=== PATIENT | female | born 1950 | race Caucasian/White ===

== ENCOUNTER 2016-12-22 14:21 | Observation (INO) | payer MEDICARE, BC ==
--- NOTE | 2016-12-22 15:01 | ED ---
General Adult HPI - General Chief complaint: Chest Pain Stated complaint: Chest Pain Time Seen by Provider: 12/22/16 14:36 Source: patient, RN notes reviewed, old records reviewed Mode of arrival: wheelchair Limitations: no limitations - History of Present Illness Initial comments: This is a 66-year-old female ER for evaluation. Patient left-sided her palpitations pressure and shortness of breath. Patient symptoms for 3 days on and off. Not consistent. No fevers, congestion, multiple surgeries and history of CVA. Patient comes in today with continued palpitations and pain. Does admit to increased anxiety. Patient states she also had a near syncopal event earlier today. - Related Data Home Medications Medication Instructions Recorded Confirmed ALPRAZolam [Xanax] 1 mg PO TID PRN 12/20/15 12/22/16 Cholecalciferol [Vitamin D3] 1,000 unit PO DAILY 12/20/15 12/22/16 Cyanocobalamin (Vitamin B-12) 2,500 mcg SUBLINGUAL DAILY 12/20/15 12/22/16 [Vitamin B12] Levothyroxine Sodium [Synthroid] 75 mcg PO DAILY 12/20/15 12/22/16 Loratadine [Claritin] 10 mg PO DAILY 12/20/15 12/22/16 Multivitamins, Thera [Multivitamin] 1 tab PO DAILY 12/20/15 12/22/16 traMADol HCl [Ultram] 50 mg PO TID PRN 12/20/15 12/22/16 Citalopram Hydrobromide [CeleXA] 20 mg PO HS 12/22/16 12/22/16 Etodolac [Lodine XR] 600 mg PO BID 12/22/16 12/22/16 Melatonin 2.5mg 2.5 mg PO HS PRN 12/22/16 12/22/16 Pregabalin [Lyrica] 75 mg PO HS 12/22/16 12/22/16 Allergies Allergy/AdvReac Type Severity Reaction Status Date / Time fluticasone propionate Allergy Rapid Verified 12/22/16 15:11 [From Advair Diskus] Heart Rate prednisone Allergy Rapid Verified 12/22/16 15:11 Heart Rate salmeterol xinafoate Allergy Rapid Verified 12/22/16 15:11 [From Advair Diskus] Heart Rate Sulfa (Sulfonamide Allergy Nausea & Verified 12/22/16 15:11 Antibiotics) Vomiting Review of Systems ROS Statement: Those systems with pertinent positive or pertinent negative responses have been documented in the HPI. ROS Other: All systems not noted in ROS Statement are negative. Past Medical History Past Medical History: Asthma, GERD/Reflux, Osteoarthritis (OA), Thyroid Disorder Additional Past Medical History / Comment(s): migraines, sarcoidosis, hearburn, blood in stool, hx diverticulosis, essential tremors-slight tremor left hand, parkinsons History of Any Multi-Drug Resistant Organisms: None Reported Past Surgical History: Appendectomy, Bariatric Surgery, Bowel Resection, Cholecystectomy, Joint Replacement, Orthopedic Surgery Additional Past Surgical History / Comment(s): kenyatta knee replacement, left shoulder rotator cuff, lap band, gastric sleeve Past Anesthesia/Blood Transfusion Reactions: No Reported Reaction Past Psychological History: Anxiety Smoking Status: Never smoker Past Alcohol Use History: Rare Past Drug Use History: None Reported - Past Family History Mother Family Medical History: Cancer Father Family Medical History: Cancer Sister(s) Family Medical History: Cancer General Exam Limitations: no limitations Course Vital Signs 12/22/16 14:30 Temperature 98.5 F Pulse Rate 71 Respiratory 18 Rate Blood Pressure 173/77 O2 Sat by Pulse 97 Oximetry - Reevaluation(s) Reevaluation #1: 12/22/16 16:11 Patient still does have symptoms of palpitations and pain. Very anxious EKG Findings - EKG Comments: EKG Findings:: EKG shows normal sinus rhythm rate of 62, CT 178, QRS 78, QTC 401 Medical Decision Making - Medical Decision Making 66 female the ER for evaluation of chest pain. Fluttering in his chest and palpitations. Left-sided. Mild shortness of breath and anxiety. Patient does have history of CVA of stress test greater than 50 seniors ago. Patient be admitted for cardiac observation initial EKG and troponin are negative - Lab Data Result diagrams: 12/22/16 14:45 12/22/16 14:45 Lab Results 12/22/16 12/22/16 12/22/16 Range/Units 14:45 14:45 14:45 WBC 10.1 (3.8-10.6) k/uL RBC 5.13 (3.80-5.40) m/uL Hgb 14.6 (11.4-16.0) gm/dL Hct 45.8 (34.0-46.0) % MCV 89.4 (80.0-100.0) fL MCH 28.5 (25.0-35.0) pg MCHC 31.9 (31.0-37.0) g/dL RDW 13.3 (11.5-15.5) % Plt Count 312 (150-450) k/uL Neutrophils % 78 % Lymphocytes % 15 % Monocytes % 4 % Eosinophils % 1 % Basophils % 0 % Neutrophils # 7.9 H (1.3-7.7) k/uL Lymphocytes # 1.5 (1.0-4.8) k/uL Monocytes # 0.4 (0-1.0) k/uL Eosinophils # 0.1 (0-0.7) k/uL Basophils # 0.0 (0-0.2) k/uL PT (9.0-12.0) sec INR (<1.1) APTT (22.0-30.0) sec Sodium 143 (137-145) mmol/L Potassium 4.0 (3.5-5.1) mmol/L Chloride 104 (98-107) mmol/L Carbon Dioxide 28 (22-30) mmol/L Anion Gap 11 mmol/L BUN 17 (7-17) mg/dL Creatinine 0.69 (0.52-1.04) mg/dL Est GFR (MDRD) Af Amer >60 (>60 ml/min/1.73 sqM) Est GFR (MDRD) Non-Af >60 (>60 ml/min/1.73 sqM) Glucose 102 H (74-99) mg/dL Calcium 9.5 (8.4-10.2) mg/dL Magnesium 1.8 (1.6-2.3) mg/dL Total Bilirubin 0.6 (0.2-1.3) mg/dL AST 18 (14-36) U/L ALT 26 (9-52) U/L Alkaline Phosphatase 124 (38-126) U/L Total Creatine Kinase 53 (30-135) U/L CK-MB (CK-2) 0.6 (0.0-2.4) ng/mL CK-MB (CK-2) Rel Index 1.1 Troponin I <0.012 (0.000-0.034) ng/mL Total Protein 8.0 (6.3-8.2) g/dL Albumin 4.1 (3.5-5.0) g/dL 12/22/16 Range/Units 14:45 WBC (3.8-10.6) k/uL RBC (3.80-5.40) m/uL Hgb (11.4-16.0) gm/dL Hct (34.0-46.0) % MCV (80.0-100.0) fL MCH (25.0-35.0) pg MCHC (31.0-37.0) g/dL RDW (11.5-15.5) % Plt Count (150-450) k/uL Neutrophils % % Lymphocytes % % Monocytes % % Eosinophils % % Basophils % % Neutrophils # (1.3-7.7) k/uL Lymphocytes # (1.0-4.8) k/uL Monocytes # (0-1.0) k/uL Eosinophils # (0-0.7) k/uL Basophils # (0-0.2) k/uL PT 11.3 (9.0-12.0) sec INR 1.1 (<1.1) APTT 23.8 (22.0-30.0) sec Sodium (137-145) mmol/L Potassium (3.5-5.1) mmol/L Chloride (98-107) mmol/L Carbon Dioxide (22-30) mmol/L Anion Gap mmol/L BUN (7-17) mg/dL Creatinine (0.52-1.04) mg/dL Est GFR (MDRD) Af Amer (>60 ml/min/1.73 sqM) Est GFR (MDRD) Non-Af (>60 ml/min/1.73 sqM) Glucose (74-99) mg/dL Calcium (8.4-10.2) mg/dL Magnesium (1.6-2.3) mg/dL Total Bilirubin (0.2-1.3) mg/dL AST (14-36) U/L ALT (9-52) U/L Alkaline Phosphatase (38-126) U/L Total Creatine Kinase (30-135) U/L CK-MB (CK-2) (0.0-2.4) ng/mL CK-MB (CK-2) Rel Index Troponin I (0.000-0.034) ng/mL Total Protein (6.3-8.2) g/dL Albumin (3.5-5.0) g/dL - Radiology Data Radiology results: report reviewed (Chest x-ray negative for acute disease), image reviewed Critical Care Time Critical Care Time: Yes Total Critical Care Time: 31 Disposition Clinical Impression: Chest pain Disposition: HOME SELF-CARE Condition: Good Instructions: Chest Pain (ED) Referrals: Rajan Henao DO [Primary Care Provider] - 1-2 days
[2016-12-22 15:04] LABS: Basophils % (A) 0 %; CH 29.4; Eosinophils # (A) 0.1 k/uL (0-0.7); Eosinophils % (A) 1 %; HCT 45.8 % (34.0-46.0); HDW 2.28; HGB 14.6 gm/dL (11.4-16.0); Luc # (Auto) 0.18; Luc % (Auto) 2; Lymphocytes # (A) 1.5 k/uL (1.0-4.8); Lymphocytes % (A) 15 %; MCH 28.5 pg (25.0-35.0); MCHC 31.9 g/dL (31.0-37.0); MCV 89.4 fL (80.0-100.0); Mean Platelet Volume 6.5; Monocytes # (A) 0.4 k/uL (0-1.0); Monocytes % (A) 4 %; Neutrophils # (A) 7.9 k/uL (1.3-7.7); Neutrophils % (A) 78 %; RBC 5.13 m/uL (3.80-5.40); RDW 13.3 % (11.5-15.5); WBC 10.1 k/uL (3.8-10.6); WBC (Perox) 10.32
[2016-12-22 15:12] LABS: ALT 26 U/L (9-52); AST 18 U/L (14-36); Alkaline Phosphatase 124 U/L (38-126); Anion Gap 11 mmol/L; Blood Urea Nitrogen 17 mg/dL (7-17); Calcium 9.5 mg/dL (8.4-10.2); Carbon Dioxide 28 mmol/L (22-30); Chloride 104 mmol/L (98-107); Glucose 102 mg/dL (74-99); Magnesium 1.8 mg/dL (1.6-2.3); Non-African American GFR(MDRD) >60 (>60 ml/min/1.73 sqM); Sodium 143 mmol/L (137-145); Total Bilirubin 0.6 mg/dL (0.2-1.3)
[2016-12-22 15:13] LABS: INR 1.1 (<1.1); Partial Thromboplastin Time 23.8 sec (22.0-30.0); Prothrombin Time 11.3 sec (9.0-12.0)
--- NOTE | 2016-12-22 15:15 | XR ---
EXAMINATION TYPE: XR chest 2V DATE OF EXAM: 12/22/2016 3:09 PM COMPARISON: NONE HISTORY: Chest pain TECHNIQUE: Frontal and lateral views of the chest are obtained. FINDINGS: Heart size is borderline increased. There are overlying cardiac leads. No pneumothorax or pleural effusion. Minimal patchy basilar density suspected on the lateral view. Patient is rotated. P ulmonary vascularity and kasey are within normal limits. IMPRESSION: There may be basilar atelectasis or early airspace disease, cardiomegaly is suspected. R otated exam, follow-up as indicated
[2016-12-22 15:19] LABS: Creatine Kinase 53 U/L (30-135)
[2016-12-22 15:32] LABS: Creatine Kinase MB 0.6 ng/mL (0.0-2.4); Troponin I <0.012 ng/mL (0.000-0.034)
[2016-12-22] MEDS ORDERED: NITROGLYCERIN SL TABS 0.4 MG TAB SUBLINGUAL PRN (16:04)
[2016-12-22] MEDS ORDERED: ASPIRIN 81 MG CHEW PO STA (16:04)
[2016-12-22] MEDS ORDERED: HEPARIN SODIUM,PORCINE 5,000 UNIT/ML 1 ML VIAL IV ONE (16:04)
[2016-12-22] MEDS ORDERED: HEPARIN SODIUM,PORCINE/D5W PMX 25,000 UNIT in DEXTROSE/WATER 1 500ML.BAG IV SCH (16:15)
[2016-12-22] MEDS: SODIUM CHLORIDE 0.9% 1,000 ML IV SCH (16:22)
[2016-12-22] MEDS: HEPARIN SODIUM,PORCINE 5,000 UNIT/ML 1 ML VIAL IV PRN (16:25)
[2016-12-22] MEDS ORDERED: MELATONIN 5 MG TABLET PO PRN (21:00)
[2016-12-22] MEDS ORDERED: ALPRAZolam 0.5 MG TAB PO PRN (21:00)
[2016-12-22] MEDS ORDERED: CITALOPRAM HYDROBROMIDE 20 MG TAB PO SCH (21:00)
[2016-12-22] MEDS ORDERED: traMADol 50 MG TAB PO PRN (21:00)
[2016-12-22] MEDS ORDERED: PREGABALIN 75 MG CAP PO SCH (21:15)
[2016-12-22 21:18] LABS: Creatine Kinase 55 U/L (30-135)
[2016-12-22 21:32] LABS: Creatine Kinase MB 0.7 ng/mL (0.0-2.4); Troponin I <0.012 ng/mL (0.000-0.034)
[2016-12-22] MEDS: ETODOLAC 400 MG TAB PO SCH (22:00)
[2016-12-23] MEDS: HEPARIN SODIUM,PORCINE 5,000 UNIT/ML 1 ML VIAL IV PRN (01:53)
[2016-12-23 03:37] LABS: Mean Platelet Volume 7.3
[2016-12-23 04:17] LABS: Creatine Kinase 55 U/L (30-135)
[2016-12-23 04:20] LABS: Cholesterol 193 mg/dL (<200); HDL Cholesterol 58 mg/dL (40-60); Triglycerides 110 mg/dL (<150)
[2016-12-23 04:29] LABS: Creatine Kinase MB 0.6 ng/mL (0.0-2.4); Troponin I <0.012 ng/mL (0.000-0.034)
[2016-12-23] MEDS ORDERED: LEVOTHYROXINE 75 MCG TAB PO SCH (06:30)
[2016-12-23 08:00] VITALS: RESP 18
[2016-12-23] MEDS ORDERED: ASPIRIN 325 MG TAB PO SCH (09:00)
[2016-12-23] MEDS ORDERED: LORATADINE 10 MG TAB PO SCH (09:00)
[2016-12-23] MEDS ORDERED: ATORVASTATIN 80 MG TAB PO SCH (09:00)
[2016-12-23] MEDS ORDERED: DOBUTamine DRIP for NUC MED 500 MG in DEXTROSE/WATER 1 250ML.BAG IV ONE (10:20)
--- NOTE | 2016-12-23 10:24 | P.CRDCN ---
History of Present Illness Consult date: 12/23/16 Requesting physician: Valencia June Consult reason: chest pain Chief complaint: Chest discomfort History of present illness: This is a 66-year-old female with history of prior CVA, sarcoidosis, Parkinson's, prior hypertension, she used to take medication for blood pressure but had gastric sleeve surgery, lost approximately 120 pounds and since then has not been on any antihypertensives, she does have hypothyroidism, diverticulosis and Mild anxiety. Patient does not have diabetes, no hyperlipidemia, nonsmoker, no family history of premature coronary artery disease. Patient presents to the hospital with symptoms of discomfort that started in the lower epigastric area, she states then it feels like shocking, stabbing sensations echo throughout her entire body down into the abdomen and up into her face. She states that she experiences these symptoms off and on with or without exertion. Symptoms lasted seconds to 1 minute in duration. Patient then becomes extremely anxious when these symptoms occur. EKG on arrival showed normal sinus rhythm with no acute changes. EKG this morning shows normal sinus rhythm with no acute changes. Laboratory data, CBC normal. Potassium 4.0, BUN 17, creatinine 0.6. Troponins negative 3. Cholesterol 193 , LDL 113, triglycerides 110, HDL 58. Blood pressure 173/77 on admission. Blood pressure this morning 107/60 heart rate in the 60s. Chest x-ray reveals bibasilar atelectasis. At the time of my examination this morning, patient's only complaint is that of a headache. Past Medical History Past Medical History: Asthma, CVA/TIA, Fibromyalgia, GERD/Reflux, Osteoarthritis (OA), Thyroid Disorder Additional Past Medical History / Comment(s): migraines, sarcoidosis, hearburn, hx diverticulosis/gastritis/esophagitis, essential tremors-slight tremor left hand, parkinsons, carpal tunnel,"stroke when i was in my 20's when i was on control-affected non dominant side (lt) ."my whole left side feels numb under the skin", chronic back pain, sciatic nerve pain. pt stated -had a pne vaccine 2-3 years ago but not srue of date. History of Any Multi-Drug Resistant Organisms: None Reported Past Surgical History: Appendectomy, Bariatric Surgery, Bowel Resection, Cholecystectomy, Joint Replacement, Orthopedic Surgery Additional Past Surgical History / Comment(s): kenyatta knee replacement, left shoulder rotator cuff, lap band- then removed , gastric sleeve Past Anesthesia/Blood Transfusion Reactions: No Reported Reaction Additional Past Anesthesia/Blood Transfusion Reaction / Comment(s): clausterphobia Past Psychological History: Anxiety Additional Psychological History / Comment(s): pt lives in house with , has 5 or 6 steps to get into house. home is on one level, has 2 dogs. no outside services. has cane/ealker,shower chair and raised toilet. pt is retired- worked in retail. Smoking Status: Never smoker Past Alcohol Use History: Rare Past Drug Use History: None Reported - Past Family History Mother Family Medical History: Cancer Father Family Medical History: Cancer Sister(s) Family Medical History: Cancer Medications and Allergies Home Medications Medication Instructions Recorded Confirmed Type ALPRAZolam [Xanax] 1 mg PO TID PRN 12/20/15 12/22/16 History Cholecalciferol [Vitamin D3] 1,000 unit PO DAILY 12/20/15 12/22/16 History Cyanocobalamin (Vitamin B-12) 2,500 mcg SUBLINGUAL DAILY 12/20/15 12/22/16 History [Vitamin B12] Levothyroxine Sodium [Synthroid] 75 mcg PO DAILY 12/20/15 12/22/16 History Loratadine [Claritin] 10 mg PO DAILY 12/20/15 12/22/16 History Multivitamins, Thera [Multivitamin] 1 tab PO DAILY 12/20/15 12/22/16 History traMADol HCl [Ultram] 50 mg PO TID PRN 12/20/15 12/22/16 History Citalopram Hydrobromide [CeleXA] 20 mg PO HS 12/22/16 12/22/16 History Etodolac [Lodine XR] 600 mg PO BID 12/22/16 12/22/16 History Melatonin 2.5mg 2.5 mg PO HS PRN 12/22/16 12/22/16 History Pregabalin [Lyrica] 75 mg PO HS 12/22/16 12/22/16 History Allergies Allergy/AdvReac Type Severity Reaction Status Date / Time fluticasone propionate Allergy Rapid Verified 12/22/16 15:11 [From Advair Diskus] Heart Rate prednisone Allergy Rapid Verified 12/22/16 15:11 Heart Rate salmeterol xinafoate Allergy Rapid Verified 12/22/16 15:11 [From Advair Diskus] Heart Rate Sulfa (Sulfonamide Allergy Nausea & Verified 12/22/16 15:11 Antibiotics) Vomiting Physical Exam Vitals: Vital Signs Temp Pulse Pulse Resp BP BP Pulse Ox 12/23/16 07:59 97.9 F 65 18 107/54 95 12/23/16 04:00 97.7 F 65 16 148/72 94 L 12/23/16 00:00 97.7 F 70 16 135/70 95 12/22/16 23:40 68 16 12/22/16 20:16 78 16 175/88 97 12/22/16 20:00 78 16 12/22/16 18:34 98.2 F 75 16 177/81 93 L 12/22/16 18:03 97.7 F 68 16 138/87 98 12/22/16 16:09 97.6 F 65 16 156/71 97 Intake and Output 12/22/16 12/23/16 12/23/16 22:59 06:59 14:59 Intake Total 189 Balance 189 Intake: Intake, IV Titration 189 Amount Heparin Sodium,Porcine/ 189 D5w Pmx 25,000 unit In Dextrose/Water 1 500ml. bag @ 8.48 UNITS/KG/HR 20 mls/hr IV .Q24H [facility] Rx#: [id number] Other: Voiding Method Toilet Toilet # Voids 2 Weight 117.5 kg 117.5 kg PHYSICAL EXAMINATION: HEENT: Head is atraumatic, normocephalic. Pupils equal, round. Neck is supple. There is no elevated jugular venous pressure. HEART EXAMINATION: Heart S1 and S2 systolic murmur is heard CHEST EXAMINATION: Lungs are clear to auscultation and precussion. No chest wall tenderness is noted on palpation or with deep breathing. ABDOMEN: Soft, obese, nontender. Bowel sounds are heard. No organomegaly noted. EXTREMITIES: 2+ peripheral pulses with trace evidence of peripheral edema and no calf tenderness noted. NEUROLOGIC patient is awake, alert and oriented -3. . Results 12/23/16 02:54 12/22/16 14:45 Cardiac Enzymes 12/22/16 12/23/16 Range/Units 20:46 02:54 CK-MB (CK-2) 0.7 0.6 (0.0-2.4) ng/mL Troponin I <0.012 <0.012 (0.000-0.034) ng/mL Coagulation 12/23/16 Range/Units 00:59 APTT 29.3 (22.0-30.0) sec Lipids 12/23/16 Range/Units 02:54 Triglycerides 110 (<150) mg/dL Cholesterol 193 (<200) mg/dL HDL Cholesterol 58 (40-60) mg/dL CBC 12/23/16 Range/Units 02:54 Plt Count 298 (150-450) k/uL Current Medications Generic Name Dose Route Start Last Admin Trade Name Freq PRN Reason Stop Dose Admin Alprazolam 1 mg 12/22/16 21:00 12/22/16 22:00 Xanax PO 1 mg TID PRN Administration Anxiety Aspirin 325 mg 12/23/16 09:00 Aspirin PO DAILY [facility] Atorvastatin Calcium 80 mg 12/23/16 09:00 Lipitor PO DAILY [facility] Cholecalciferol 1,000 unit 12/23/16 12:00 Vitamin D3 PO DAILY@1200 [facility] Citalopram Hydrobromide 20 mg 12/22/16 21:00 12/22/16 22:00 Celexa PO 20 mg HS ZEKE Administration Cyanocobalamin 2,000 mcg 12/23/16 12:00 Vitamin B-12 PO DAILY@1200 [facility] Etodolac 400 mg 12/22/16 22:00 12/22/16 22:00 Lodine PO 400 mg TID ZEKE Administration Heparin Sodium (Porcine) 0 unit 12/22/16 16:04 12/23/16 01:53 Heparin IV 4,000 unit Q6HR PRN Administration Low PTT Protocol Heparin Sodium/Dextrose 25,000 500 mls @ 20 mls/hr 12/22/16 16:15 12/23/16 01 :53 unit/ IV Solution IV 11.53 units/kg/hr .Q24H [facility]EKE 27.2 mls/hr Protocol Titration 8.48 UNITS/KG/HR Sodium Chloride 1,000 mls @ 20 mls/hr 12/22/16 16:15 12/22/16 16:22 Saline 0.9% IV 20 mls/hr .Q24H [facility]EKE Administration Levothyroxine Sodium 75 mcg 12/23/16 06:30 12/23/16 04:17 Synthroid PO Not Given DAILY@0630 [facility] Loratadine 10 mg 12/23/16 09:00 Claritin PO DAILY [facility] Melatonin 2.5 mg 12/22/16 21:00 Melatonin PO HS PRN Insomnia Multivitamins 1 each 12/23/16 12:00 Theragran PO DAILY@1200 [facility] Nitroglycerin 0.4 mg 12/22/16 16:04 Nitrostat SUBLINGUAL Q5M PRN Chest Pain Pregabalin 75 mg 12/22/16 21:15 12/22/16 22:01 Lyrica PO 75 mg HS ZEKE Administration Tramadol HCl 50 mg 12/22/16 21:00 Ultram PO TID PRN Pain Intake and Output 12/22/16 12/23/16 12/23/16 22:59 06:59 14:59 Intake Total 189 Balance 189 Intake: Intake, IV Titration 189 Amount Heparin Sodium,Porcine/ 189 D5w Pmx 25,000 unit In Dextrose/Water 1 500ml. bag @ 8.48 UNITS/KG/HR 20 mls/hr IV .Q24H [facility] Rx#: [id number] Other: Voiding Method Toilet Toilet # Voids 2 Weight 117.5 kg 117.5 kg 12/23/16 02:54 EKG Interpretations (text) EKG shows normal sinus rhythm with no acute changes. Assessment and Plan Plan: Assessment and plan #1 chest pain, atypical in nature. Troponins negative 3, EKG shows normal sinus rhythm with no acute changes. #2 history of prior hypertension, status post gastric sleeve surgery, antihypertensives discontinued at that time. #3 prior CVA Number for sarcoidosis #5 Parkinson's #6 anxiety #7 diverticulosis #8 hypothyroidism Plan We will obtain an echocardiogram with Doppler study. Obtain fasting lipid profile. Discontinue IV heparin, discontinue Nitropaste. Decrease aspirin 81 mg daily. Patient has been advised to undergo dobutamine echocardiographic study today. Further recommendations will be based on these findings and the patient's clinical course. DNP note has been reviewed, I agree with a documented findings and plan of care. Patient was seen and examined.
[2016-12-23] MEDS: ETODOLAC 400 MG TAB PO SCH (10:38)
[2016-12-23 11:47] VITALS: BP 144/67; PULSE 69; TEMP 98.2
[2016-12-23] MEDS ORDERED: CHOLECALCIFEROL 1,000 UNIT TAB PO SCH (12:00)
[2016-12-23] MEDS ORDERED: CYANOCOBALAMIN 500 MCG TAB PO SCH (12:00)
[2016-12-23] MEDS ORDERED: MULTIVITAMINS, THERA 1 EACH TAB PO SCH (12:00)
--- NOTE | 2016-12-23 12:27 | ECHOS ---
DATE OF SERVICE: 12/23/2016 AGE: 66Y SEX: F HT: 62" WT: 259 lbs. Protocol [place]: Others: Dobutamine Stress Echo Stage: 3 Dur. of Exercise: 6:30 *Heart Rate Blood Pressure *Rest: 62 Rest: 125/68 * *Max. Achieved: 138 Maximum BP: 204/47 85% PMHR: 130 100% PMHR: 153 *METS: - INDICATIONS: Chest pain. MEDICATIONS: - Baseline EKG shows sinus rhythm, normal axis, normal intervals. Patient was given intravenous dobutamine over a period of 6-1/2 minutes as per protocol. Did not have chest pain or diagnostic ST-segment depression. Patient attained 90% of predicted maximal heart rate. Baseline echo shows normal left ventricular size, wall motion and systolic function with a technically suboptimal study and contrast agent was used to enhance endocardial visualization. Post-dobutamine infusion, there is normal hyperdynamic response of all segments of myocardium noted. CONCLUSION: 1. Negative stress test by EKG criteria. 2. Negative dobutamine echo.
--- NOTE | 2016-12-23 13:13 | P.HPIM ---
History of Present Illness H&P Date: 12/23/16 Chief Complaint: Chest pain. History of physical and discharge summary. This is a 66-year-old female one of Dr. Henao with a pacemaker history significant for asthma, CVA/TIA, fibromyalgia, GERD, osteophytes, hypothyroidism, pulmonary sarcoidosis, migraine headaches, ever to close his, essential tremor, Parkinson, carpal tunnel syndrome, morbid obesity post laparoscopic band surgery followed by sleeve gastrectomy for which she had lost about 120 pounds over the past 4 years, patient presented to the emergency department at [facility] yesterday because of episodes that she described as fullness in her stomach associated with electric activity all over her body including her left upper extremity associated with nausea and some difficulty in breathing, patient stated that these episodes have not happened over the last 2 months however started on Thursday and between Thursday and yesterday she did have 12 of them she ended up coming to the ER at [facility] had an EKG that did not show any acute of normalities, her cardiac enzymes were negative, however because of her risk factor it was decided by the emergency room physician to admit the patient for evaluation for possible CAD. Review of Systems Constitutional: Reports chronic pain, Reports fatigue, Reports weakness, Reports weight gain, Denies anorexia, Denies chronic headaches Eyes: denies blurred vision, denies bulging eye, denies decreased vision Ears: deny: decreased hearing Ears, nose, mouth and throat: Denies dysphagia, Denies neck lump, Denies swelling in throat, Denies sore throat, Denies vertigo Cardiovascular: Reports chest pain, Reports dyspnea on exertion, Reports high blood pressure, Reports lightheadedness, Reports palpitations, Reports shortness of breath, Denies rapid heart beat, Denies syncope Respiratory: Reports sleep apnea, Reports snoring, Denies congestion, Denies cough with sputum, Denies home oxygen, Denies wheezing Gastrointestinal: Reports bloating, Reports dyspepsia, Reports nausea, Denies abdominal pain, Denies constipation, Denies diarrhea, Denies excessive gas, Denies heartburn, Denies hematemesis, Denies melena, Denies vomiting Genitourinary: Denies dysuria, Denies hematuria Menstruation: Reports post hysterectomy Musculoskeletal: Reports low back pain, Reports muscle cramps, Reports myalgias Musculoskeletal: absent: ankle pain, ankle stiffness, ankle swelling, elbow pain , elbow stiffness, elbow swelling, foot pain, foot stiffness, foot swelling, hand pain, hand stiffness, hand swelling, hip pain, hip stiffness, hip swelling , knee pain, knee stiffness, knee swelling, shoulder pain, shoulder stiffness, shoulder swelling, wrist pain, wrist stiffness, wrist swelling Integumentary: Denies pruritus, Denies rash Neurological: Denies numbness, Denies weakness Psychiatric: Reports anxiety, Reports anxiety attacks, Reports depression, Reports irritability Endocrine: Denies fatigue, Denies weight change Past Medical History Past Medical History: Asthma, CVA/TIA, Fibromyalgia, GERD/Reflux, Hyperlipidemia , Musculoskeletal Disorder, Osteoarthritis (OA), Thyroid Disorder Additional Past Medical History / Comment(s): migraines, sarcoidosis, hearburn, hx diverticulosis/gastritis/esophagitis, essential tremors-slight tremor left hand, parkinsons, carpal tunnel,"stroke when i was in my 20's when i was on control-affected non dominant side (lt) ."my whole left side feels numb under the skin", chronic back pain, sciatic nerve pain. pt stated -had a pne vaccine 2-3 years ago but not srue of date. History of Any Multi-Drug Resistant Organisms: None Reported Past Surgical History: Appendectomy, Bariatric Surgery, Bowel Resection, Cholecystectomy, Joint Replacement, Orthopedic Surgery Additional Past Surgical History / Comment(s): kenyatta knee replacement, left shoulder rotator cuff, lap band- then removed , gastric sleeve Past Anesthesia/Blood Transfusion Reactions: No Reported Reaction Additional Past Anesthesia/Blood Transfusion Reaction / Comment(s): clausterphobia Past Psychological History: Anxiety Additional Psychological History / Comment(s): pt lives in house with , has 5 or 6 steps to get into house. home is on one level, has 2 dogs. no outside services. has cane/ealker,shower chair and raised toilet. pt is retired- worked in retail. Smoking Status: Never smoker Past Alcohol Use History: Rare Past Drug Use History: None Reported - Past Family History Mother Family Medical History: Cancer (Mother at age 78 from gallbladder cancer.) Father Family Medical History: Cancer (Father at age of 72 from esophageal cancer. ) Sister(s) Family Medical History: Cancer (Patient had one sister who from cervical cancer.) Brother(s) Family Medical History: No Reported History (Patient has one brother no major medical problems.) Son(s) Family Medical History: No Reported History (Patient has 3 sons one of them with irritable bowel syndrome) Medications and Allergies Home Medications Medication Instructions Recorded Confirmed Type ALPRAZolam [Xanax] 1 mg PO TID PRN 12/20/15 12/22/16 History Cholecalciferol [Vitamin D3] 1,000 unit PO DAILY 12/20/15 12/22/16 History Cyanocobalamin (Vitamin B-12) 2,500 mcg SUBLINGUAL DAILY 12/20/15 12/22/16 History [Vitamin B12] Levothyroxine Sodium [Synthroid] 75 mcg PO DAILY 12/20/15 12/22/16 History Loratadine [Claritin] 10 mg PO DAILY 12/20/15 12/22/16 History Multivitamins, Thera [Multivitamin] 1 tab PO DAILY 12/20/15 12/22/16 History traMADol HCl [Ultram] 50 mg PO TID PRN 12/20/15 12/22/16 History Citalopram Hydrobromide [CeleXA] 20 mg PO HS 12/22/16 12/22/16 History Etodolac [Lodine XR] 600 mg PO BID 12/22/16 12/22/16 History Melatonin 2.5mg 2.5 mg PO HS PRN 12/22/16 12/22/16 History Pregabalin [Lyrica] 75 mg PO HS 12/22/16 12/22/16 History Allergies Allergy/AdvReac Type Severity Reaction Status Date / Time fluticasone propionate Allergy Rapid Verified 12/22/16 15:11 [From Advair Diskus] Heart Rate prednisone Allergy Rapid Verified 12/22/16 15:11 Heart Rate salmeterol xinafoate Allergy Rapid Verified 12/22/16 15:11 [From Advair Diskus] Heart Rate Sulfa (Sulfonamide Allergy Nausea & Verified 12/22/16 15:11 Antibiotics) Vomiting Physical Exam Vitals: Vital Signs Temp Pulse Pulse Resp BP BP Pulse Ox 12/23/16 11:46 98.2 F 69 18 144/67 93 L 12/23/16 07:59 97.9 F 65 18 107/54 95 12/23/16 04:00 97.7 F 65 16 148/72 94 L 12/23/16 00:00 97.7 F 70 16 135/70 95 12/22/16 23:40 68 16 12/22/16 20:16 78 16 175/88 97 12/22/16 20:00 78 16 12/22/16 18:34 98.2 F 75 16 177/81 93 L 12/22/16 18:03 97.7 F 68 16 138/87 98 12/22/16 16:09 97.6 F 65 16 156/71 97 Intake and Output 12/22/16 12/23/16 12/23/16 22:59 06:59 14:59 Intake Total 189 Balance 189 Intake: Intake, IV Titration 189 Amount Heparin Sodium,Porcine/ 189 D5w Pmx 25,000 unit In Dextrose/Water 1 500ml. bag @ 8.48 UNITS/KG/HR 20 mls/hr IV .Q24H ZEKE Rx#: [id number] Other: Voiding Method Toilet Toilet # Voids 2 Weight 117.5 kg 117.5 kg - Constitutional General appearance: no acute distress, obese - EENT Eyes: anicteric sclerae, PERRLA, no ptosis, no scleral icterus, normal appearance ENT: hard of hearing, normal oropharynx, no thrush Ears: bilateral: normal - Neck Neck: no lymphadenopathy, normal ROM, no rigidity, no stridor, no thyromegaly Carotids: bilateral: upstroke normal Thyroid: bilateral: normal size - Respiratory Respiratory: bilateral: diminished, negative: dullness, rales, rhonchi, wheezing , prolonged expiration, prolonged inspiration - Cardiovascular Rhythm: regular Heart sounds: normal: S1, S2 Abnormal Heart Sounds: systolic murmur, no rub, no S3 Gallop, no S4 Gallop, no click - Gastrointestinal General gastrointestinal: normal bowel sounds, soft, no splenomegaly, no tenderness, no umbilical hernia, no ventral hernia - Integumentary Integumentary: normal, normal turgor - Neurologic Neurologic: CNII-XII intact - Musculoskeletal Musculoskeletal: strength equal bilaterally - Psychiatric Psychiatric: A&O x's 3, appropriate affect, intact judgment & insight Results CBC & Chem 7: 12/23/16 02:54 12/22/16 14:45 Labs: Abnormal Lab Results - Last 24 Hours (Table) 12/23/16 Range/Units 02:54 LDL Cholesterol, Calc 113 H (0-99) mg/dL Thrombosis Risk Factor Assmnt - DVT/VTE Prophylaxis DVT/VTE Prophylaxis: Pharmacologic Prophylaxis ordered, Mechanical Prophylaxis ordered - Choose All That Apply Any of the Below Risk Factors Present?: Yes Each Factor Represents 1 point: Obesity (BMI >25), Swollen legs (current) Other Risk Factors: Yes Each Risk Factor Represents 2 Points: Age 61-74 years Other congenital or acquired thrombophilia - If yes, enter type in comment: No Thrombosis Risk Factor Assessment Total Risk Factor Score: 4 Thrombosis Risk Factor Assessment Level: Moderate Risk Assessment and Plan Plan: Assessment and plan: 1. Chest discomfort likely related to anxiety disorder and panic attacks. However the patient does have a few risk factors for CAD, subsequent she would be admitted to the hospital as an observation, she will be seen and evaluated by cardiology, patient is scheduled for an echocardiogram as well as a stress test for further recommendation. 2. History of asthma. Stable at this point in time. 3. History of TIA/CVA. Stable at this time. 4. History of GERD. Continue patient on current PPI. 5. History of osteoarthritis. Continue Lodine. Patient is aware of the side effect of the medication. 6. Fibromyalgia. Continue patient on Lyrica 7. Anxiety disorder with panic attack. Continue Celexa 20 mg orally once every day as well as Xanax 1 mg orally twice every day. 8. Morbid obesity post lap band followed by sleeve gastrectomy. Patient had lost about 120 pounds for the past 4 years . 9. Pulmonary sarcoidosis. Appears to be stable at this time. 10. Reported history of Parkinson. Patient is not taking any medication. 11. Carpal tunnel syndrome severe in the right hand and moderate in the left hand. Stable at this time. 12. History of diverticulosis/diverticulitis post partial colectomy. 13. Patient is full code. 14. Observation. 15. Patient can be discharged home if her stress test is negative and follow up with her primary care physician Dr. Henao as an outpatient in 1 week.
[2016-12-23] MEDS: SODIUM CHLORIDE 0.9% 1,000 ML IV SCH (18:02)
[2016-12-24] MEDS ORDERED: ASPIRIN 81 MG CHEW PO SCH (09:00)
--- NOTE | 2016-12-24 10:14 | ECHOF ---
Referral Reason:chest pain MEASUREMENTS -------- HEIGHT: 157.5 cm WEIGHT: 117.5 kg BP: IVSd: 0.8 cm (0.6 - 1.1) LVIDd: 5.4 cm (3.9 - 5.3) LVPWd: 1.1 cm (0.6 - 1.1) IVSs: 1.4 cm LVIDs: 2.7 cm LVPWs: 2.1 cm Ao Diam: 3.5 cm (2.0 - 3.7) AV Cusp: 1.8 cm (1.5 - 2.6) LA Diam: 3.4 cm (2.7 - 3.8) MV EXCURSION: 19.132 mm (> 18.000) MV EF SLOPE: 93 mm/s (70 - 150) EPSS: 1.3 cm MV E John: 1.11 m/s MV DecT: 156 ms MV A John: 1.33 m/s MV E/A Ratio: 0.83 RAP: 5.00 mmHg RVSP: 13.59 mmHg FINDINGS -------- Sinus rhythm. This was a technically difficult study with suboptimal views. Left ventricular wall thickness is normal. Overall left ventricular systolic function is normal with, an EF between 55 - 60 %. The right ventricle is normal in size and function. The left atrium is normal in size. The right atrium is normal in size. 1.5mg of Definity was utilized for enhancement of images The aortic valve was not well visualized. The mitral valve leaflets are mildly thickened. Mild mitral regurgitation is present. Mild tricuspid regurgitation present. The right ventricular systolic pressure, as measured by Doppler, is 13.59mmHg. Pulmonic valve appears structurally normal. The aortic root, ascending aorta and aortic arch are normal. The pericardium is normal. CONCLUSIONS -------- 1. Sinus rhythm. 2. The mitral valve leaflets are mildly thickened. 3. Mild mitral regurgitation is present. 4. Mild tricuspid regurgitation present. 5. The right ventricular systolic pressure, as measured by Doppler, is 13.59mmHg. 6. Pulmonic valve appears structurally normal. 7. The aortic root, ascending aorta and aortic arch are normal. 8. The pericardium is normal. 9. This was a technically difficult study with suboptimal views. 10. Left ventricular wall thickness is normal. 11. Overall left ventricular systolic function is normal with, an EF between 55 - 60 %. 12. The right ventricle is normal in size and function. 13. The left atrium is normal in size. 14. The right atrium is normal in size. 15. 1.5mg of Definity was utilized for enhancement of images 16. The aortic valve was not well visualized. MODEL PHOTOGRAPHERS': Hanny Echevarria RDCS
== END 2016-12-23 15:45 | disposition home or self-care (01) ==
LOC: EC 14:21 → 3OBS 16:04
PROVIDERS: ADMIT Internal Medicine; ATTEND Internal Medicine
DX: R07.89 Other chest pain (principal); F41.0 Panic disorder [episodic paroxysmal anxiety]; J45.909 Unspecified asthma, uncomplicated; R51 Headache; Z86.73 Personal history of transient ischemic attack (TIA), and cerebral infarction without residual deficits; K21.9 Gastro-esophageal reflux disease without esophagitis; M19.90 Unspecified osteoarthritis, unspecified site; M79.7 Fibromyalgia; E66.01 Morbid (severe) obesity due to excess calories; Z68.42 Body mass index [BMI] 45.0-49.9, adult; D86.0 Sarcoidosis of lung; G20 Parkinson's disease; G56.03 Carpal tunnel syndrome, bilateral upper limbs; K57.90 Diverticulosis of intestine, part unspecified, without perforation or abscess without bleeding; E03.9 Hypothyroidism, unspecified; Z79.899 Other long term (current) drug therapy; Z79.1 Long term (current) use of non-steroidal anti-inflammatories (NSAID); Z88.2 Allergy status to sulfonamides; Z88.8 Allergy status to other drugs, medicaments and biological substances; Z98.84 Bariatric surgery status
CPT/HCPCS: 96376 ×3; 96365 ×2; 96366 ×4; 93005 ×2; 99291; 36415; 93017; 93306; 80061; 80053; 82550 ×2; 82553 ×2; 83735; 84484 ×2; 85025; 85049; 85610; 85730 ×2; 71020; G0378 ×2; C8928; J1250; J1644 ×3; Q9957; 93350

== ENCOUNTER → 2019-01-26 | Outpatient (CLI) | payer MEDICARE, BC ==
--- NOTE | 2019-01-26 12:59 | XR ---
EXAMINATION TYPE: XR chest 2V DATE OF EXAM: 01/26/2019 COMPARISON: 12/22/2016 INDICATION: Sarcoidosis of the lung TECHNIQUE: Frontal and lateral views of the chest are obtained. FINDINGS: The heart size is mildly prominent. The pulmonary vasculature is normal. The lungs are clear. Suspicious hilar adenopathy is not identified. CT could be more sensitive for e valuation. IMPRESSION: 1. Mild cardiomegaly
== END ==
LOC: RADXRMAIN 12:24
PROVIDERS: ATTEND Family Medicine
DX: I51.7 Cardiomegaly (principal); D86.0 Sarcoidosis of lung
CPT/HCPCS: 71046

== ENCOUNTER 2019-02-15 07:56 | Day surgery (SDC) | payer MEDICARE, BC ==
[2019-02-10 17:50] VITALS: BMI 50.3
[~2019-02-15 07:56] MED LIST: LACTATED RINGERS 1,000 ML IV SCH
[2019-02-15] MEDS ORDERED: LACTATED RINGERS 1,000 ML IV ONE (08:23)
[2019-02-15 08:24] VITALS: TEMP 97.2
[2019-02-15] MEDS ORDERED: LIDOCAINE 1% 20 ML VIAL (10MG/ML) FOR IV START INTRADERMA ONE (08:24)
[2019-02-15] MEDS ORDERED: PROPOFOL 10 MG/ML 20 ML VIAL IV ONE (08:35)
--- NOTE | 2019-02-15 08:41 | P.GSHP ---
History of Present Illness H&P Date: 02/15/19 Chief Complaint: GI bleed, anemia This a 68-year-old female who presents today for EGD and colonoscopy. She had issues with GI bleed and anemia. Past Medical History Past Medical History: Asthma, Blood Disorder, CVA/TIA, Fibromyalgia, GERD/Reflux, Hyperlipidemia, Hypertension, Musculoskeletal Disorder, Osteoarthritis (OA), Thyroid Disorder Additional Past Medical History / Comment(s): Migraines, Sarcoidosis, hx diverticulosis/gastritis/esophagitis, Essential tremors, Parkinsons, carpal tunnel. "stroke in my 20's, on BCP - affected non dominant side (lt), NT. HX back pain, sciatic nerve pain. OFF HTN RX W/ WGT LOSS. RECENT ANEMIA. History of Any Multi-Drug Resistant Organisms: None Reported Past Surgical History: Appendectomy, Bariatric Surgery, Bowel Resection, Cholecystectomy, Joint Replacement, Orthopedic Surgery Additional Past Surgical History / Comment(s): carroll knee replacement, left shoulder rotator cuff, lap band- then removed , gastric sleeve. EPIDURAL INJ. COLONOSCOPIES, EGD. CARROLL CATARACTS. Past Anesthesia/Blood Transfusion Reactions: No Reported Reaction Additional Past Anesthesia/Blood Transfusion Reaction / Comment(s): mild claustrophobia Smoking Status: Never smoker - Past Family History Mother Family Medical History: Cancer Additional Family Medical History / Comment(s): GALLBLADDER CA Father Family Medical History: Cancer Additional Family Medical History / Comment(s): THROAT/ESOPHAGEAL CA Sister(s) Family Medical History: Cancer Additional Family Medical History / Comment(s): OVARIAN CA Brother(s) Family Medical History: No Reported History (Patient has one brother no major medical problems.) Son(s) Family Medical History: No Reported History (Patient has 3 sons one of them with irritable bowel syndrome) Medications and Allergies Home Medications Medication Instructions Recorded Confirmed Type ALPRAZolam [Xanax] 1 mg PO TID PRN 12/20/15 02/10/19 History Cholecalciferol [Vitamin D3 (25 5,000 unit PO DAILY 12/20/15 02/10/19 History Mcg = 1000 Iu)] Cyanocobalamin (Vitamin B-12) 5,000 mcg SUBLINGUAL DAILY 12/20/15 02/10/19 History [Vitamin B-12] Levothyroxine Sodium [Synthroid] 75 mcg PO DAILY 12/20/15 02/10/19 History Loratadine [Claritin] 10 mg PO DAILY 12/20/15 02/10/19 History Multivitamins, Thera [Multivitamin 1 tab PO DAILY 12/20/15 02/10/19 History (formulary)] traMADol HCl [Ultram] 50 mg PO TID PRN 12/20/15 02/10/19 History Etodolac [Lodine XR] 600 mg PO BID 12/22/16 02/10/19 History Pregabalin [Lyrica] 75 mg PO HS 12/22/16 02/10/19 History Beclomethasone Dipropionate [Qvar 1 puff INHALATION BID 02/10/19 02/10/19 History 80 mcg] Butalb/APAP/Caff 50-325-40Mg 1 - 2 tab PO DAILY PRN 02/10/19 02/10/19 History [Fioricet 50-325-40] DULoxetine HCL [Cymbalta] 60 mg PO HS 02/10/19 02/10/19 History Ferrous Sulfate [Feosol] 325 mg PO DAILY 02/10/19 02/10/19 History Furosemide [Lasix] 20 mg PO DAILY 02/10/19 02/10/19 History Omeprazole [PriLOSEC] 20 mg PO AC-BID 02/10/19 02/10/19 History Allergies Allergy/AdvReac Type Severity Reaction Status Date / Time fluticasone propionate Allergy Rapid Verified 02/10/19 17:18 [From Advair Diskus] Heart Rate prednisone Allergy Rapid Verified 02/10/19 17:18 Heart Rate salmeterol xinafoate Allergy Rapid Verified 02/10/19 17:18 [From Advair Diskus] Heart Rate Sulfa (Sulfonamide Allergy Nausea & Verified 02/10/19 17:18 Antibiotics) Vomiting Surgical - Exam Vital Signs Temp Pulse Resp BP Pulse Ox 97.2 F L 94 18 174/81 93 L 02/15/19 08:23 02/15/19 08:23 02/15/19 08:23 02/15/19 08:23 02/15/19 08:23 - General well developed, well nourished, no distress - Eyes PERRL - ENT normal pinna - Neck no masses - Respiratory normal expansion - Cardiovascular Rhythm: regular - Abdomen Abdomen: soft, non tender Assessment and Plan Assessment: GI bleed, anemia. We'll perform EGD and colonoscopy.
--- NOTE | 2019-02-15 09:04 | P.OP ---
Date of Procedure: 02/15/19 Preoperative Diagnosis: GI bleed Anemia Postoperative Diagnosis: Antral gastritis Diverticulosis Procedure(s) Performed: EGD Colonoscopy Anesthesia: MAC Surgeon: Rudolph Boudreaux Pathology: other (Antrum, esophagus) Condition: stable Disposition: PACU Description of Procedure: The patient's placed on the endoscopy table in the lateral position. She received IV sedation. The gastroscope placed oropharynx and passed in the esophagus and into the stomach. The scope was then placed through the pylorus. The first and second portion of the duodenum appeared normal. Scope was then brought back the antrum this is minimally inflamed. A biopsies performed. The scope was then brought back through the stomach. Patient had previous history of gastric sleeve surgery the sleeve appeared to be mildly dilated. The GE junction was at 47 is. The distal esophagus appeared normal. The proximal esophagus appeared normal. There is no evidence of any upper GI bleed. Next digital rectal exam was performed which revealed no ebonized. The flexible colonoscope was then placed patient anus passed throughout the entire colon. The ileocecal valve was visually is. The cecum, ascending and transverse colon appeared normal. The descending colon was moderate diverticular changes. There is no evidence of any active diverticulitis or diverticular bleeding. Scope was then brought back the rectum and this appeared normal. Scope was withdrawn for patient. There is no evidence of any active GI bleed. Is resume the patient may have had GI bleed due to diverticulosis.
[2019-02-15 09:22] VITALS: BP 139/78; PULSE 75; RESP 18
== END 2019-02-15 09:36 | disposition home or self-care (01) ==
LOC: ORWHC2ENDO 07:56
PROVIDERS: ATTEND Surgery
DX: K29.50 Unspecified chronic gastritis without bleeding (principal); K57.30 Diverticulosis of large intestine without perforation or abscess without bleeding; D64.9 Anemia, unspecified; D86.9 Sarcoidosis, unspecified; E07.9 Disorder of thyroid, unspecified; E78.5 Hyperlipidemia, unspecified; G20 Parkinson's disease; G25.0 Essential tremor; I10 Essential (primary) hypertension; J45.909 Unspecified asthma, uncomplicated; K21.9 Gastro-esophageal reflux disease without esophagitis; M19.90 Unspecified osteoarthritis, unspecified site; M79.7 Fibromyalgia; I69.354 Hemiplegia and hemiparesis following cerebral infarction affecting left non-dominant side; Z96.653 Presence of artificial knee joint, bilateral; Z98.84 Bariatric surgery status; Z90.49 Acquired absence of other specified parts of digestive tract; Z98.42 Cataract extraction status, left eye; Z98.41 Cataract extraction status, right eye; Z80.0 Family history of malignant neoplasm of digestive organs; E66.01 Morbid (severe) obesity due to excess calories; Z68.43 Body mass index [BMI] 50.0-59.9, adult; Z79.899 Other long term (current) drug therapy; Z88.2 Allergy status to sulfonamides; Z88.8 Allergy status to other drugs, medicaments and biological substances; Z79.890 Hormone replacement therapy; Z80.49 Family history of malignant neoplasm of other genital organs
CPT/HCPCS: 88305; 45378; 43239; J2704

== ENCOUNTER 2019-07-21 21:08 | Inpatient (IN) | payer MEDICARE, BC, OTHER ==
--- NOTE | 2019-07-21 21:20 | ED ---
GI Bleed HPI - General Stated complaint: GI Bleed Time Seen by Provider: 07/21/19 21:10 Source: patient, EMS Mode of arrival: EMS - History of Present Illness Initial comments: This patient is a 68-year-old woman brought by ambulance to be evaluated for passing stools with blood. The patient states that her symptoms started yesterday during the day. She is not able to quantify the number of stools she has had with any blood. She states she is not having any chest or abdominal pain. She has not had any episodes of vomiting. The patient does have some lightheadedness. There is no dyspnea, diaphoresis, palpitations or syncope. MD complaint: melena Onset/Timin -: days(s) Radiation: none Severity scale (1-10): 0 Quality: painless Consistency: constant Improves with: none Worsens with: none Associated Symptoms: other (Lightheaded) - Related Data Home Medications Medication Instructions Recorded Confirmed ALPRAZolam [Xanax] 1 mg PO TID PRN 12/20/15 07/21/19 Cholecalciferol [Vitamin D3 (25 5,000 unit PO HS 12/20/15 07/21/19 Mcg = 1000 Iu)] Cyanocobalamin (Vitamin B-12) 5,000 mcg SUBLINGUAL DAILY 12/20/15 07/21/19 [Vitamin B-12] Levothyroxine Sodium [Synthroid] 75 mcg PO DAILY 12/20/15 07/21/19 Loratadine [Claritin] 10 mg PO DAILY 12/20/15 07/21/19 Multivitamins, Thera [Multivitamin 1 tab PO DAILY 12/20/15 07/21/19 (formulary)] Etodolac [Lodine XR] 600 mg PO BID 12/22/16 07/21/19 Pregabalin [Lyrica] 75 mg PO HS 12/22/16 07/21/19 Butalb/APAP/Caff 50-325-40Mg 1 - 2 tab PO DAILY PRN 02/10/19 07/21/19 [Fioricet 50-325-40] DULoxetine HCL [Cymbalta] 60 mg PO HS 02/10/19 07/21/19 Ferrous Sulfate [Feosol] 325 mg PO DAILY 02/10/19 07/21/19 Furosemide [Lasix] 20 mg PO DAILY 02/10/19 07/21/19 Omeprazole [PriLOSEC] 20 mg PO AC-BID 02/10/19 07/21/19 Allergies Allergy/AdvReac Type Severity Reaction Status Date / Time fluticasone propionate AdvReac Rapid Verified 07/21/19 22:02 [From Advair Diskus] Heart Rate prednisone AdvReac Rapid Verified 07/21/19 22:02 Heart Rate salmeterol xinafoate AdvReac Rapid Verified 07/21/19 22:02 [From Advair Diskus] Heart Rate Sulfa (Sulfonamide AdvReac Nausea & Verified 07/21/19 22:02 Antibiotics) Vomiting Review of Systems ROS Statement: Those systems with pertinent positive or pertinent negative responses have been documented in the HPI. ROS Other: All systems not noted in ROS Statement are negative. Constitutional: Denies: fever, chills Respiratory: Denies: cough, dyspnea, wheezes Cardiovascular: Denies: chest pain, palpitations, dyspnea on exertion Gastrointestinal: Reports: melena. Denies: abdominal pain, nausea, vomiting, constipation, hematemesis Past Medical History Past Medical History: Asthma, CVA/TIA, Fibromyalgia, GERD/Reflux, Hyperlipidemia, Musculoskeletal Disorder, Osteoarthritis (OA), Thyroid Disorder Additional Past Medical History / Comment(s): migraines, sarcoidosis, hearburn, hx diverticulosis/gastritis/esophagitis, essential tremors-slight tremor left hand, parkinsons, carpal tunnel,"stroke when i was in my 20's when i was on control-affected non dominant side (lt) ."my whole left side feels numb under the skin", chronic back pain, sciatic nerve pain. pt stated -had a pne vaccine 2-3 years ago but not srue of date. History of Any Multi-Drug Resistant Organisms: None Reported Past Surgical History: Appendectomy, Bariatric Surgery, Bowel Resection, Cholecystectomy, Joint Replacement, Orthopedic Surgery Additional Past Surgical History / Comment(s): kenyatta knee replacement, left shoulder rotator cuff, lap band- then removed , gastric sleeve Past Anesthesia/Blood Transfusion Reactions: No Reported Reaction Additional Past Anesthesia/Blood Transfusion Reaction / Comment(s): clausterphobia Past Psychological History: Anxiety - Past Family History Mother Family Medical History: Cancer Additional Family Medical History / Comment(s): GALLBLADDER CA Father Family Medical History: Cancer Additional Family Medical History / Comment(s): THROAT/ESOPHAGEAL CA Sister(s) Family Medical History: Cancer Additional Family Medical History / Comment(s): OVARIAN CA Brother(s) Family Medical History: No Reported History (Patient has one brother no major medical problems.) Son(s) Family Medical History: No Reported History (Patient has 3 sons one of them with irritable bowel syndrome) Course Vital Signs 07/21/19 07/21/19 07/21/19 21:15 22:29 23:17 Temperature 98 F Pulse Rate 70 89 84 Respiratory 18 20 18 Rate Blood Pressure 123/112 113/47 100/83 O2 Sat by Pulse 95 99 99 Oximetry 07/22/19 07/22/19 00:46 01:13 Temperature 99.7 F H Pulse Rate 92 93 Respiratory 18 18 Rate Blood Pressure 127/75 125/81 O2 Sat by Pulse 99 99 Oximetry - Reevaluation(s) Reevaluation #1: 07/21/19 22:[address] Boudreaux and his treatment recommendations are incorporated. Reevaluation #2: 07/21/19 22:[address] Metcalf, for admission and his recommendations are incorporated. Medical Decision Making - Lab Data Result diagrams: 07/22/19 02:56 07/22/19 02:56 Lab Results 07/21/19 07/21/19 07/21/19 Range/Units 21:32 21:32 21:32 WBC 14.4 H (3.8-10.6) k/uL RBC 3.39 L (3.80-5.40) m/uL Hgb 9.8 L (11.4-16.0) gm/dL Hct 30.5 L (34.0-46.0) % MCV 89.8 (80.0-100.0) fL MCH 28.9 (25.0-35.0) pg MCHC 32.2 (31.0-37.0) g/dL RDW 14.3 (11.5-15.5) % Plt Count 377 (150-450) k/uL Neutrophils % 72 % Lymphocytes % 22 % Monocytes % 4 % Eosinophils % 0 % Basophils % 0 % Neutrophils # 10.3 H (1.3-7.7) k/uL Lymphocytes # 3.2 (1.0-4.8) k/uL Monocytes # 0.5 (0-1.0) k/uL Eosinophils # 0.0 (0-0.7) k/uL Basophils # 0.0 (0-0.2) k/uL PT (9.0-12.0) sec INR (<1.2) APTT (22.0-30.0) sec Sodium 136 L (137-145) mmol/L Potassium 4.6 (3.5-5.1) mmol/L Chloride 101 (98-107) mmol/L Carbon Dioxide 28 (22-30) mmol/L Anion Gap 7 mmol/L BUN 18 H (7-17) mg/dL Creatinine 0.75 (0.52-1.04) mg/dL Est GFR (CKD-EPI)AfAm >90 (>60 ml/min/1.73 sqM) Est GFR (CKD-EPI)NonAf 82 (>60 ml/min/1.73 sqM) Glucose 194 H (74-99) mg/dL Lactic Ac Sepsis Rflx Plasma Lactic Acid Dominguez 3.7 H* (0.7-2.0) mmol/L Calcium 8.6 (8.4-10.2) mg/dL Total Bilirubin 0.2 (0.2-1.3) mg/dL AST 23 (14-36) U/L ALT 21 (9-52) U/L Alkaline Phosphatase 91 (38-126) U/L Troponin I (0.000-0.034) ng/mL Total Protein 5.7 L (6.3-8.2) g/dL Albumin 3.1 L (3.5-5.0) g/dL Urine Color Urine Appearance (Clear) Urine pH (5.0-8.0) Ur Specific [place] (1.001-1.035) Urine Protein (Negative) Urine Glucose (UA) (Negative) Urine Ketones (Negative) Urine Blood (Negative) Urine Nitrite (Negative) Urine Bilirubin (Negative) Urine Urobilinogen (<2.0) mg/dL Ur Leukocyte Esterase (Negative) Urine RBC (0-5) /hpf Urine WBC (0-5) /hpf Ur Squamous Epith Cells (0-4) /hpf Hyaline Casts (0-2) /lpf Urine Mucus (None) /hpf Blood Type Blood Type Confirm Blood Type Recheck Bld Type Recheck Status Antibody Screen Spec Expiration Date 07/21/19 07/21/19 07/21/19 Range/Units 21:32 21:32 21:32 WBC (3.8-10.6) k/uL RBC (3.80-5.40) m/uL Hgb (11.4-16.0) gm/dL Hct (34.0-46.0) % MCV (80.0-100.0) fL MCH (25.0-35.0) pg MCHC (31.0-37.0) g/dL RDW (11.5-15.5) % Plt Count (150-450) k/uL Neutrophils % % Lymphocytes % % Monocytes % % Eosinophils % % Basophils % % Neutrophils # (1.3-7.7) k/uL Lymphocytes # (1.0-4.8) k/uL Monocytes # (0-1.0) k/uL Eosinophils # (0-0.7) k/uL Basophils # (0-0.2) k/uL PT (9.0-12.0) sec INR (<1.2) APTT 22.6 (22.0-30.0) sec Sodium (137-145) mmol/L Potassium (3.5-5.1) mmol/L Chloride (98-107) mmol/L Carbon Dioxide (22-30) mmol/L Anion Gap mmol/L BUN (7-17) mg/dL Creatinine (0.52-1.04) mg/dL Est GFR (CKD-EPI)AfAm (>60 ml/min/1.73 sqM) Est GFR (CKD-EPI)NonAf (>60 ml/min/1.73 sqM) Glucose (74-99) mg/dL Lactic Ac Sepsis Rflx Plasma Lactic Acid Dominguez (0.7-2.0) mmol/L Calcium (8.4-10.2) mg/dL Total Bilirubin (0.2-1.3) mg/dL AST (14-36) U/L ALT (9-52) U/L Alkaline Phosphatase (38-126) U/L Troponin I 0.063 H* (0.000-0.034) ng/mL Total Protein (6.3-8.2) g/dL Albumin (3.5-5.0) g/dL Urine Color Urine Appearance (Clear) Urine pH (5.0-8.0) Ur Specific [place] (1.001-1.035) Urine Protein (Negative) Urine Glucose (UA) (Negative) Urine Ketones (Negative) Urine Blood (Negative) Urine Nitrite (Negative) Urine Bilirubin (Negative) Urine Urobilinogen (<2.0) mg/dL Ur Leukocyte Esterase (Negative) Urine RBC (0-5) /hpf Urine WBC (0-5) /hpf Ur Squamous Epith Cells (0-4) /hpf Hyaline Casts (0-2) /lpf Urine Mucus (None) /hpf Blood Type O Positive Blood Type Confirm Blood Type Recheck No Previous Record Bld Type Recheck Status CABO Indicated Antibody Screen NEGATIVE Spec Expiration Date 07/24/2019233107/21/19 07/21/19 07/21/19 Range/Units 21:32 22:05 22:59 WBC (3.8-10.6) k/uL RBC (3.80-5.40) m/uL Hgb (11.4-16.0) gm/dL Hct (34.0-46.0) % MCV (80.0-100.0) fL MCH (25.0-35.0) pg MCHC (31.0-37.0) g/dL RDW (11.5-15.5) % Plt Count (150-450) k/uL Neutrophils % % Lymphocytes % % Monocytes % % Eosinophils % % Basophils % % Neutrophils # (1.3-7.7) k/uL Lymphocytes # (1.0-4.8) k/uL Monocytes # (0-1.0) k/uL Eosinophils # (0-0.7) k/uL Basophils # (0-0.2) k/uL PT 11.3 (9.0-12.0) sec INR 1.1 (<1.2) APTT (22.0-30.0) sec Sodium (137-145) mmol/L Potassium (3.5-5.1) mmol/L Chloride (98-107) mmol/L Carbon Dioxide (22-30) mmol/L Anion Gap mmol/L BUN (7-17) mg/dL Creatinine (0.52-1.04) mg/dL Est GFR (CKD-EPI)AfAm (>60 ml/min/1.73 sqM) Est GFR (CKD-EPI)NonAf (>60 ml/min/1.73 sqM) Glucose (74-99) mg/dL Lactic Ac Sepsis Rflx Y Plasma Lactic Acid Dominguez (0.7-2.0) mmol/L Calcium (8.4-10.2) mg/dL Total Bilirubin (0.2-1.3) mg/dL AST (14-36) U/L ALT (9-52) U/L Alkaline Phosphatase (38-126) U/L Troponin I (0.000-0.034) ng/mL Total Protein (6.3-8.2) g/dL Albumin (3.5-5.0) g/dL Urine Color Urine Appearance (Clear) Urine pH (5.0-8.0) Ur Specific [place] (1.001-1.035) Urine Protein (Negative) Urine Glucose (UA) (Negative) Urine Ketones (Negative) Urine Blood (Negative) Urine Nitrite (Negative) Urine Bilirubin (Negative) Urine Urobilinogen (<2.0) mg/dL Ur Leukocyte Esterase (Negative) Urine RBC (0-5) /hpf Urine WBC (0-5) /hpf Ur Squamous Epith Cells (0-4) /hpf Hyaline Casts (0-2) /lpf Urine Mucus (None) /hpf Blood Type Blood Type Confirm O Positive Blood Type Recheck Bld Type Recheck Status Antibody Screen Spec Expiration Date 07/21/19 Range/Units 23:13 WBC (3.8-10.6) k/uL RBC (3.80-5.40) m/uL Hgb (11.4-16.0) gm/dL Hct (34.0-46.0) % MCV (80.0-100.0) fL MCH (25.0-35.0) pg MCHC (31.0-37.0) g/dL RDW (11.5-15.5) % Plt Count (150-450) k/uL Neutrophils % % Lymphocytes % % Monocytes % % Eosinophils % % Basophils % % Neutrophils # (1.3-7.7) k/uL Lymphocytes # (1.0-4.8) k/uL Monocytes # (0-1.0) k/uL Eosinophils # (0-0.7) k/uL Basophils # (0-0.2) k/uL PT (9.0-12.0) sec INR (<1.2) APTT (22.0-30.0) sec Sodium (137-145) mmol/L Potassium (3.5-5.1) mmol/L Chloride (98-107) mmol/L Carbon Dioxide (22-30) mmol/L Anion Gap mmol/L BUN (7-17) mg/dL Creatinine (0.52-1.04) mg/dL Est GFR (CKD-EPI)AfAm (>60 ml/min/1.73 sqM) Est GFR (CKD-EPI)NonAf (>60 ml/min/1.73 sqM) Glucose (74-99) mg/dL Lactic Ac Sepsis Rflx Plasma Lactic Acid Dom[place] (0.7-2.0) mmol/L Calcium (8.4-10.2) mg/dL Total Bilirubin (0.2-1.3) mg/dL AST (14-36) U/L ALT (9-52) U/L Alkaline Phosphatase (38-126) U/L Troponin I (0.000-0.034) ng/mL Total Protein (6.3-8.2) g/dL Albumin (3.5-5.0) g/dL Urine Color Yellow Urine Appearance Clear (Clear) Urine pH 6.0 (5.0-8.0) Ur Specific [place] 1.031 (1.001-1.035) Urine Protein 2+ H (Negative) Urine Glucose (UA) Negative (Negative) Urine Ketones Negative (Negative) Urine Blood Negative (Negative) Urine Nitrite Negative (Negative) Urine Bilirubin Negative (Negative) Urine Urobilinogen 2.0 (<2.0) mg/dL Ur Leukocyte Esterase Trace H (Negative) Urine RBC 2 (0-5) /hpf Urine WBC 4 (0-5) /hpf Ur Squamous Epith Cells 1 (0-4) /hpf Hyaline Casts 4 H (0-2) /lpf Urine Mucus Many H (None) /hpf Blood Type Blood Type Confirm Blood Type Recheck Bld Type Recheck Status Antibody Screen Spec Expiration Date - EKG Data -: EKG Interpreted by Me EKG shows normal: sinus rhythm, axis (Normal), intervals (Normal), QRS complexes (Normal), ST-T waves (Normal) Rate: normal (Rate 86 bpm) Interpretation: other (Possible old anterior infarct.) Critical Care Time Critical Care Time: Yes (35 minutes) Disposition Clinical Impression: Melena, Anemia Disposition: ADMITTED IP TO THIS HOSP Condition: Critical Is patient prescribed a controlled substance at d/c from ED?: No
[2019-07-21] MEDS ORDERED: PANTOPRAZOLE 40 MG/10 ML VIAL IVP STA (21:23)
[2019-07-21] MEDS ORDERED: TRANEXAMIC ACID 1,000 MG in SODIUM CHLORIDE 0.9% 100 ML IVPB ONE (21:24)
[2019-07-21 21:56] LABS: Basophils % (A) 0 %; Eosinophils % (A) 0 %; HCT 30.5 % (34.0-46.0); HGB 9.8 gm/dL (11.4-16.0); Lymphocytes # (A) 3.2 k/uL (1.0-4.8); Lymphocytes % (A) 22 %; MCH 28.9 pg (25.0-35.0); MCHC 32.2 g/dL (31.0-37.0); MCV 89.8 fL (80.0-100.0); Monocytes # (A) 0.5 k/uL (0-1.0); Monocytes % (A) 4 %; Neutrophils # (A) 10.3 k/uL (1.3-7.7); Neutrophils % (A) 72 %; Platelet Count 377 k/uL (150-450); RBC 3.39 m/uL (3.80-5.40); RDW 14.3 % (11.5-15.5); WBC 14.4 k/uL (3.8-10.6)
[2019-07-21 22:02] LABS: ALT 21 U/L (9-52); AST 23 U/L (14-36); African American GFR (CKD) >90 (>60 ml/min/1.73 sqM); Albumin 3.1 g/dL (3.5-5.0); Alkaline Phosphatase 91 U/L (38-126); Anion Gap 7 mmol/L; Blood Urea Nitrogen 18 mg/dL (7-17); Calcium 8.6 mg/dL (8.4-10.2); Carbon Dioxide 28 mmol/L (22-30); Chloride 101 mmol/L (98-107); Glucose 194 mg/dL (74-99); Potassium 4.6 mmol/L (3.5-5.1); Sodium 136 mmol/L (137-145); Total Bilirubin 0.2 mg/dL (0.2-1.3); Total Protein 5.7 g/dL (6.3-8.2)
[2019-07-21] MEDS ORDERED: SODIUM CHLORIDE 0.9% 500 ML 500 ML IV STA (22:39)
[2019-07-21] MEDS ORDERED: SODIUM CHLORIDE 0.9% 1,000 ML IV ONE (22:39)
[2019-07-21] MEDS ORDERED: NALOXONE 0.4 MG/ML 1 ML VIAL IV PRN (23:07)
[2019-07-21] MEDS ORDERED: SODIUM CHLORIDE 0.9% 1,000 ML IV STA (23:11)
[2019-07-21 23:23] LABS: Appearance,Urine Clear (Clear); Bilirubin,Urine Negative (Negative); Blood,Urine Negative (Negative); Color,Urine Yellow; Glucose,Urine (UA) Negative (Negative); Hyaline Casts,Urine 4 /lpf (0-2); Ketones,Urine Negative (Negative); Leukocyte Esterase,Urine Trace (Negative); Mucus,Urine Many /hpf; Nitrite,Urine Negative (Negative); Protein,Urine 2+ (Negative); RBC,Urine 2 /hpf (0-5); Specific Gravity,Urine 1.031 (1.001-1.035); Squamous Epithelial Cell,Urine 1 /hpf (0-4)
[2019-07-22 00:33] LABS: INR 1.1 (<1.2); Prothrombin Time 11.3 sec (9.0-12.0)
[2019-07-22 01:37] LABS: Glucose,Whole Blood 175 mg/dL (75-99)
[2019-07-22 03:20] LABS: Basophils % (A) 0 %; Eosinophils % (A) 0 %; HCT 26.2 % (34.0-46.0); HGB 8.5 gm/dL (11.4-16.0); Lymphocytes % (A) 18 %; MCH 29.1 pg (25.0-35.0); MCHC 32.4 g/dL (31.0-37.0); MCV 89.7 fL (80.0-100.0); Mean Platelet Volume 5.9; Monocytes # (A) 0.3 k/uL (0-1.0); Monocytes % (A) 3 %; Neutrophils % (A) 78 %; Platelet Count 315 k/uL (150-450); RBC 2.92 m/uL (3.80-5.40); RDW 14.4 % (11.5-15.5); WBC 11.5 k/uL (3.8-10.6)
[2019-07-22 03:32] LABS: ALT 27 U/L (9-52); AST 20 U/L (14-36); African American GFR (CKD) >90 (>60 ml/min/1.73 sqM); Albumin 2.7 g/dL (3.5-5.0); Alkaline Phosphatase 80 U/L (38-126); Anion Gap 4 mmol/L; Blood Urea Nitrogen 18 mg/dL (7-17); Calcium 7.9 mg/dL (8.4-10.2); Carbon Dioxide 28 mmol/L (22-30); Chloride 105 mmol/L (98-107); Glucose 152 mg/dL (74-99); Potassium 4.9 mmol/L (3.5-5.1); Sodium 137 mmol/L (137-145); Total Bilirubin 0.2 mg/dL (0.2-1.3); Total Protein 5.1 g/dL (6.3-8.2)
[2019-07-22] MEDS: LEVOTHYROXINE 75 MCG TAB PO SCH (07:09)
[2019-07-22 07:47] LABS: HCT 24.3 % (34.0-46.0); HGB 7.9 gm/dL (11.4-16.0); MCH 29.5 pg (25.0-35.0); MCHC 32.7 g/dL (31.0-37.0); MCV 90.3 fL (80.0-100.0); Mean Platelet Volume 5.8; Platelet Count 308 k/uL (150-450); RBC 2.69 m/uL (3.80-5.40); RDW 14.6 % (11.5-15.5); WBC 10.3 k/uL (3.8-10.6)
--- NOTE | 2019-07-22 08:47 | P.GSCN ---
History of Present Illness Consult date: 07/22/19 Reason for Consult: GI bleed Requesting physician: Rd Hartman History of present illness: CHIEF COMPLAINT: GI bleed HISTORY OF PRESENT ILLNESS: 68 year old female who presented to the ER with a chief complaint of rectal bleeding. Patient reports she began having dark tarry stools about two days ago. She states her stools are almost black in the morning and they do lighten up as the day goes on. She reports feeling dizzy over the past few days and having a couple episodes of syncope. She denies abdominal pain. Reports nauseous prior to hospitalization. Denies emesis. Currently denies nausea. Denies fever or chills. She denies use of anticoagulation. Denies use of aspirin, aleve, motrin, etc. However, she does report a headache a few days this week and did take Excedrin Migraine after her Fioricet did not help her headache. PAST MEDICAL HISTORY: See list. PAST SURGICAL HISTORY: See list. SOCIAL HISTORY: No illicit drug use. REVIEW OF SYSTEMS: CONSTITUTIONAL: Denies fever or chills. HEENT: Denies blurred vision, vision changes, or eye pain. Denies hemoptysis CARDIOVASCULAR: Denies chest pain or pressure. RESPIRATORY: No shortness of breath. GASTROINTESTINAL: Refer to HPI for pertinent findings HEMATOLOGIC: Denies bleeding disorders. GENITOURINARY: Denies any blood in urine. SKIN: Denies pruitis. Denies rash. PHYSICAL EXAM: VITAL SIGNS: Reviewed. GENERAL: Well-developed in no acute distress. HEENT: No sclera icterus. Extraocular movements grossly intact. Moist buccal mucosa. Head is atraumatic, normocephalic. ABDOMEN: Soft. Nondistended. Nontender. NEUROLOGIC: Alert and oriented. Cranial nerves II through XII grossly intact. LABORATORY DATA: Hemoglobin on admission 8.5. Repeat 7.9. ASSESSMENT: 1. GI Bleed 2. Acute blood loss anemia 3. History of bowel resection, 2003 4. History of gastric lap band with subsequent revision to sleeve gastrectomy PLAN: 1. NPO 2. Continue IV fluids 3. Monitor hemoglobin. Transfer for hemoglobin less than 7.0 4. Patient to undergo EGD today with Dr. Boudreaux. Pending results, patient may require bowel prep and colonoscopy. Nurse practitioner note has been reviewed by physician. Signing provider agrees with the documented findings, assessment, and plan of care. 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 pt stated -had a pne vaccine 2-3 years ago but not srue of date. History of Any Multi-Drug Resistant Organisms: None Reported Past Surgical History: Appendectomy, Bariatric Surgery, Bowel Resection, Cholecystectomy, Joint Replacement, Orthopedic Surgery Additional Past Surgical History / Comment(s): kenyatta knee replacement, left shoulder rotator cuff, lap band- then removed , gastric sleeve Past Anesthesia/Blood Transfusion Reactions: No Reported Reaction Additional Past Anesthesia/Blood Transfusion Reaction / Comm: clausterphobia Past Psychological History: Anxiety - Past Family History Mother Family Medical History: Cancer Additional Family Medical History / Comment(s): GALLBLADDER CA Father Family Medical History: Cancer Additional Family Medical History / Comment(s): THROAT/ESOPHAGEAL CA Sister(s) Family Medical History: Cancer Additional Family Medical History / Comment(s): OVARIAN CA Brother(s) Family Medical History: No Reported History (Patient has one brother no major medical problems.) Son(s) Family Medical History: No Reported History (Patient has 3 sons one of them with irritable bowel syndrome) Medications and Allergies Home Medications Medication Instructions Recorded Confirmed Type ALPRAZolam [Xanax] 1 mg PO TID PRN 12/20/15 07/21/19 History Cholecalciferol [Vitamin D3 (25 5,000 unit PO HS 12/20/15 07/21/19 History Mcg = 1000 Iu)] Cyanocobalamin (Vitamin B-12) 5,000 mcg SUBLINGUAL DAILY 12/20/15 07/21/19 History [Vitamin B-12] Levothyroxine Sodium [Synthroid] 75 mcg PO DAILY 12/20/15 07/21/19 History Loratadine [Claritin] 10 mg PO DAILY 12/20/15 07/21/19 History Multivitamins, Thera [Multivitamin 1 tab PO DAILY 12/20/15 07/21/19 History (formulary)] Etodolac [Lodine XR] 600 mg PO BID 12/22/16 07/21/19 History Pregabalin [Lyrica] 75 mg PO HS 12/22/16 07/21/19 History Butalb/APAP/Caff 50-325-40Mg 1 - 2 tab PO DAILY PRN 02/10/19 07/21/19 History [Fioricet 50-325-40] DULoxetine HCL [Cymbalta] 60 mg PO HS 02/10/19 07/21/19 History Ferrous Sulfate [Feosol] 325 mg PO DAILY 02/10/19 07/21/19 History Furosemide [Lasix] 20 mg PO DAILY 02/10/19 07/21/19 History Omeprazole [PriLOSEC] 20 mg PO AC-BID 02/10/19 07/21/19 History Allergies Allergy/AdvReac Type Severity Reaction Status Date / Time fluticasone propionate AdvReac Rapid Verified 07/21/19 22:02 [From Advair Diskus] Heart Rate prednisone AdvReac Rapid Verified 07/21/19 22:02 Heart Rate salmeterol xinafoate AdvReac Rapid Verified 07/21/19 22:02 [From Advair Diskus] Heart Rate Sulfa (Sulfonamide AdvReac Nausea & Verified 07/21/19 22:02 Antibiotics) Vomiting Surgical - Exam Vital Signs Temp Pulse Resp BP Pulse Ox 98 F 70 18 123/112 95 07/21/19 21:15 07/21/19 21:15 07/21/19 21:15 07/21/19 21:15 07/21/19 21:15 Results - Labs 07/22/19 07:28 07/22/19 02:56 Abnormal Lab Results - Last 24 Hours (Table) 07/21/19 07/21/19 07/21/19 Range/Units 21:32 21:32 21:32 WBC 14.4 H (3.8-10.6) k/uL RBC 3.39 L (3.80-5.40) m/uL Hgb 9.8 L (11.4-16.0) gm/dL Hct 30.5 L (34.0-46.0) % Neutrophils # 10.3 H (1.3-7.7) k/uL Sodium 136 L (137-145) mmol/L BUN 18 H (7-17) mg/dL Glucose 194 H (74-99) mg/dL POC Glucose (mg/dL) (75-99) mg/dL Plasma Lactic Acid [place] 3.7 H* (0.7-2.0) mmol/L Calcium (8.4-10.2) mg/dL Troponin I (0.000-0.034) ng/mL Total Protein 5.7 L (6.3-8.2) g/dL Albumin 3.1 L (3.5-5.0) g/dL Urine Protein (Negative) Ur Leukocyte Esterase (Negative) Hyaline Casts (0-2) /lpf Urine Mucus (None) /hpf 07/21/19 07/21/19 07/22/19 Range/Units 21:32 23:13 01:35 WBC (3.8-10.6) k/uL RBC (3.80-5.40) m/uL Hgb (11.4-16.0) gm/dL Hct (34.0-46.0) % Neutrophils # (1.3-7.7) k/uL Sodium (137-145) mmol/L BUN (7-17) mg/dL Glucose (74-99) mg/dL POC Glucose (mg/dL) 175 H (75-99) mg/dL Plasma Lactic Acid [place] (0.7-2.0) mmol/L Calcium (8.4-10.2) mg/dL Troponin I 0.063 H* (0.000-0.034) ng/mL Total Protein (6.3-8.2) g/dL Albumin (3.5-5.0) g/dL Urine Protein 2+ H (Negative) Ur Leukocyte Esterase Trace H (Negative) Hyaline Casts 4 H (0-2) /lpf Urine Mucus Many H (None) /hpf 07/22/19 07/22/19 07/22/19 Range/Units 02:56 02:56 02:56 WBC 11.5 H (3.8-10.6) k/uL RBC 2.92 L (3.80-5.40) m/uL Hgb 8.5 L (11.4-16.0) gm/dL Hct 26.2 L (34.0-46.0) % Neutrophils # 9.0 H (1.3-7.7) k/uL Sodium (137-145) mmol/L BUN 18 H (7-17) mg/dL Glucose 152 H (74-99) mg/dL POC Glucose (mg/dL) (75-99) mg/dL Plasma Lactic Acid [place] (0.7-2.0) mmol/L Calcium 7.9 L (8.4-10.2) mg/dL Troponin I 0.108 H* (0.000-0.034) ng/mL Total Protein 5.1 L (6.3-8.2) g/dL Albumin 2.7 L (3.5-5.0) g/dL Urine Protein (Negative) Ur Leukocyte Esterase (Negative) Hyaline Casts (0-2) /lpf Urine Mucus (None) /hpf 07/22/19 Range/Units 07:28 WBC (3.8-10.6) k/uL RBC 2.69 L (3.80-5.40) m/uL Hgb 7.9 L (11.4-16.0) gm/dL Hct 24.3 L (34.0-46.0) % Neutrophils # (1.3-7.7) k/uL Sodium (137-145) mmol/L BUN (7-17) mg/dL Glucose (74-99) mg/dL POC Glucose (mg/dL) (75-99) mg/dL Plasma Lactic Acid [place] (0.7-2.0) mmol/L Calcium (8.4-10.2) mg/dL Troponin I (0.000-0.034) ng/mL Total Protein (6.3-8.2) g/dL Albumin (3.5-5.0) g/dL Urine Protein (Negative) Ur Leukocyte Esterase (Negative) Hyaline Casts (0-2) /lpf Urine Mucus (None) /hpf Diabetes panel 07/21/19 07/22/19 Range/Units 21:32 02:56 Sodium 136 L 137 (137-145) mmol/L Potassium 4.6 4.9 (3.5-5.1) mmol/L Chloride 101 105 (98-107) mmol/L Carbon Dioxide 28 28 (22-30) mmol/L BUN 18 H 18 H (7-17) mg/dL Creatinine 0.75 0.64 (0.52-1.04) mg/dL Glucose 194 H 152 H (74-99) mg/dL Calcium 8.6 7.9 L (8.4-10.2) mg/dL AST 23 20 (14-36) U/L ALT 21 27 (9-52) U/L Alkaline Phosphatase 91 80 (38-126) U/L Total Protein 5.7 L 5.1 L (6.3-8.2) g/dL Albumin 3.1 L 2.7 L (3.5-5.0) g/dL Calcium panel 07/21/19 07/22/19 Range/Units 21:32 02:56 Calcium 8.6 7.9 L (8.4-10.2) mg/dL Albumin 3.1 L 2.7 L (3.5-5.0) g/dL Pituitary panel 07/21/19 07/22/19 Range/Units 21:32 02:56 Sodium 136 L 137 (137-145) mmol/L Potassium 4.6 4.9 (3.5-5.1) mmol/L Chloride 101 105 (98-107) mmol/L Carbon Dioxide 28 28 (22-30) mmol/L BUN 18 H 18 H (7-17) mg/dL Creatinine 0.75 0.64 (0.52-1.04) mg/dL Glucose 194 H 152 H (74-99) mg/dL Calcium 8.6 7.9 L (8.4-10.2) mg/dL Adrenal panel 07/21/19 07/22/19 Range/Units 21:32 02:56 Sodium 136 L 137 (137-145) mmol/L Potassium 4.6 4.9 (3.5-5.1) mmol/L Chloride 101 105 (98-107) mmol/L Carbon Dioxide 28 28 (22-30) mmol/L BUN 18 H 18 H (7-17) mg/dL Creatinine 0.75 0.64 (0.52-1.04) mg/dL Glucose 194 H 152 H (74-99) mg/dL Calcium 8.6 7.9 L (8.4-10.2) mg/dL Total Bilirubin 0.2 0.2 (0.2-1.3) mg/dL AST 23 20 (14-36) U/L ALT 21 27 (9-52) U/L Alkaline Phosphatase 91 80 (38-126) U/L Total Protein 5.7 L 5.1 L (6.3-8.2) g/dL Albumin 3.1 L 2.7 L (3.5-5.0) g/dL
[2019-07-22] MEDS ORDERED: PANTOPRAZOLE 40 MG/10 ML VIAL IV SCH (09:00)
[2019-07-22] MEDS: ALPRAZolam 1 MG TAB PO PRN ×3 (09:48→21:10)
[2019-07-22] MEDS: METOPROLOL TARTRATE 25 MG TAB PO SCH ×3 (09:48→21:10)
--- NOTE | 2019-07-22 10:29 | CONS ---
CONSULTATION PULMONARY/CRITICAL CARE CONSULTATION: DATE OF CONSULTATION: July 22, 2019 This is a 68-year-old female who apparently presented to the emergency room, brought in by EMS. She apparently was passing dark tarry stools, maroon stools and bright red blood from her rectum. She was essentially evaluated in the emergency room for GI bleed. She had at least 10 or 12 bowel movements apparently prior to coming into the emergency room. She denied any episodes of vomiting. She was having some mild diffuse abdominal tenderness. No fever or chills. No shortness of breath. No chest pain. The patient was seen to have a hemoglobin initially of 9.8, which dropped down 8.5 after 1.5 L of fluid. I was called from the ER. We admitted here to the ICU for observation. Currently, she is on O2 at 2 L/minute by nasal cannula and a saline IV at 100 mL an hour. She actually was admitted prior to midnight. She has received no blood or blood products at this time. She did have a prior history of some GI bleed in the past. It did not require any particular treatment. HOME MEDICATIONS: Her home medications include Xanax, vitamin D3, vitamin B12, Synthroid, loratadine, multivitamins, Lodine, Lyrica, Fioricet, Cymbalta, iron, Lasix, Prilosec. ALLERGIES: Her allergies include ADVAIR DISKUS, PREDNISONE and SULFA ANTIBIOTICS. MEDICAL HISTORY: Her medical history includes chronic bronchial asthma, CVA, fibromyalgia, GERD, hyperlipidemia, hypothyroidism, DJD, and possible sarcoidosis. She also has a history of migraine cephalgia as well as diverticular disease along with gastritis and esophagitis. She has essential tremors, Parkinson disease, carpal tunnel syndrome, and a previous CVA when she was quite young. She also suffers from chronic back pain and sciatic neuralgia. SURGICAL HISTORY: Surgical history includes appendectomy, bariatric procedures including a lap band procedure and subsequent gastric sleeve, bowel resection, cholecystectomy, joint replacement including bilateral knee replacement, left rotator cuff surgery, and other orthopedic procedures. SOCIAL HISTORY: Social history is negative for tobacco use. She denies any significant alcohol use or illicit drug use. FAMILY HISTORY: Family history is positive for mother with gallbladder cancer. father with throat esophageal cancer, a sister with ovarian cancer and a brother with no major medical problems and a son with no major medical problems. REVIEW OF SYSTEMS: CONSTITUTIONAL: Negative. NEUROLOGIC: Negative. HEENT: Negative. CARDIOVASCULAR: Negative. PULMONARY: Negative. GI: Mild abdominal discomfort and lower GI bleed with black tarry stools, maroon stools and bright red bleeding. : Negative. RHEUMATOLOGIC: Negative. IMMUNOLOGIC: Negative. ENDOCRINOLOGIC: Negative. DERMATOLOGIC: Negative. PHYSICAL EXAMINATION: VITAL SIGNS: Current vital signs are reviewed. Temperature is 99.6, heart rate 104, respiratory rate 16, blood pressure 111/69, mean 83 and 2 L saturation 94%. GENERAL: Appears in no acute distress. HEENT: Examination is grossly unremarkable. Mucous membranes are moist. NECK: Supple. Full range of motion. No adenopathy or thyromegaly. Neck veins are flat. CARDIOVASCULAR: Examination reveals mild tachycardia. Heart rate right around 100. It is regular. Likely in sinus rhythm. S1, S2 normal. No murmur. LUNGS: Reveal clear breath sounds. No wheezes or rhonchi. No crackles. ABDOMEN: Soft. Bowel sounds are noted. She is mildly tender on palpation. Not a surgical belly by any means. EXTREMITIES: Are intact. No cyanosis, clubbing, or edema. SKIN: Without rash. NEUROLOGIC: Examination is brief but nonfocal. LABS: Labs are reviewed. White count 10.3, hemoglobin 7.9 down from 8.5, hematocrit 24.3, platelet count 308,000. Sodium, potassium, chloride, CO2 all normal. Anion gap normal. BUN and creatinine were 18 and 0.64. Her troponins were 0.108. Albumin 2.7. Urine looked relatively clean. No chest x-ray. EKG is reviewed. Surgery is seeing patient. ASSESSMENT: 1. Gastrointestinal bleed, probably lower gastrointestinal bleed and possibly related to her previous history of diverticular disease versus angiodysplasia. 2. History of asthma. 3. History of cerebrovascular accident. 4. Fibromyalgia. 5. Gastroesophageal reflux disease. 6. Hyperlipidemia. 7. Degenerative joint disease. 8. Hypothyroidism. 9. Migraine cephalgia. 10.Sarcoidosis. 11.Prior history of gastritis and esophagitis. 12.Essential tremor. 13.Previous history of cerebrovascular accident. 14.Parkinson disease. 15.Carpal tunnel syndrome. 16.Sciatic neuralgia. PLAN: Surgery has been called. Patient's hemoglobin will be monitored closely. Some of the drop in her hemoglobin may be delusional. No current active bleeding. No significant abdominal discomfort. Prognosis is guarded. We will continue to follow. Medications are reviewed. MMODL / IJN: [id number] /
--- NOTE | 2019-07-22 11:01 | ECHOF ---
Referral Reason:elevated troponins MEASUREMENTS -------- HEIGHT: 157.5 cm WEIGHT: 127.0 kg BP: 122/67 IVSd: 1.5 cm (0.6 - 1.1) LVIDd: 4.3 cm (3.9 - 5.3) LVPWd: 1.6 cm (0.6 - 1.1) IVSs: 1.7 cm LVIDs: 2.4 cm LVPWs: 2.0 cm LAESV Index (A-L): 13.93 ml/m Ao Diam: 2.9 cm (2.0 - 3.7) AV Cusp: 1.8 cm (1.5 - 2.6) LA Diam: 2.7 cm (2.7 - 3.8) MV EXCURSION: 14.230 mm (> 18.000) MV EF SLOPE: 54 mm/s (70 - 150) EPSS: 0.5 cm MV E John: 0.96 m/s MV DecT: 170 ms MV A John: 1.17 m/s MV E/A Ratio: 0.82 RAP: 5.00 mmHg RVSP: 17.74 mmHg TAPSE: 20.69 mm FINDINGS -------- Sinus rhythm. This was a technically good study. The left ventricular size is normal. There is moderate concentric left ventricular hypertrophy. O verall left ventricular systolic function is normal with, an EF between 55 - 60 %. Normal LAP Grade 1 Diastolic Dysfunction. The right ventricle is normal in size. The right ventricular systolic function is normal. The left atrial size is normal. Normal LA size by volume 22+/-6 ml/m2. The right atrial size is normal. The aortic valve is trileaflet and appears structurally normal. The mitral valve is normal. The mitral valve leaflets are mildly thickened. Mild mitral regurgita tion is present. The tricuspid valve appears structurally normal. Mild tricuspid regurgitation present. Right vent ricular systolic pressure is normal at < 35 mmHg. There is no pulmonic regurgitation present. The aortic root size is normal. Normal inferior vena cava with normal inspiratory collapse consistent with estimated right atrial pre ssure of 5 mmHg. All pulmonary veins appear normal. The flow patterns, measured by Doppler, appear normal. There is no pericardial effusion. CONCLUSIONS -------- 1. Sinus rhythm. 2. This was a technically good study. 3. The left ventricular size is normal. 4. There is moderate concentric left ventricular hypertrophy. 5. Overall left ventricular systolic function is normal with, an EF between 55 - 60 %. 6. Normal LAP Grade 1 Diastolic Dysfunction. 7. The right ventricle is normal in size. 8. The right ventricular systolic function is normal. 9. The left atrial size is normal. 10. Normal LA size by volume 22+/-6 ml/m2. 11. The right atrial size is normal. 12. The aortic valve is trileaflet and appears structurally normal. 13. The mitral valve is normal. 14. The mitral valve leaflets are mildly thickened. 15. Mild mitral regurgitation is present. 16. The tricuspid valve appears structurally normal. 17. Mild tricuspid regurgitation present. 18. Right ventricular systolic pressure is normal at < 35 mmHg. 19. There is no pulmonic regurgitation present. 20. The aortic root size is normal. 21. Normal inferior vena cava with normal inspiratory collapse consistent with estimated right atrial pressure of 5 mmHg. 22. All pulmonary veins appear normal. 23. The flow patterns, measured by Doppler, appear normal. 24. There is no pericardial effusion. DRILL RIG OPERATOR HELPER: Hanny Echevarria RDCS
[2019-07-22] MEDS ORDERED: LIDOCAINE 1% INJ 10MG/ML (20 ML MDV) ONE (11:23)
[2019-07-22] MEDS ORDERED: PROPOFOL 10 MG/ML 20 ML VIAL IV ONE (11:23)
[2019-07-22] MEDS ORDERED: IV FLUID CONTINUATION 1,000 ML IV ONE (11:23)
--- NOTE | 2019-07-22 11:42 | P.OP ---
Date of Procedure: 07/22/19 Preoperative Diagnosis: GI bleed Postoperative Diagnosis: GI bleed Procedure(s) Performed: EGD Anesthesia: MAC Surgeon: Rudolph Boudreaux Pathology: none sent Condition: stable Disposition: PACU Description of Procedure: The patient's placed on the endoscopy table lateral position. She received IV sedation. The gastroscope placed oropharynx passed in the esophagus and stomach. Scope then placed through the pylorus. The first and second portion of duodenum appeared normal there was no evidence of blood. Scope was then brought back and the antrum was normal. There is no evidence of any blood in the stomach or duodenum. There is no evidence of any peptic ulcer disease. There is no significant duodenitis. Scope was then brought back the patient a gastric sleeve. The gaseously. Mildly dilated. The GE junction was at 40 cm. The distal esophagus. PROXIMAL esophagus appeared normal scope was withdrawn. There is no evidence of any blood in the upper GI tract the patient will be scheduled for colonoscopy on Thursday.
[2019-07-22] MEDS: SODIUM CHLORIDE 0.9% 1,000 ML IV SCH (12:00)
--- NOTE | 2019-07-22 12:57 | P.HPIM ---
History of Present Illness H&P Date: 07/22/19 Chief Complaint: Acute GI bleed, acute blood loss anemia, tarry stool, hyper tension, hyperli 68-year-old female one of Dr. Jayleen Lloyd patient with the past medical history of CVA, asthma, fibromyalgia, hypertension, hyperlipidemia, Parkinson disease, history of sarcoidosis who began to have dark tarry stool 2 days. Admission her stool become almost black in the morning for admission with slight discomfort lower abdominal region area along with feeling lightheaded and dizziness with presyncope like symptom she had mild abdominal cramps with no abdominal pain felt nausea with no vomiting denies any emesis. Patient had no fever or chills symptoms become much worse ended up coming to the emergency room where was seen and evaluated her Hemoccult was positive rectal exam showed black stool patient apparently has been taking Excedrin Migraine and if Fioricet for headache. Hemoglobin was slightly bit low she did not require any blood transfusion but was admitted to the ICU will be seen in general surgery for Route possible upper scope and colonoscopy H&H will be done every 6 hours for now and transfuse blood if hemoglobin is below 8 especially if she is symptomatic. 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 pt stated -had a pne vaccine 2-3 years ago but not srue of date. History of Any Multi-Drug Resistant Organisms: None Reported Past Surgical History: Appendectomy, Bariatric Surgery, Bowel Resection, Cholecystectomy, Joint Replacement, Orthopedic Surgery Additional Past Surgical History / Comment(s): kenyatta knee replacement, left shoulder rotator cuff, lap band- then removed , gastric sleeve Past Anesthesia/Blood Transfusion Reactions: No Reported Reaction Additional Past Anesthesia/Blood Transfusion Reaction / Comment(s): clausterphobia Past Psychological History: Anxiety - Past Family History Mother Family Medical History: Cancer Additional Family Medical History / Comment(s): GALLBLADDER CA Father Family Medical History: Cancer Additional Family Medical History / Comment(s): THROAT/ESOPHAGEAL CA Sister(s) Family Medical History: Cancer Additional Family Medical History / Comment(s): OVARIAN CA Brother(s) Family Medical History: No Reported History (Patient has one brother no major medical problems.) Son(s) Family Medical History: No Reported History (Patient has 3 sons one of them with irritable bowel syndrome) Medications and Allergies Home Medications Medication Instructions Recorded Confirmed Type ALPRAZolam [Xanax] 1.5 mg PO BID 12/20/15 07/22/19 History Cholecalciferol [Vitamin D3 (25 5,000 unit PO HS 12/20/15 07/22/19 History Mcg = 1000 Iu)] Cyanocobalamin (Vitamin B-12) 5,000 mcg SUBLINGUAL DAILY 12/20/15 07/22/19 History [Vitamin B-12] Levothyroxine Sodium [Synthroid] 75 mcg PO DAILY 12/20/15 07/22/19 History Loratadine [Claritin] 10 mg PO DAILY 12/20/15 07/22/19 History Multivitamins, Thera [Multivitamin 1 tab PO DAILY 12/20/15 07/22/19 History (formulary)] Etodolac [Lodine XR] 600 mg PO BID 12/22/16 07/22/19 History Pregabalin [Lyrica] 75 mg PO HS 12/22/16 07/22/19 History Butalb/APAP/Caff 50-325-40Mg 1 - 2 tab PO DAILY PRN 02/10/19 07/22/19 History [Fioricet 50-325-40] DULoxetine HCL [Cymbalta] 60 mg PO HS 02/10/19 07/22/19 History Ferrous Sulfate [Feosol] 325 mg PO DAILY 02/10/19 07/22/19 History Furosemide [Lasix] 20 mg PO DAILY 02/10/19 07/22/19 History Omeprazole [PriLOSEC] 20 mg PO AC-BID 02/10/19 07/22/19 History Acetaminophen [Tylenol Arthritis] 1,300 mg PO BID 07/22/19 07/22/19 History Beclomethasone Dip 80 Mcg/Puff 1 puff INHALATION RT-BID 07/22/19 07/22/19 History [Qvar 80 mcg] DULoxetine HCL [Cymbalta] 30 mg PO DAILY 07/22/19 07/22/19 History Lidocaine Patch Unknown Dose 1 patch TOPICAL DAILY PRN 07/22/19 07/22/19 History Propylene Glycol/Peg 400/Pf 1 dropper BOTH EYES DAILY 07/22/19 07/22/19 History [Systane 0.3-0.4% Eye Drops] Turmeric Root Extract [Turmeric] 500 mg PO DAILY 07/22/19 07/22/19 History Zinc 50 mg PO DAILY 07/22/19 07/22/19 History traMADol HCL 50 mg PO TID 07/22/19 07/22/19 History Allergies Allergy/AdvReac Type Severity Reaction Status Date / Time fluticasone propionate AdvReac Rapid Verified 07/21/19 22:02 [From Advair Diskus] Heart Rate prednisone AdvReac Rapid Verified 07/21/19 22:02 Heart Rate salmeterol xinafoate AdvReac Rapid Verified 07/21/19 22:02 [From Advair Diskus] Heart Rate Sulfa (Sulfonamide AdvReac Nausea & Verified 07/21/19 22:02 Antibiotics) Vomiting Physical Exam Vitals: Vital Signs Temp Pulse Resp BP Pulse Ox 07/22/19 10:00 92 14 121/69 95 07/22/19 09:00 100 12 116/58 92 L 07/22/19 08:00 99.6 F 104 H 16 111/69 93 L 07/22/19 07:00 105 H 14 122/67 94 L 07/22/19 06:00 94 18 125/59 95 07/22/19 05:00 83 18 121/65 94 L 07/22/19 04:00 98.4 F 98 15 120/57 94 L 07/22/19 03:00 93 15 125/73 95 07/22/19 02:00 92 15 112/73 97 07/22/19 01:33 98.4 F 96 17 116/72 96 07/22/19 01:13 99.7 F H 93 18 125/81 99 07/22/19 00:46 92 18 127/75 99 07/21/19 23:17 84 18 100/83 99 07/21/19 22:29 89 20 113/47 99 07/21/19 21:15 98 F 70 18 123/112 95 Intake and Output 07/21/19 07/22/19 07/22/19 22:59 06:59 14:59 Intake Total 500 450 Output Total 385 245 Balance 115 205 Intake: IV 50 Intake, IV Titration 500 400 Amount Sodium Chloride 0.9% 1, 500 400 000 ml @ 100 mls/hr IV . Q10H STA Rx#:[id number] Output: Urine 385 245 Uretheral (Armas) 200 Other: Voiding Method Indwelling Catheter # Bowel Movements 1 Weight 127.006 kg Results CBC & Chem 7: 07/22/19 07:28 07/22/19 02:56 Labs: Abnormal Lab Results - Last 24 Hours (Table) 07/21/19 07/21/19 07/21/19 Range/Units 21:32 21:32 21:32 WBC 14.4 H (3.8-10.6) k/uL RBC 3.39 L (3.80-5.40) m/uL Hgb 9.8 L (11.4-16.0) gm/dL Hct 30.5 L (34.0-46.0) % Neutrophils # 10.3 H (1.3-7.7) k/uL Sodium 136 L (137-145) mmol/L BUN 18 H (7-17) mg/dL Glucose 194 H (74-99) mg/dL POC Glucose (mg/dL) (75-99) mg/dL Plasma Lactic Acid Dominguez 3.7 H* (0.7-2.0) mmol/L Calcium (8.4-10.2) mg/dL Troponin I (0.000-0.034) ng/mL Total Protein 5.7 L (6.3-8.2) g/dL Albumin 3.1 L (3.5-5.0) g/dL Urine Protein (Negative) Ur Leukocyte Esterase (Negative) Hyaline Casts (0-2) /lpf Urine Mucus (None) /hpf Stool Occult Blood (Negative) 07/21/19 07/21/19 07/22/19 Range/Units 21:32 23:13 01:35 WBC (3.8-10.6) k/uL RBC (3.80-5.40) m/uL Hgb (11.4-16.0) gm/dL Hct (34.0-46.0) % Neutrophils # (1.3-7.7) k/uL Sodium (137-145) mmol/L BUN (7-17) mg/dL Glucose (74-99) mg/dL POC Glucose (mg/dL) 175 H (75-99) mg/dL Plasma Lactic Acid Dominguez (0.7-2.0) mmol/L Calcium (8.4-10.2) mg/dL Troponin I 0.063 H* (0.000-0.034) ng/mL Total Protein (6.3-8.2) g/dL Albumin (3.5-5.0) g/dL Urine Protein 2+ H (Negative) Ur Leukocyte Esterase Trace H (Negative) Hyaline Casts 4 H (0-2) /lpf Urine Mucus Many H (None) /hpf Stool Occult Blood (Negative) 07/22/19 07/22/19 07/22/19 Range/Units 02:56 02:56 02:56 WBC 11.5 H (3.8-10.6) k/uL RBC 2.92 L (3.80-5.40) m/uL Hgb 8.5 L (11.4-16.0) gm/dL Hct 26.2 L (34.0-46.0) % Neutrophils # 9.0 H (1.3-7.7) k/uL Sodium (137-145) mmol/L BUN 18 H (7-17) mg/dL Glucose 152 H (74-99) mg/dL POC Glucose (mg/dL) (75-99) mg/dL Plasma Lactic Acid Dominguez (0.7-2.0) mmol/L Calcium 7.9 L (8.4-10.2) mg/dL Troponin I 0.108 H* (0.000-0.034) ng/mL Total Protein 5.1 L (6.3-8.2) g/dL Albumin 2.7 L (3.5-5.0) g/dL Urine Protein (Negative) Ur Leukocyte Esterase (Negative) Hyaline Casts (0-2) /lpf Urine Mucus (None) /hpf Stool Occult Blood (Negative) 07/22/19 07/22/19 07/22/19 Range/Units 07:28 08:05 09:10 WBC (3.8-10.6) k/uL RBC 2.69 L (3.80-5.40) m/uL Hgb 7.9 L (11.4-16.0) gm/dL Hct 24.3 L (34.0-46.0) % Neutrophils # (1.3-7.7) k/uL Sodium (137-145) mmol/L BUN (7-17) mg/dL Glucose (74-99) mg/dL POC Glucose (mg/dL) (75-99) mg/dL Plasma Lactic Acid Dominguez (0.7-2.0) mmol/L Calcium (8.4-10.2) mg/dL Troponin I 0.063 H* (0.000-0.034) ng/mL Total Protein (6.3-8.2) g/dL Albumin (3.5-5.0) g/dL Urine Protein (Negative) Ur Leukocyte Esterase (Negative) Hyaline Casts (0-2) /lpf Urine Mucus (None) /hpf Stool Occult Blood Positive H (Negative) Assessment and Plan Plan: 1 acute GI bleed: Most likely upper in origin specially with a tarry black stool a Chin be seen Dr. Boudreaux will be going for an EGD originally if no finding will be going for colonoscopy as a next step if still an active bleed might require red cell tag scan or further testing to see the bleeding if all negative patient can benefit from small bowel capsule endoscopy. 2 acute blood loss anemia: With significant drop in hemoglobin no need for transfusion so far with time and cross awaiting for transfusion if needed. 3 lightheadedness dizziness and presyncope: Secondary to acute blood loss anemia with bleeding and hypotension from volume loss continue supportive care watch for any further drop in hemoglobin. 4 hypothyroidism: Continue levothyroxine at 75 g daily. 5 chronic neuropathy: Has been on Lyrica 75 mg daily at bedtime. 6 fluid overload: Remain on furosemide which should be held for 24 hours. 7 chronic depression: Has been on Cymbalta 60 mg daily at bedtime. Continue alprazolam 1 as-needed basis. 8 history of sarcoidosis: Has been remission. 9 hyperlipidemia: On diet control. 10 elevated troponin with possible non-ST AL: Patient be seen cardiology her elevated troponin, be hypoperfusion from the severity of the bleeding. 11 hyperglycemia: Continue diet control continue Accu-Chek sliding scales coverage no need for any medication currently. CODE STATUS: Full code. GI prophylaxis: Patient be on pantoprazole IV. DVT prophylaxis: Venodyne boots and knee-high RELL hose no heparin or any anticoagulation with the bleed. Patient was hospitalized will be going for an EGD initially if negative she need a colonoscopy in the still negative might need small bowel capsule endoscopy and if more active acute bleed taking place watch his the hospital patient will require to go for red cell tag scan to see the area of bleeding and surgery to do an intervention if needed.
--- NOTE | 2019-07-22 13:35 | CONS ---
CONSULTATION Catia Falk is a 68-year-old lady who has been admitted to the ICU with complaints of abdominal discomfort, bloating, and also giuliano blood in the stool preceded by some melenic stools. Her hemoglobin was low and she appears to be having acute if not subacute GI bleed and I was asked to see her because of elevated troponins of 0.10 and 0.06. Her creatinine is normal. Electrolytes are normal. She is resting comfortably, has no active bleeding at the time of my evaluation. She remains hemodynamically stable. PAST MEDICAL HISTORY: This is remarkable for hypertension, hypothyroidism and also gastroesophageal reflux disease. The patient does not have any chest discomfort. Her main complaint was basically abdominal discomfort of a mild to moderate degree followed by melenic stools and then fresh giuliano blood. PAST MEDICAL HISTORY: This is remarkable for bronchial asthma previous history of TIA, gastroesophageal reflux disease, hypertension, hypothyroidism, osteoarthritis. She also has underlying hypertension. She is status post questionable Parkinson's, migraines, sarcoidosis. She also has some diverticulosis. She is status post bariatric surgery, appendectomy, bowel resection, cholecystectomy, and orthopedic surgery. MEDICATIONS: Medications at home include vitamin supplement, Synthroid 75 mcg daily, Lyrica, iron supplements, Lasix. ALLERGIES: She is allergic to ADVAIR INHALER and also SULFA. PHYSICAL EXAMINATION: On examination, blood pressure is 130/70, pulse rate is about 90 per minute, regular. HEENT: Unremarkable. Fundus was not examined by me. Neck is supple. There is no JVD. I do not hear a carotid bruit. Heart exam reveals S1, S2 heard normally. Short systolic murmur is audible. Lungs revealed decent air entry. Abdomen is soft. No significant tenderness. Lower extremities reveal diminished pulses. Central nervous system is grossly within normal limits. EKG revealed sinus mechanism, no acute changes. IMPRESSION: 1. Elevated troponin is noted, but I do not believe this represents any myocardial injury and especially in the setting of anemia with hemoglobin of about 7.9 I would not recommend any aggressive intervention. She is bleeding acutely if not subacutely. 2. Gastrointestinal bleeding, probably lower gastrointestinal bleeding. 3. Hypertension. 4. History of previous abdominal surgeries by Dr. Boudreaux. RECOMMENDATIONS: From a cardiac standpoint, I would recommend that we obtain echocardiogram to assess LV function. Place her on metoprolol tartrate 25 mg t.i.d. and check an additional hemoglobin now and seek surgical evaluation mainly for endoscopy. For elevated troponin, I would not do any intervention unless patient has any significant symptoms or elevation. Her low hemoglobin and relative hypoxia when she came in could be the cause of her elevated troponin. Thank you very much for the consult. LYUBOV / NICOLE: [id number] /
[2019-07-22] MEDS: FUROSEMIDE 20 MG TAB PO SCH (14:00)
[2019-07-22] MEDS: LORATADINE 10 MG TAB PO SCH (14:00)
[2019-07-22 16:14] LABS: Basophils % (A) 0 %; Eosinophils # (A) 0.1 k/uL (0-0.7); Eosinophils % (A) 1 %; HCT 24.4 % (34.0-46.0); HGB 7.6 gm/dL (11.4-16.0); Lymphocytes # (A) 1.9 k/uL (1.0-4.8); Lymphocytes % (A) 18 %; MCH 28.9 pg (25.0-35.0); MCHC 31.3 g/dL (31.0-37.0); MCV 92.3 fL (80.0-100.0); Mean Platelet Volume 6.6; Monocytes # (A) 0.5 k/uL (0-1.0); Monocytes % (A) 5 %; Neutrophils # (A) 7.9 k/uL (1.3-7.7); Neutrophils % (A) 75 %; Platelet Count 325 k/uL (150-450); RBC 2.64 m/uL (3.80-5.40); RDW 15.1 % (11.5-15.5); WBC 10.6 k/uL (3.8-10.6)
[2019-07-22] MEDS: ACETAMINOPHEN TAB 325 MG TAB PO PRN (16:26)
[2019-07-22 20:58] LABS: Basophils # (A) 0.1 k/uL (0-0.2); Basophils % (A) 1 %; Eosinophils # (A) 0.2 k/uL (0-0.7); Eosinophils % (A) 1 %; HCT 23.2 % (34.0-46.0); HGB 7.5 gm/dL (11.4-16.0); Hypochromasia Slight; Lymphocytes # (A) 2.9 k/uL (1.0-4.8); Lymphocytes % (A) 27 %; MCH 30.2 pg (25.0-35.0); MCHC 32.2 g/dL (31.0-37.0); MCV 93.8 fL (80.0-100.0); Mean Platelet Volume 7.1; Monocytes # (A) 0.4 k/uL (0-1.0); Monocytes % (A) 4 %; Neutrophils # (A) 6.8 k/uL (1.3-7.7); Neutrophils % (A) 65 %; Platelet Count 286 k/uL (150-450); RBC 2.48 m/uL (3.80-5.40); RDW 15.2 % (11.5-15.5); WBC 10.6 k/uL (3.8-10.6)
[2019-07-22] MEDS: DULoxetine HCL 60 MG CAPSULE.DR PO SCH (21:09)
[2019-07-22] MEDS: PREGABALIN 75 MG CAP PO SCH (21:10)
[2019-07-22] MEDS: PANTOPRAZOLE 40 MG/10 ML VIAL IVP SCH (21:11)
[2019-07-23] MEDS: SODIUM CHLORIDE 0.9% 1,000 ML IV SCH ×3 (03:00→19:07)
[2019-07-23 05:16] LABS: Basophils % (A) 0 %; Eosinophils % (A) 1 %; HCT 20.2 % (34.0-46.0); Lymphocytes # (A) 2.4 k/uL (1.0-4.8); Lymphocytes % (A) 28 %; MCHC 30.6 g/dL (31.0-37.0); MCV 91.4 fL (80.0-100.0); Mean Platelet Volume 6.3; Monocytes # (A) 0.5 k/uL (0-1.0); Monocytes % (A) 5 %; Neutrophils # (A) 5.3 k/uL (1.3-7.7); Neutrophils % (A) 63 %; Platelet Count 284 k/uL (150-450); RBC 2.21 m/uL (3.80-5.40); RDW 15.2 % (11.5-15.5); WBC 8.4 k/uL (3.8-10.6)
[2019-07-23 05:24] LABS: HGB 6.2 gm/dL (11.4-16.0)
[2019-07-23 05:29] LABS: African American GFR (CKD) >90 (>60 ml/min/1.73 sqM); Anion Gap 2 mmol/L; Blood Urea Nitrogen 17 mg/dL (7-17); Calcium 7.7 mg/dL (8.4-10.2); Carbon Dioxide 28 mmol/L (22-30); Chloride 107 mmol/L (98-107); Glucose 122 mg/dL (74-99); Potassium 3.7 mmol/L (3.5-5.1); Sodium 137 mmol/L (137-145)
--- NOTE | 2019-07-23 06:06 | XR ---
EXAMINATION TYPE: XR chest 1V portable DATE OF EXAM: 07/23/2019 HISTORY: SOB. REFERENCE: Previous study dated 01/26/2019. FINDINGS: The heart is mildly enlarged. The lungs are clear. Pleural spaces are clear. IMPRESSION: MILD CARDIOMEGALY.
[2019-07-23] MEDS: LEVOTHYROXINE 75 MCG TAB PO SCH (06:15)
[2019-07-23] MEDS ORDERED: Potassium Replacement Protocol 1 EACH MISC MISCELLANE PRN (06:58)
[2019-07-23] MEDS: PANTOPRAZOLE 40 MG/10 ML VIAL IVP SCH ×2 (07:52→22:06)
[2019-07-23] MEDS ORDERED: POTASSIUM CHLORIDE ER 20 MEQ TAB.ER PO SCH (08:00)
--- NOTE | 2019-07-23 08:12 | P.PN ---
Subjective Progress Note Date: 07/23/19 Principal diagnosis: Abnormal cardiac enzymes This is a pleasant 68-year-old female patient with a past medical history significant for hypertension as well as thyroid disorder was admitted to the hospital with abdominal discomfort and GI bleeding. She underwent an upper endoscopy which came in to be unremarkable and she is in process of having lower endoscopy. We involved in her care because of mildly abnormal cardiac enzymes. No history of coronary artery disease or congestive heart failure or cardiac arrhythmia. On follow-up with the patient this morning, she is anemic with a hemoglobin around 6. She is in process of getting blood. She has some mild chest discom fort which is probably related to her low hemoglobin. She is on metoprolol. We are holding any kind of antiplatelet at this point. She underwent an echocardiogram which revealed normal LV function without any significant valvular abnormalities. Objective - Vital Signs Vital signs: Vital Signs Temp 98.9 F 07/23/19 04:00 Pulse 73 07/23/19 07:00 Resp 15 07/23/19 07:00 BP 110/60 07/23/19 07:00 Pulse Ox 97 07/23/19 07:37 Intake & Output 07/22/19 07/23/19 07/23/19 18:59 06:59 18:59 Intake Total 1730 1450 100 Output Total 1165 635 45 Balance 565 815 55 Weight 133.1 kg Intake: IV 50 1100 100 Sodium Chloride 0.9% 1, 1100 100 000 ml @ 100 mls/hr IV . Q10H [facility] Rx#:[id number] Intake, IV Titration 1200 100 Amount Sodium Chloride 0.9% 1, 1200 100 000 ml @ 100 mls/hr IV . Q10H [facility] Rx#:[id number] Oral 480 250 Output: Urine 1165 635 45 Other: Voiding Method Indwelling Catheter Indwelling Catheter # Bowel Movements 1 - Constitutional General appearance: Present: no acute distress - Respiratory Respiratory: bilateral: CTA - Cardiovascular Rhythm: regular Heart sounds: normal: S1, S2 - Labs CBC & Chem 7: 07/23/19 04:53 07/23/19 04:53 Labs: Abnormal Lab Results - Last 24 Hours (Table) 07/21/19 07/22/19 07/22/19 Range/Units 21:32 08:05 09:10 RBC (3.80-5.40) m/uL Hgb (11.4-16.0) gm/dL Hct (34.0-46.0) % MCHC (31.0-37.0) g/dL Neutrophils # (1.3-7.7) k/uL Glucose (74-99) mg/dL Calcium (8.4-10.2) mg/dL Troponin I 0.063 H* (0.000-0.034) ng/mL Stool Occult Blood Positive H (Negative) Crossmatch See Detail 07/22/19 07/22/19 07/23/19 Range/Units 15:53 20:32 04:53 RBC 2.64 L 2.48 L 2.21 L (3.80-5.40) m/uL Hgb 7.6 L 7.5 L 6.2 L* (11.4-16.0) gm/dL Hct 24.4 L 23.2 L 20.2 L (34.0-46.0) % MCHC 30.6 L (31.0-37.0) g/dL Neutrophils # 7.9 H (1.3-7.7) k/uL Glucose (74-99) mg/dL Calcium (8.4-10.2) mg/dL Troponin I (0.000-0.034) ng/mL Stool Occult Blood (Negative) Crossmatch 07/23/19 Range/Units 04:53 RBC (3.80-5.40) m/uL Hgb (11.4-16.0) gm/dL Hct (34.0-46.0) % MCHC (31.0-37.0) g/dL Neutrophils # (1.3-7.7) k/uL Glucose 122 H (74-99) mg/dL Calcium 7.7 L (8.4-10.2) mg/dL Troponin I (0.000-0.034) ng/mL Stool Occult Blood (Negative) Crossmatch Microbiology - Last 24 Hours (Table) 07/21/19 22:59 Blood Culture - Preliminary Blood No Growth after 24 hours Assessment and Plan Assessment: Assessment #1 upper GI bleeding #2 blood loss anemia #3 mildly abnormal cardiac enzymes Plan #1 the abnormal troponin is likely related to the severe anemia #2 I would continue the current dose of metoprolol #3 hold any kind of antiplatelet at this point #4 follow-up with the patient
--- NOTE | 2019-07-23 08:21 | P.PN ---
Subjective Progress Note Date: 07/23/19 68-year-old female one of Dr. Jayleen Lloyd patient with the past medical history of CVA, asthma, fibromyalgia, hypertension, hyperlipidemia, Parkinson disease, history of sarcoidosis who began to have dark tarry stool 2 days. Admission her stool become almost black in the morning for admission with slight discomfort lower abdominal region area along with feeling lightheaded and dizziness with presyncope like symptom she had mild abdominal cramps with no abdominal pain felt nausea with no vomiting denies any emesis. Patient had no fever or chills symptoms become much worse ended up coming to the emergency room where was seen and evaluated her Hemoccult was positive rectal exam showed black stool patient apparently has been taking Excedrin Migraine and if Fioricet for headache. Hemoglobin was slightly bit low she did not require any blood transfusion but was admitted to the ICU will be seen in general surgery for Route possible upper scope and colonoscopy H&H will be done every 6 hours for now and transfuse blood if hemoglobin is below 8 especially if she is symptomatic. 07/23/19: Patient is sitting up in bed in no acute distress, patient states that she had some chest pain related to indigestion this morning this comes and goes. She normally takes medication twice a day for that. She is on a GI prophylaxis at this time. Patient states she has not had a bowel movement since yesterday. Her hemoglobin was 6.2 this morning 1 unit of packed red blood cells will be t ransfused. Patient is scheduled for colonoscopy on Thursday. Patient is afebrile, she was hemodynamically stable. Urine output is adequate. Chest x- ray this morning shows mild cardiomegaly Review Of Systems: Constitutional: No fever, no chills, no night sweats. No weight change. No weakness, fatigue or lethargy. No daytime sleepiness. EENT: No headache. No blurred vision or double vision, no loss of vision. No loss of Hearing, no ringing in the ears, no dizziness. No nasal drainage or c ongestion. No epistaxis. No sore throat. Lungs: No shortness of breath, cough, no sputum production. No wheezing. Cardiovascular: No chest pain, no lower extremity edema. No palpitations. No paroxysmal nocturnal dyspnea. No orthopnea. No lightheadedness or dizziness. No syncopal episodes. Abdominal: no abdominal discomfort. No nausea, vomiting. no diarrhea. No constipation. No bloody or tarry stools. no loss of appetite. Genitourinary: No dysuria, increased frequency, urgency. No urinary retention. Musculoskeletal: No myalgias. No muscle weakness, no gait dysfunction, no frequent falls. No back pain. No neck pain. Integumentary: No wounds, no lesions. No rash or pruritus. No unusual bruising. No change in hair or nails. Neurologic: No aphasia. No facial droop. No change in mentation. No head injury. No headache. No paralysis. No paresthesia. Psychiatric: No depression. No anxiety. No mood swings. Endocrine: No abnormal blood sugars. No weight change. No excessive sweating or thirst. Objective - Vital Signs Vital signs: Vital Signs Temp 98.9 F 07/23/19 04:00 Pulse 73 07/23/19 07:00 Resp 15 07/23/19 07:00 BP 110/60 07/23/19 07:00 Pulse Ox 97 07/23/19 07:37 Intake & Output 07/22/19 07/23/19 07/23/19 18:59 06:59 18:59 Intake Total 1730 1450 100 Output Total 1165 635 45 Balance 565 815 55 Weight 133.1 kg Intake: IV 50 1100 100 Sodium Chloride 0.9% 1, 1100 100 000 ml @ 100 mls/hr IV . Q10H [facility] Rx#:[id number] Intake, IV Titration 1200 100 Amount Sodium Chloride 0.9% 1, 1200 100 000 ml @ 100 mls/hr IV . Q10H [facility] Rx#:[id number] Oral 480 250 Output: Urine 1165 635 45 Other: Voiding Method Indwelling Catheter Indwelling Catheter # Bowel Movements 1 - Exam General Appearance: Alert, cooperative, no distress, appears stated age. Neck HEENT: Supple, no lymphadenopathy, no thyroid enlargement, no carotid bruits. Lungs: Clear to auscultation without crackles or wheezes no rhonchi, no deformity. Chest Wall: Chest wall normal expansion with deep inspiration no tenderness and no deformity was found on exam, no costochondral pain or discomfort. Heart: Regular rate and rhythm, S1, S2 normal, no murmur, rub or gallop. Back: Symmetric, no curvature, ROM normal, no CVA tenderness. Abdomen: Soft, non-tender, no rebound or rigidity, no hepatosplenomegaly. Extremities: Extremities normal, atraumatic, no cyanosis or edema. Pulses: 2+ and symmetric. Skin: Skin color, texture, tugor normal, no rashes or lesions. Neurologic: Alert oriented x3 cranial nerves II through XII intact, no motor deficit, no abnormal balance or gait - Labs CBC & Chem 7: 07/23/19 04:53 07/23/19 04:53 Labs: Abnormal Lab Results - Last 24 Hours (Table) 07/21/19 07/22/19 07/22/19 Range/Units 21:32 08:05 09:10 RBC (3.80-5.40) m/uL Hgb (11.4-16.0) gm/dL Hct (34.0-46.0) % MCHC (31.0-37.0) g/dL Neutrophils # (1.3-7.7) k/uL Glucose (74-99) mg/dL Calcium (8.4-10.2) mg/dL Troponin I 0.063 H* (0.000-0.034) ng/mL Stool Occult Blood Positive H (Negative) Crossmatch See Detail 07/22/19 07/22/19 07/23/19 Range/Units 15:53 20:32 04:53 RBC 2.64 L 2.48 L 2.21 L (3.80-5.40) m/uL Hgb 7.6 L 7.5 L 6.2 L* (11.4-16.0) gm/dL Hct 24.4 L 23.2 L 20.2 L (34.0-46.0) % MCHC 30.6 L (31.0-37.0) g/dL Neutrophils # 7.9 H (1.3-7.7) k/uL Glucose (74-99) mg/dL Calcium (8.4-10.2) mg/dL Troponin I (0.000-0.034) ng/mL Stool Occult Blood (Negative) Crossmatch 07/23/19 Range/Units 04:53 RBC (3.80-5.40) m/uL Hgb (11.4-16.0) gm/dL Hct (34.0-46.0) % MCHC (31.0-37.0) g/dL Neutrophils # (1.3-7.7) k/uL Glucose 122 H (74-99) mg/dL Calcium 7.7 L (8.4-10.2) mg/dL Troponin I (0.000-0.034) ng/mL Stool Occult Blood (Negative) Crossmatch Microbiology - Last 24 Hours (Table) 07/21/19 22:59 Blood Culture - Preliminary Blood No Growth after 24 hours Assessment and Plan Plan: 1 acute GI bleed: No evidence of blood in the upper GI tract, patient is scheduled for colonoscopy on Thursday with Dr. Boudreaux. if still an active bleed might require red cell tag scan or further testing to see the bleeding if all ne gative patient can benefit from small bowel capsule endoscopy. Continue to monitor hemoglobin, transfuse as appropriate. 2 acute blood loss anemia: Hemoglobin 6.2, transfuse 1 unit of packed red blood cells 3 lightheadedness dizziness and presyncope: Secondary to acute blood loss anemia with bleeding and hypotension from volume loss continue supportive care watch for any further drop in hemoglobin. 4 hypothyroidism: levothyroxine at 75 g daily. 5 chronic neuropathy: Lyrica 75 mg daily at bedtime. 6 fluid overload: furosemide which should be held for 24 hours. 7 chronic depression: Cymbalta 60 mg daily at bedtime. Continue alprazolam 1 as-needed basis. 8 history of sarcoidosis: Has been remission. 9 hyperlipidemia: On diet control. 10 elevated troponin with possible non-ST SD: Cardiology consult appreciated. Elevated troponin most likely due to hypoperfusion from the severity of bleeding. 11 hyperglycemia: Continue diet control continue Accu-Chek sliding scales coverage no need for any medication currently. CODE STATUS: Full code. GI prophylaxis: pantoprazole IV. DVT prophylaxis: Venodyne boots and knee-high RELL hose no heparin or any anticoagulation with the bleed. Admit for greater than 2 nights Impression and plan of care have been directed as dictated by the signing physician. Nisa Vaca nurse practitioner acting as scribe for signing physician.
[2019-07-23] MEDS: METOPROLOL TARTRATE 25 MG TAB PO SCH ×3 (08:41→23:23)
[2019-07-23] MEDS: LORATADINE 10 MG TAB PO SCH (08:41)
[2019-07-23] MEDS: FUROSEMIDE 20 MG TAB PO SCH (08:41)
--- NOTE | 2019-07-23 11:13 | PN ---
PROGRESS NOTE DATE OF SERVICE: July 23, 2019 This is a 68-year-old female who presented to the emergency room with GI bleed. She was thought to have a lower GI bleed. Anyway, the patient is doing reasonably well, although this morning's hemoglobin was 6.2, and she is going to receive 1 unit of PRBCs. She is receiving saline IV at 100 mL an hour and O2 at 2 L. She is not having any abdominal discomfort or abdominal pain. The patient had an EGD. The EGD was essentially normal. There was no evidence of any blood in the upper GI tract. She is apparently scheduled for a colonoscopy on Thursday. Other than that, she is doing reasonably well. As I mentioned no particular complaints although she is quite pale. PHYSICAL EXAMINATION: VITAL SIGNS: Current vital signs include temperature 99.4, heart rate 74, respiratory rate 11, blood pressure 101/49 mean 66, saturations are 99% on 2 L. GENERAL: She appears in no acute distress. HEENT examination is grossly unremarkable. Mucous membranes are moist. No oral lesions. NECK: Supple. Full range of motion. No adenopathy. Neck veins are flat. CARDIOVASCULAR examination reveals regular rhythm and rate. S1, S2 normal. No S3, S4, or murmur. LUNGS: Reveal clear breath sounds. No wheezes, rhonchi, or crackles. ABDOMEN: Soft. Bowel sounds are heard. EXTREMITIES are intact. No cyanosis, clubbing, or edema. SKIN is pale because of her anemia. NEUROLOGIC examination is brief but nonfocal. LABS: Reviewed. White count 8.4, hemoglobin 6.2, hematocrit 20.2, platelet count 384,000. Sodium, potassium, chloride and CO2 all normal. Anion gap is 2. BUN and creatinine were 17 and 0.69. Troponin was 0.063. Stools for occult blood were positive. Chest x- ray was done this morning. Shows mild cardiomegaly. The patient is going to receive 1 unit of blood this morning. MEDICATIONS: Reviewed. She is currently on Tylenol, Xanax, Cymbalta, Lasix Synthroid, Claritin, Lopressor, Narcan, Protonix, GoLYTELY prep, Lyrica, and her IV. ASSESSMENT: 1. Lower gastrointestinal bleed with resultant blood-loss anemia. 2. Normal EGD. 3. History of diverticular disease. 4. History of asthma. 5. History of cerebrovascular accident. 6. Fibromyalgia. 7. History of gastroesophageal reflux disease. 8. Hyperlipidemia. 9. Degenerative joint disease. 10.Hypothyroidism. 11.Migraine cephalgia. 12.History of sarcoidosis. 13.Prior history of gastritis and esophagitis. 14.Essential tremor. 15.History of cerebrovascular accident. 16.Parkinson disease. 17.Carpal tunnel syndrome. 18.Sciatic neuralgia. PLAN: The patient's EGD was normal. There is no blood in the upper GI tract. She is scheduled for colonoscopy on Thursday. She will be receiving 1 unit of PRBCs today because her hemoglobin this morning is 6.2. She is currently asymptomatic, although she is quite pale. Additional recommendations and suggestions are forthcoming. Prognosis is guarded. MMODL / IJN: [id number] /
--- NOTE | 2019-07-23 13:26 | P.PN ---
Subjective Progress Note Date: 07/23/19 CHIEF COMPLAINT: GI bleed HISTORY OF PRESENT ILLNESS: The patient is a 68-year-old female who came in with acute blood loss anemia and hypotension. No bowel movements overnight. She has received blood. She is pale per discussion with family and during assessment. She reports taking Tumeric--known to increase risks for bleeding. EGD was unremarkable from yesterday. She is getting blood transfusion. ROS: No reports of nausea and vomiting. No bowel movements. No fevers or chills. No new chest pain. No productive sputum PHYSICAL EXAM: VITAL SIGNS: Reviewed CONSTITUTIONAL: Well developed and in no acute distress. EYES: Conjuctivae without sclera icterus. Extraocular movements grossly intact. HEAD, EARS, NOSE, THROAT: Moist buccal mucosa. Head is atraumatic, normocephalic. Hears conversational speech. No nasal drainage. NECK: Supple. No thyroidomegaly. RESPIRATORY: Non-labored respirations and equal bilateral excursions. CARDIOVASCULAR: Palpable 2+ radial pulses. ABDOMEN: Obese. No peritonitis. MUSCULOSKELETAL: No gross deformity of the lower extremities noted. No clubbing. No cyanosis. SKIN: Good skin turgor. Pale. NEUROLOGIC: Cranial nerves I through XII grossly intact. No focal or lateralizing signs. PSYCH: Appropriate affect. Alert and oriented to person, place and time. CLINCAL LABS: White blood cell count normal. Hgb 6.2 MEDICAL REPORT: EGD report reviewed without active bleeding or ulcers. ASSESSMENT: 1. GI bleed. PLAN: 1. Recommend iron infusions for acute blood loss anemia 2. Colonoscopy advised. 3. Education on herbal supplements that increases risks for bleeding also reviewed. Objective - Vital Signs Vital signs: Vital Signs Temp 99 F 07/23/19 10:25 Pulse 67 07/23/19 11:20 Resp 26 H 07/23/19 11:20 BP 93/46 07/23/19 11:20 Pulse Ox 98 07/23/19 11:20 Intake & Output 07/22/19 07/23/19 07/23/19 18:59 06:59 18:59 Intake Total 1730 1450 750 Output Total 1165 635 630 Balance 565 815 120 Weight 133.1 kg Intake: IV 50 1100 500 Sodium Chloride 0.9% 1, 1100 500 000 ml @ 100 mls/hr IV . Q10H [facility] Rx#:[id number] Intake, IV Titration 1200 100 Amount Sodium Chloride 0.9% 1, 1200 100 000 ml @ 100 mls/hr IV . Q10H [facility] Rx#:[id number] Oral 480 250 Blood Product 250 Rc As-1 Unit 0 [id number] Output: Urine 1165 635 630 Other: Voiding Method Indwelling Catheter Indwelling Catheter Indwelling Catheter # Bowel Movements 1 - Labs CBC & Chem 7: 07/24/19 13:55 07/24/19 04:51 Labs: Abnormal Lab Results - Last 24 Hours (Table) 07/21/19 07/22/19 07/22/19 Range/Units 21:32 15:53 20:32 RBC 2.64 L 2.48 L (3.80-5.40) m/uL Hgb 7.6 L 7.5 L (11.4-16.0) gm/dL Hct 24.4 L 23.2 L (34.0-46.0) % MCHC (31.0-37.0) g/dL Neutrophils # 7.9 H (1.3-7.7) k/uL Glucose (74-99) mg/dL Calcium (8.4-10.2) mg/dL Crossmatch See Detail 07/23/19 07/23/19 Range/Units 04:53 04:53 RBC 2.21 L (3.80-5.40) m/uL Hgb 6.2 L* (11.4-16.0) gm/dL Hct 20.2 L (34.0-46.0) % MCHC 30.6 L (31.0-37.0) g/dL Neutrophils # (1.3-7.7) k/uL Glucose 122 H (74-99) mg/dL Calcium 7.7 L (8.4-10.2) mg/dL Crossmatch Microbiology - Last 24 Hours (Table) 07/21/19 22:59 Blood Culture - Preliminary Blood No Growth after 24 hours Assessment and Plan (1) Acute blood loss anemia Current Visit: Yes Status: Acute Code(s): D62 - ACUTE POSTHEMORRHAGIC ANEMIA SNOMED Code(s): 234495474 (2) Morbid obesity due to excess calories Current Visit: Yes Status: Acute Code(s): E66.01 - MORBID (SEVERE) OBESITY DUE TO EXCESS CALORIES SNOMED Code(s): 578821155 (3) BMI 50.0-59.9, adult Current Visit: Yes Status: Acute Code(s): Z68.43 - BODY MASS INDEX (BMI) 50- 59.9, ADULT SNOMED Code(s): 289974818 (4) Hypotension Current Visit: Yes Status: Acute Code(s): I95.9 - HYPOTENSION, UNSPECIFIED SNOMED Code(s): 98779451 (5) Melena Current Visit: Yes Status: Acute Code(s): K92.1 - MELENA SNOMED Code(s): 8078130
[2019-07-23] MEDS ORDERED: SODIUM FERRIC GLUCONAT-SUCROSE 125 MG in SODIUM CHLORIDE 0.9% 100 ML IVPB SCH (14:00)
[2019-07-23 15:47] LABS: HCT 22.7 % (34.0-46.0); Hypochromasia Slight; MCH 29.1 pg (25.0-35.0); MCV 93.9 fL (80.0-100.0); Mean Platelet Volume 6.6; Platelet Count 291 k/uL (150-450); RBC 2.41 m/uL (3.80-5.40); WBC 13.2 k/uL (3.8-10.6)
[2019-07-23] MEDS: PREGABALIN 75 MG CAP PO SCH (22:06)
[2019-07-23] MEDS: DULoxetine HCL 60 MG CAPSULE.DR PO SCH (22:06)
[2019-07-23 22:38] LABS: Iron Saturation 10.61 (12.00-45.00)
[2019-07-23 22:42] LABS: Ferritin 21.2 ng/mL (10.0-291.0)
[2019-07-24] MEDS: ALPRAZolam 1 MG TAB PO PRN ×2 (03:05→23:20)
[2019-07-24 05:05] LABS: Basophils % (A) 0 %; Eosinophils # (A) 0.1 k/uL (0-0.7); Eosinophils % (A) 1 %; Lymphocytes # (A) 2.5 k/uL (1.0-4.8); Lymphocytes % (A) 29 %; MCH 28.9 pg (25.0-35.0); MCHC 31.1 g/dL (31.0-37.0); MCV 92.9 fL (80.0-100.0); Mean Platelet Volume 6.3; Monocytes # (A) 0.4 k/uL (0-1.0); Monocytes % (A) 5 %; Neutrophils # (A) 5.6 k/uL (1.3-7.7); Neutrophils % (A) 63 %; Platelet Count 254 k/uL (150-450); RBC 2.13 m/uL (3.80-5.40); RDW 15.5 % (11.5-15.5); WBC 8.9 k/uL (3.8-10.6)
[2019-07-24 05:20] LABS: HCT 19.8 % (34.0-46.0); HGB 6.2 gm/dL (11.4-16.0)
[2019-07-24 05:34] LABS: African American GFR (CKD) >90 (>60 ml/min/1.73 sqM); Anion Gap 6 mmol/L; Blood Urea Nitrogen 17 mg/dL (7-17); Calcium 7.8 mg/dL (8.4-10.2); Carbon Dioxide 26 mmol/L (22-30); Chloride 107 mmol/L (98-107); Glucose 115 mg/dL (74-99); Potassium 3.7 mmol/L (3.5-5.1); Sodium 139 mmol/L (137-145)
[2019-07-24] MEDS: SODIUM CHLORIDE 0.9% 1,000 ML IV SCH ×2 (05:42→15:59)
[2019-07-24] MEDS ORDERED: POTASSIUM CHLORIDE ER 20 MEQ TAB.ER PO SCH (06:00)
[2019-07-24] MEDS: LEVOTHYROXINE 75 MCG TAB PO SCH (06:08)
[2019-07-24] MEDS ORDERED: LIDOCAINE 1% 20 ML VIAL (10MG/ML) FOR IV START INTRADERMA PRN (07:40)
[2019-07-24] MEDS ORDERED: PHYTONADIONE ORAL 5 MG/5 ML ORAL.SYRG PO STA (08:19)
[2019-07-24] MEDS: ACETAMINOPHEN TAB 325 MG TAB PO PRN (08:29)
[2019-07-24] MEDS ORDERED: BUTALB/APAP/CAFF 50-325-40MG TAB PO STA (08:32)
--- NOTE | 2019-07-24 08:34 | P.PN ---
Subjective Progress Note Date: 07/24/19 Principal diagnosis: Abnormal cardiac enzymes This is a pleasant 68-year-old female patient with a past medical history significant for hypertension as well as thyroid disorder was admitted to the hospital with abdominal discomfort and GI bleeding. She underwent an upper endoscopy which came in to be unremarkable and she is in process of having lower endoscopy. We involved in her care because of mildly abnormal cardiac enzymes. No history of coronary artery disease or congestive heart failure or cardiac arrhythmia. On follow-up with the patient today, 07/24/2019, the patient denies any symptoms of chest pain or chest discomfort. The hemoglobin continues to be below 7 and she is in process of receiving one unit of packed RBC. She is on Lasix by mouth. Yesterday she was given Lasix IV after the one unit of blood. She is going to undergo colonoscopy tomorrow. She underwent an EGD which came in to be unremarkable. Objective - Vital Signs Vital signs: Vital Signs Temp 99.9 F H 07/24/19 08:00 Pulse 68 07/24/19 08:00 Resp 24 07/24/19 08:00 BP 115/56 07/24/19 08:00 Pulse Ox 97 07/24/19 08:00 Intake & Output 07/23/19 07/24/19 07/24/19 18:59 06:59 18:59 Intake Total 2610 1100 450 Output Total 1200 550 35 Balance 1410 550 415 Weight 134.4 kg Intake: IV 1100 1100 100 Sodium Chloride 0.9% 1, 1100 1100 100 000 ml @ 100 mls/hr IV . Q10H [facility] Rx#:[id number] Oral 900 Blood Product 560 0 310 Rc As-1 Unit 0 310 [id number] Rc As-1 Unit 310 [id number] Other 50 40 Rc As-1 Unit 40 [id number] Rc As-1 Unit 50 [id number] Output: Urine 1200 550 35 Other: Voiding Method Indwelling Catheter Indwelling Catheter - Constitutional General appearance: Present: no acute distress - Respiratory Respiratory: bilateral: diminished - Cardiovascular Rhythm: regular Heart sounds: normal: S1, S2 - Labs CBC & Chem 7: 07/24/19 04:51 07/24/19 04:51 Labs: Abnormal Lab Results - Last 24 Hours (Table) 07/21/19 07/23/19 07/23/19 Range/Units 21:32 04:53 15:21 WBC 13.2 H (3.8-10.6) k/uL RBC 2.41 L (3.80-5.40) m/uL Hgb 7.0 L (11.4-16.0) gm/dL Hct 22.7 L (34.0-46.0) % Glucose (74-99) mg/dL Calcium (8.4-10.2) mg/dL Iron 28 L (50-170) ug/dL Iron Saturation 10.61 L (12.00-45.00) Crossmatch See Detail 07/24/19 07/24/19 Range/Units 04:51 04:51 WBC (3.8-10.6) k/uL RBC 2.13 L (3.80-5.40) m/uL Hgb 6.2 L* (11.4-16.0) gm/dL Hct 19.8 L* (34.0-46.0) % Glucose 115 H (74-99) mg/dL Calcium 7.8 L (8.4-10.2) mg/dL Iron (50-170) ug/dL Iron Saturation (12.00-45.00) Crossmatch Microbiology - Last 24 Hours (Table) 07/21/19 22:59 Blood Culture - Preliminary Blood No Growth after 48 hours Assessment and Plan Assessment: Assessment #1 upper GI bleeding #2 blood loss anemia #3 mildly abnormal cardiac enzymes Plan #1 the abnormal troponin is likely related to the severe anemia #2 I would continue the current dose of metoprolol #3 hold any kind of antiplatelet at this point #4 follow-up with the patient
--- NOTE | 2019-07-24 08:45 | P.PN ---
Subjective Progress Note Date: 07/24/19 68-year-old female one of Dr. Jayleen Lloyd patient with the past medical history of CVA, asthma, fibromyalgia, hypertension, hyperlipidemia, Parkinson disease, history of sarcoidosis who began to have dark tarry stool 2 days. Admission her stool become almost black in the morning for admission with slight discomfort lower abdominal region area along with feeling lightheaded and dizziness with presyncope like symptom she had mild abdominal cramps with no abdominal pain felt nausea with no vomiting denies any emesis. Patient had no fever or chills symptoms become much worse ended up coming to the emergency room where was seen and evaluated her Hemoccult was positive rectal exam showed black stool patient apparently has been taking Excedrin Migraine and if Fioricet for headache. Hemoglobin was slightly bit low she did not require any blood transfusion but was admitted to the ICU will be seen in general surgery for Route possible upper scope and colonoscopy H&H will be done every 6 hours for now and transfuse blood if hemoglobin is below 8 especially if she is symptomatic. 07/23/19: Patient is sitting up in bed in no acute distress, patient states that she had some chest pain related to indigestion this morning this comes and goes. She normally takes medication twice a day for that. She is on a GI prophylaxis at this time. Patient states she has not had a bowel movement since yesterday. Her hemoglobin was 6.2 this morning 1 unit of packed red blood cells will be t ransfused. Patient is scheduled for colonoscopy on Thursday. Patient is afebrile, she was hemodynamically stable. Urine output is adequate. Chest x- ray this morning shows mild cardiomegaly 07/24/2019: Patient is sitting up in bed in no acute distress, patient states that she is feeling a bit better today denies any chest pain or shortness of breath. Patient's hemoglobin dropped to 6.2 from 7. At this time she is getting one transfusion and will have one additional transfusion for a total of 4 transfusion over the course of 2 days. Patient is scheduled for colonoscopy on Thursday. Her Lyrica and sinus a prior was discontinued from surgery due to increased risk of bleeding. Patient received 1 dose of vitamin K orally to combat the effects of turmeric. Patient is afebrile, hemodynamically stable. Urinary output is adequate. She continues to have burgundy colored stools. Review Of Systems: Constitutional: No fever, no chills, no night sweats. No weight change. No weakness, fatigue or lethargy. No daytime sleepiness. EENT: No headache. No blurred vision or double vision, no loss of vision. No loss of Hearing, no ringing in the ears, no dizziness. No nasal drainage or con gestion. No epistaxis. No sore throat. Lungs: No shortness of breath, cough, no sputum production. No wheezing. Cardiovascular: No chest pain, no lower extremity edema. No palpitations. No paroxysmal nocturnal dyspnea. No orthopnea. No lightheadedness or dizziness. No syncopal episodes. Abdominal: no abdominal discomfort. No nausea, vomiting. no diarrhea. No constipation. No bloody or tarry stools. no loss of appetite. Genitourinary: No dysuria, increased frequency, urgency. No urinary retention. Musculoskeletal: No myalgias. No muscle weakness, no gait dysfunction, no frequent falls. No back pain. No neck pain. Integumentary: No wounds, no lesions. No rash or pruritus. No unusual bruising. No change in hair or nails. Neurologic: No aphasia. No facial droop. No change in mentation. No head injury. No headache. No paralysis. No paresthesia. Psychiatric: No depression. No anxiety. No mood swings. Endocrine: No abnormal blood sugars. No weight change. No excessive sweating or thirst. Objective - Vital Signs Vital signs: Vital Signs Temp 99.6 F 07/24/19 08:39 Pulse 71 07/24/19 08:39 Resp 17 07/24/19 08:39 BP 122/60 07/24/19 08:39 Pulse Ox 97 07/24/19 08:00 Intake & Output 07/23/19 07/24/19 07/24/19 18:59 06:59 18:59 Intake Total 2610 1100 450 Output Total 1200 550 35 Balance 1410 550 415 Weight 134.4 kg Intake: IV 1100 1100 100 Sodium Chloride 0.9% 1, 1100 1100 100 000 ml @ 100 mls/hr IV . Q10H [facility] Rx#:[id number] Oral 900 Blood Product 560 0 310 Rc As-1 Unit 0 310 [id number] Rc As-1 Unit 310 [id number] Rc As-1 Unit 0 [id number] Other 50 40 Rc As-1 Unit 40 [id number] As-1 Unit 50 [id number] Output: Urine 1200 550 35 Other: Voiding Method Indwelling Catheter Indwelling Catheter - Exam General Appearance: Alert, cooperative, no distress, appears stated age. Neck HEENT: Supple, no lymphadenopathy, no thyroid enlargement, no carotid bruits. Lungs: Clear to auscultation without crackles or wheezes no rhonchi, no deformity. Chest Wall: Chest wall normal expansion with deep inspiration no tenderness and no deformity was found on exam, no costochondral pain or discomfort. Heart: Regular rate and rhythm, S1, S2 normal, no murmur, rub or gallop. Back: Symmetric, no curvature, ROM normal, no CVA tenderness. Abdomen: Soft, non-tender, no rebound or rigidity, no hepatosplenomegaly. Extremities: Extremities normal, atraumatic, no cyanosis or edema. Pulses: 2+ and symmetric. Skin: Skin color, texture, tugor normal, no rashes or lesions. Neurologic: Alert oriented x3 cranial nerves II through XII intact, no motor deficit, no abnormal balance or gait - Labs CBC & Chem 7: 07/24/19 04:51 07/24/19 04:51 Labs: Abnormal Lab Results - Last 24 Hours (Table) 07/21/19 07/23/19 07/23/19 Range/Units 21:32 04:53 15:21 WBC 13.2 H (3.8-10.6) k/uL RBC 2.41 L (3.80-5.40) m/uL Hgb 7.0 L (11.4-16.0) gm/dL Hct 22.7 L (34.0-46.0) % Glucose (74-99) mg/dL Calcium (8.4-10.2) mg/dL Iron 28 L (50-170) ug/dL Iron Saturation 10.61 L (12.00-45.00) Crossmatch See Detail 07/24/19 07/24/19 Range/Units 04:51 04:51 WBC (3.8-10.6) k/uL RBC 2.13 L (3.80-5.40) m/uL Hgb 6.2 L* (11.4-16.0) gm/dL Hct 19.8 L* (34.0-46.0) % Glucose 115 H (74-99) mg/dL Calcium 7.8 L (8.4-10.2) mg/dL Iron (50-170) ug/dL Iron Saturation (12.00-45.00) Crossmatch Microbiology - Last 24 Hours (Table) 07/21/19 22:59 Blood Culture - Preliminary Blood No Growth after 48 hours Assessment and Plan Plan: 1 acute GI bleed: No evidence of blood in the upper GI tract, patient is scheduled for colonoscopy on Thursday with Dr. Boudreaux. if still an active bleed might require red cell tag scan or further testing to see the bleeding if all negative patient can benefit from small bowel capsule endoscopy. Continue to monitor hemoglobin, transfuse as appropriate. 2 acute blood loss anemia: Hemoglobin 6.2, transfuse 1 unit of packed red blood cells 3 lightheadedness dizziness and presyncope: Secondary to acute blood loss anemia with bleeding and hypotension from volume loss continue supportive care watch for any further drop in hemoglobin. 4 hypothyroidism: levothyroxine at 75 g daily. 5 chronic neuropathy: Lyrica 75 mg daily at bedtime. 6 fluid overload: furosemide which should be held for 24 hours. 7 chronic depression: Cymbalta 60 mg daily at bedtime. Continue alprazolam 1 as-needed basis. 8 history of sarcoidosis: Has been remission. 9 hyperlipidemia: On diet control. 10 elevated troponin with possible non-ST DC: Cardiology consult appreciated. Elevated troponin most likely due to hypoperfusion from the severity of bleeding. 11 hyperglycemia: Continue diet control continue Accu-Chek sliding scales coverage no need for any medication currently. CODE STATUS: Full code. GI prophylaxis: pantoprazole IV. DVT prophylaxis: Venodyne boots and knee-high RELL hose no heparin or any anticoagulation with the bleed. Admit for greater than 2 nights Impression and plan of care have been directed as dictated by the signing physician. Nisa Vaca nurse practitioner acting as scribe for signing physician.
[2019-07-24] MEDS: LORATADINE 10 MG TAB PO SCH (08:53)
[2019-07-24] MEDS: FUROSEMIDE 20 MG TAB PO SCH (08:53)
[2019-07-24] MEDS: PANTOPRAZOLE 40 MG/10 ML VIAL IVP SCH ×2 (08:54→21:36)
[2019-07-24] MEDS: METOPROLOL TARTRATE 25 MG TAB PO SCH ×3 (08:54→21:36)
[2019-07-24] MEDS: SODIUM FERRIC GLUCONAT-SUCROSE 125 MG in SODIUM CHLORIDE 0.9% 100 ML IVPB SCH (08:55)
--- NOTE | 2019-07-24 09:37 | P.PN ---
Subjective Progress Note Date: 07/24/19 CHIEF COMPLAINT: GI bleed HISTORY OF PRESENT ILLNESS: The patient is a 68-year-old female who came in with acute blood loss anemia and hypotension. No reports of abdominal pain. Blood count dropped from 7.0 to 6.2 despite 1 unit blood transfusion. Review of medications showed continued administration of Citalopram with Lyrica which are synergistic for increased bleeding including recent use of Tumeric. No bloody bowel movements. She is on liquid diet. ROS: No reports of nausea and vomiting. No bowel movements. No fevers or chills. No new chest pain. No productive sputum PHYSICAL EXAM: VITAL SIGNS: Reviewed CONSTITUTIONAL: Well developed and in no acute distress. EYES: Conjuctivae without sclera icterus. Extraocular movements grossly intact. HEAD, EARS, NOSE, THROAT: Moist buccal mucosa. Head is atraumatic, normocephalic. Hears conversational speech. No nasal drainage. NECK: Supple. No thyroidomegaly. RESPIRATORY: Non-labored respirations and equal bilateral excursions. CARDIOVASCULAR: Palpable 2+ radial pulses. ABDOMEN: Obese. No peritonitis. MUSCULOSKELETAL: No gross deformity of the lower extremities noted. No clubbing. No cyanosis. SKIN: Good skin turgor. Pale. NEUROLOGIC: Cranial nerves I through XII grossly intact. No focal or lateralizing signs. PSYCH: Appropriate affect. Alert and oriented to person, place and time. CLINCAL LABS: Hemoglobin reviewed with drop from 7.0 to 6.2 ASSESSMENT: 1. Acute blood loss anemia due to GI hemorrhage PLAN: 1. I reviewed her medications and discontinued Lyrica including Citalopram. Patient is still at increased risk for bleeding as tumeric acts as a mild anticoagulant. 2. Started 1 x dose of Vitamin K to counteract effects of tumeric as effects may last up to 2 weeks including with increased potency with Lyrica and Citalopram. 3. May re-start home medications once bleeding has resolved and hemoglobin st able for 2 days or 48 hrs 4. Colonoscopy scheduled for tomorrow with bowel prep today. Objective - Vital Signs Vital signs: Vital Signs Temp 98.8 F 07/24/19 09:19 Pulse 69 07/24/19 09:19 Resp 15 07/24/19 09:19 BP 112/58 07/24/19 09:19 Pulse Ox 97 07/24/19 08:00 Intake & Output 07/23/19 07/24/19 07/24/19 18:59 06:59 18:59 Intake Total 2610 1100 550 Output Total 1200 550 135 Balance 1410 550 415 Weight 134.4 kg Intake: IV 1100 1100 200 Sodium Chloride 0.9% 1, 1100 1100 200 000 ml @ 100 mls/hr IV . Q10H [facility] Rx#:[id number] Oral 900 Blood Product 560 0 310 Rc As-1 Unit 0 310 [id number] Rc As-1 Unit 310 [id number] Rc As-1 Unit 0 [id number] Other 50 40 Rc As-1 Unit 40 [id number] Rc As-1 Unit 50 [id number] Output: Urine 1200 550 135 Other: Voiding Method Indwelling Catheter Indwelling Catheter - Labs CBC & Chem 7: 07/24/19 13:55 07/24/19 04:51 Labs: Abnormal Lab Results - Last 24 Hours (Table) 07/21/19 07/23/19 07/23/19 Range/Units 21:32 04:53 15:21 WBC 13.2 H (3.8-10.6) k/uL RBC 2.41 L (3.80-5.40) m/uL Hgb 7.0 L (11.4-16.0) gm/dL Hct 22.7 L (34.0-46.0) % Glucose (74-99) mg/dL Calcium (8.4-10.2) mg/dL Iron 28 L (50-170) ug/dL Iron Saturation 10.61 L (12.00-45.00) Crossmatch See Detail 07/24/19 07/24/19 Range/Units 04:51 04:51 WBC (3.8-10.6) k/uL RBC 2.13 L (3.80-5.40) m/uL Hgb 6.2 L* (11.4-16.0) gm/dL Hct 19.8 L* (34.0-46.0) % Glucose 115 H (74-99) mg/dL Calcium 7.8 L (8.4-10.2) mg/dL Iron (50-170) ug/dL Iron Saturation (12.00-45.00) Crossmatch Microbiology - Last 24 Hours (Table) 07/21/19 22:59 Blood Culture - Preliminary Blood No Growth after 48 hours Assessment and Plan (1) Acute blood loss anemia Current Visit: Yes Status: Acute Code(s): D62 - ACUTE POSTHEMORRHAGIC ANEMIA SNOMED Code(s): 269549624 (2) BMI 50.0-59.9, adult Current Visit: Yes Status: Acute Code(s): Z68.43 - BODY MASS INDEX (BMI) 50- 59.9, ADULT SNOMED Code(s): 708133985 (3) Hypotension Current Visit: Yes Status: Acute Code(s): I95.9 - HYPOTENSION, UNSPECIFIED SNOMED Code(s): 88292417 (4) Morbid obesity due to excess calories Current Visit: Yes Status: Acute Code(s): E66.01 - MORBID (SEVERE) OBESITY DUE TO EXCESS CALORIES SNOMED Code(s): 368480912
--- NOTE | 2019-07-24 09:37 | PN ---
PROGRESS NOTE DATE OF SERVICE: July 24, 2019 This is a 68-year-old female who presented to the emergency room on the with GI bleed. The patient has received a total of 3 units of PRBCs. This morning hemoglobin was 6.2. She is going to receive 2 units today. The patient will start her prep for her colonoscopy today. The colonoscopy will be done tomorrow. She is on O2 at 2 L. She is getting saline at 100 mL an hour. She otherwise remains stable. Denies any significant pain. She has had some additional bloody and maroon bowel movements. No fever, no chills. No chest pain or chest discomfort. No shortness of breath or difficulty breathing. PHYSICAL EXAMINATION: VITAL SIGNS: Currently, her vital signs are reviewed. Temperature is 99. Heart rate 75, respiratory rate 20, blood pressure 115/56, mean 75, saturations 96% on 2 L. GENERAL: Appears in no acute distress. HEENT examination is grossly unremarkable. Mucous membranes are moist. No oral lesions. NECK: Supple. Full range of motion. No adenopathy, thyromegaly or neck vein distention. CARDIOVASCULAR examination reveals regular rhythm and rate. Heart rate 75 beats per minute. S1, S2 normal. No murmur. LUNGS: Reveal clear breath sounds. No wheezes, rhonchi, or crackles. ABDOMEN is mildly distended. Abdomen is soft. No tenderness on palpation. Bowel sounds are noted. EXTREMITIES are intact. No cyanosis, clubbing, or edema. Skin is pale. NEUROLOGIC: Examination is brief but nonfocal. White count 8.9, hemoglobin 6.2, hematocrit 19.8, platelet count 354,000. Sodium, potassium, chloride, CO2, anion gap, BUN and creatinine were all normal. Microbiology is negative. No recent x-rays to report. Her x-ray from yesterday showed just mild cardiomegaly. She is getting 2 units of blood today. ASSESSMENT: 1. Suspected lower gastrointestinal bleed with resultant blood-loss anemia. 2. Normal EGD. 3. History of diverticular disease, but no prior history of significant gastrointestinal bleeding. 4. History of asthma, which is inactive. 5. History of cerebrovascular accident. 6. Fibromyalgia. 7. History of gastroesophageal reflux disease. 8. Hyperlipidemia. 9. Degenerative joint disease. 10.Hypothyroidism. 11.Migraine cephalgia. 12.History of sarcoidosis. 13.Prior history of gastritis and esophagitis. 14.Central tremor. 15.History of cerebrovascular accident. 16.History of Parkinson disease. 17.Carpal tunnel syndrome. 18.Sciatic neuralgia. PLAN: The patient will be given her prep today for her colonoscopy tomorrow. Her EGD was essentially unremarkable. We will give her 2 units of blood today. Continue to monitor her closely. No additional recommendations are made. Prognosis is guarded. Clinically, she appears to be very stable. MMODL / IJN: [id number] /
[2019-07-24] MEDS ORDERED: PEG 3350-NA SULF,BICARB,CL/KCL 4,000 ML BOTTLE PO ONE (12:00)
[2019-07-24 14:13] LABS: HCT 23.7 % (34.0-46.0); MCH 30.1 pg (25.0-35.0); MCV 88.5 fL (80.0-100.0); Mean Platelet Volume 5.9; Platelet Count 237 k/uL (150-450); RBC 2.68 m/uL (3.80-5.40); RDW 15.4 % (11.5-15.5); WBC 7.5 k/uL (3.8-10.6)
[2019-07-24] MEDS: DULoxetine HCL 60 MG CAPSULE.DR PO SCH (21:36)
[2019-07-24 22:18] LABS: Anisocytosis Slight; HCT 26.3 % (34.0-46.0); HGB 8.5 gm/dL (11.4-16.0); MCH 29.2 pg (25.0-35.0); MCHC 32.2 g/dL (31.0-37.0); MCV 90.7 fL (80.0-100.0); Mean Platelet Volume 6.6; Platelet Count 256 k/uL (150-450); RDW 16.1 % (11.5-15.5); WBC 8.9 k/uL (3.8-10.6)
[2019-07-25] MEDS: SODIUM CHLORIDE 0.9% 1,000 ML IV SCH ×2 (02:19→11:42)
[2019-07-25 04:52] LABS: Basophils % (A) 0 %; Eosinophils # (A) 0.1 k/uL (0-0.7); Eosinophils % (A) 2 %; HCT 23.7 % (34.0-46.0); HGB 7.8 gm/dL (11.4-16.0); Lymphocytes # (A) 1.9 k/uL (1.0-4.8); Lymphocytes % (A) 25 %; MCH 29.8 pg (25.0-35.0); MCV 90.3 fL (80.0-100.0); Monocytes # (A) 0.4 k/uL (0-1.0); Monocytes % (A) 5 %; Neutrophils # (A) 5.2 k/uL (1.3-7.7); Neutrophils % (A) 66 %; Platelet Count 257 k/uL (150-450); RBC 2.62 m/uL (3.80-5.40); WBC 7.9 k/uL (3.8-10.6)
[2019-07-25 05:04] LABS: African American GFR (CKD) >90 (>60 ml/min/1.73 sqM); Anion Gap 2 mmol/L; Blood Urea Nitrogen 9 mg/dL (7-17); Calcium 8.3 mg/dL (8.4-10.2); Carbon Dioxide 32 mmol/L (22-30); Chloride 105 mmol/L (98-107); Glucose 97 mg/dL (74-99); Potassium 3.6 mmol/L (3.5-5.1); Sodium 139 mmol/L (137-145)
[2019-07-25] MEDS: POTASSIUM CHLORIDE 10 MEQ in WATER FOR INJECTION 1 100ML.BAG IVPB SCH ×2 (05:27→07:04)
[2019-07-25] MEDS: LEVOTHYROXINE 75 MCG TAB PO SCH (06:24)
[2019-07-25] MEDS: LACTATED RINGERS 1,000 ML IV SCH ×2 (08:25→08:26)
[2019-07-25] MEDS: SODIUM FERRIC GLUCONAT-SUCROSE 125 MG in SODIUM CHLORIDE 0.9% 100 ML IVPB SCH (09:34)
[2019-07-25] MEDS: METOPROLOL TARTRATE 25 MG TAB PO SCH ×3 (10:08→20:54)
[2019-07-25] MEDS ORDERED: IV FLUID CONTINUATION 1,000 ML IV ONE ×2 (10:57)
[2019-07-25] MEDS ORDERED: LIDOCAINE 1% INJ 10MG/ML (20 ML MDV) ONE (10:57)
[2019-07-25] MEDS ORDERED: PROPOFOL 10 MG/ML 20 ML VIAL IV ONE (10:57)
--- NOTE | 2019-07-25 11:18 | P.OP ---
Date of Procedure: 07/25/19 Preoperative Diagnosis: GI bleed Postoperative Diagnosis: Diverticulosis Right colon polyp Procedure(s) Performed: Colonoscopy Anesthesia: MAC Surgeon: Rudolph Boudreaux Pathology: other (Right colon polyp) Condition: stable Disposition: PACU Description of Procedure: The patient's placed on the endoscopy table in the lateral position. She received IV sedation. Digital rectal exam was performed which revealed a few external hemorrhoids. Flexible colonoscope was then placed patient anus and passed throughout the entire colon. The ileocecal valve was visualized. The cecum appeared normal. In the right colon there was a submucosal mass which appeared to be a subcu lipoma.. This area is biopsied. There were scattered diverticula right colon. The transverse colon contained numerous diverticula. Scope was then brought back the descending colon and extensive diverticular changes seen. In the sigmoid colon there is extensive diverticulosis. There is no evidence of any GI bleed. There is no blood seen in the colon at all. Scope was brought back the rectum and this appeared normal. Scope withdrawn for patient. This presumed patient had a diverticular bleed and cause her lower GI bleed.
[2019-07-25] MEDS: LORATADINE 10 MG TAB PO SCH (11:45)
[2019-07-25] MEDS: FUROSEMIDE 20 MG TAB PO SCH (11:45)
[2019-07-25] MEDS: PANTOPRAZOLE 40 MG/10 ML VIAL IVP SCH ×2 (11:46→20:54)
--- NOTE | 2019-07-25 13:21 | P.PN ---
Subjective Principal diagnosis: Patient is resting comfortably in bed. Denies any dizziness chest pain no undue shortness of breath She underwent endoscopy, he EGD. No bleeding sources were noted. Hemoglobin is low and she received packed red cells She was admitted with abdominal pain and GI bleeding. Currently was consulted on account of mildly abnormal troponins Heart sounds zoster normal no murmurs or gallops or rub Breath sounds are clear no rhonchi no crackles Blood pressure 132/61 mmHg, pulse rate in the 70s afebrile 98.2F Impression Severe anemia due to GI bleeding, hemoglobin less than 7 patient received multiple packed red cells Mildly abnormal troponins likely due to demand ischemia secondary to severe acute anemia No ECG changes on admission Plan Continue beta blockers Continue GI workup Please call cardiology as needed Objective - Vital Signs Vital signs: Vital Signs Temp 98.2 F 07/25/19 12:00 Pulse 85 07/25/19 12:00 Resp 35 H 07/25/19 12:00 BP 119/51 07/25/19 12:00 Pulse Ox 93 L 07/25/19 12:00 Intake & Output 07/24/19 07/25/19 07/25/19 18:59 06:59 18:59 Intake Total 5980 1200 700 Output Total 3235 1775 495 Balance 2745 -575 205 Weight 133 kg Intake: IV 1100 1200 700 Sodium Chloride 0.9% 1, 1100 1200 600 000 ml @ 100 mls/hr IV . Q10H [facility] Rx#:[id number] Intake, IV Titration 100 Amount Sodium Ferric Gluconat- 100 Sucrose 125 mg In Sodium Chloride 0.9% 100 ml @ 100 mls/hr IVPB DAILY [facility] Rx#:[id number] Oral 4120 Blood Product 620 Rc As-1 Unit 310 [id number] Rc As-1 Unit 310 [id number] Other 40 Rc As-1 Unit 40 [id number] Output: Urine 3235 1775 495 Other: Voiding Method Indwelling Catheter Indwelling Catheter Indwelling Catheter - Labs CBC & Chem 7: 07/25/19 04:20 07/25/19 04:20 Labs: Abnormal Lab Results - Last 24 Hours (Table) 07/24/19 07/24/19 07/25/19 Range/Units 13:55 22:04 04:20 RBC 2.68 L 2.90 L 2.62 L (3.80-5.40) m/uL Hgb 8.0 L D 8.5 L 7.8 L (11.4-16.0) gm/dL Hct 23.7 L 26.3 L 23.7 L (34.0-46.0) % RDW 16.1 H 16.0 H (11.5-15.5) % Carbon Dioxide (22-30) mmol/L Calcium (8.4-10.2) mg/dL 07/25/19 Range/Units 04:20 RBC (3.80-5.40) m/uL Hgb (11.4-16.0) gm/dL Hct (34.0-46.0) % RDW (11.5-15.5) % Carbon Dioxide 32 H (22-30) mmol/L Calcium 8.3 L (8.4-10.2) mg/dL Microbiology - Last 24 Hours (Table) 07/21/19 22:59 Blood Culture - Preliminary Blood No Growth after 72 hours
--- NOTE | 2019-07-25 14:12 | P.PN ---
Subjective Progress Note Date: 07/25/19 68-year-old female one of Dr. Jayleen Lloyd patient with the past medical history of CVA, asthma, fibromyalgia, hypertension, hyperlipidemia, Parkinson disease, history of sarcoidosis who began to have dark tarry stool 2 days. Admission her stool become almost black in the morning for admission with slight discomfort lower abdominal region area along with feeling lightheaded and dizziness with presyncope like symptom she had mild abdominal cramps with no abdominal pain felt nausea with no vomiting denies any emesis. Patient had no fever or chills symptoms become much worse ended up coming to the emergency room where was seen and evaluated her Hemoccult was positive rectal exam showed black stool patient apparently has been taking Excedrin Migraine and if Fioricet for headache. Hemoglobin was slightly bit low she did not require any blood transfusion but was admitted to the ICU will be seen in general surgery for Route possible upper scope and colonoscopy H&H will be done every 6 hours for now and transfuse blood if hemoglobin is below 8 especially if she is symptomatic. 07/23/19: Patient is sitting up in bed in no acute distress, patient states that she had some chest pain related to indigestion this morning this comes and goes. She normally takes medication twice a day for that. She is on a GI prophylaxis at this time. Patient states she has not had a bowel movement since yesterday. Her hemoglobin was 6.2 this morning 1 unit of packed red blood cells will be transfused. Patient is scheduled for colonoscopy on Thursday. Patient is afebrile, she was hemodynamically stable. Urine output is adequate. Chest x- ray this morning shows mild cardiomegaly 07/24/2019: Patient is sitting up in bed in no acute distress, patient states that she is feeling a bit better today denies any chest pain or shortness of breath. Patient's hemoglobin dropped to 6.2 from 7. At this time she is getting one transfusion and will have one additional transfusion for a total of 4 transfusion over the course of 2 days. Patient is scheduled for colonoscopy on Thursday. Her Lyrica and sinus a prior was discontinued from surgery due to increased risk of bleeding. Patient received 1 dose of vitamin K orally to combat the effects of turmeric. Patient is afebrile, hemodynamically stable. Urinary output is adequate. She continues to have burgundy colored stools. 07/25: Patient has gone for colonoscopy with Dr. Boudreaux which revealed diverticulosis and right colon polyp. There was a submucosal mass in the right colon which appeared to be a subcu lipoma. This area was biopsied. No evidence of GI bleed. It is presumed the patient had a diverticular bleed that caused her lower GI bleed. Hemoglobin today is 7.8 and she is status post transfusion of 3 units of packed RBCs. Patient has been cleared for transfer to the [facility] without telemetry. Review Of Systems: Constitutional: No fever, no chills, no night sweats. No weight change. No weakness, fatigue or lethargy. No daytime sleepiness. EENT: No headache. No blurred vision or double vision, no loss of vision. No loss of Hearing, no ringing in the ears, no dizziness. No nasal drainage or congestion. No epistaxis. No sore throat. Lungs: No shortness of breath, cough, no sputum production. No wheezing. Cardiovascular: No chest pain, no lower extremity edema. No palpitations. No paroxysmal nocturnal dyspnea. No orthopnea. No lightheadedness or dizziness. No syncopal episodes. Abdominal: no abdominal discomfort. No nausea, vomiting. no diarrhea. No constipation. No bloody or tarry stools. no loss of appetite. Genitourinary: No dysuria, increased frequency, urgency. No urinary retention. Musculoskeletal: No myalgias. No muscle weakness, no gait dysfunction, no frequent falls. No back pain. No neck pain. Integumentary: No wounds, no lesions. No rash or pruritus. No unusual bruising. No change in hair or nails. Neurologic: No aphasia. No facial droop. No change in mentation. No head injury. No headache. No paralysis. No paresthesia. Psychiatric: No depression. No anxiety. No mood swings. Endocrine: No abnormal blood sugars. No weight change. No excessive sweating or thirst. Objective - Vital Signs Vital signs: Vital Signs Temp 98.4 F 07/25/19 08:00 Pulse 77 07/25/19 10:00 Resp 21 07/25/19 10:00 BP 132/61 07/25/19 10:00 Pulse Ox 92 L 07/25/19 10:00 Intake & Output 07/24/19 07/25/19 07/25/19 18:59 06:59 18:59 Intake Total 5980 1200 500 Output Total 3235 1775 245 Balance 2745 -575 255 Weight 133 kg Intake: IV 1100 1200 500 Sodium Chloride 0.9% 1, 1100 1200 400 000 ml @ 100 mls/hr IV . Q10H [facility] Rx#:[id number] Intake, IV Titration 100 Amount Sodium Ferric Gluconat- 100 Sucrose 125 mg In Sodium Chloride 0.9% 100 ml @ 100 mls/hr IVPB DAILY [facility] Rx#:[id number] Oral 4120 Blood Product 620 Rc As-1 Unit 310 [id number] Rc As-1 Unit 310 [id number] Other 40 Rc As-1 Unit 40 [id number] Output: Urine 3235 1775 245 Other: Voiding Method Indwelling Catheter Indwelling Catheter Indwelling Catheter - Exam General Appearance: Alert, cooperative, no distress, appears stated age. Neck HEENT: Supple, no lymphadenopathy, no thyroid enlargement, no carotid bruits. Lungs: Clear to auscultation without crackles or wheezes no rhonchi, no deformity. Chest Wall: Chest wall normal expansion with deep inspiration no tenderness and no deformity was found on exam, no costochondral pain or discomfort. Heart: Regular rate and rhythm, S1, S2 normal, no murmur, rub or gallop. Back: Symmetric, no curvature, ROM normal, no CVA tenderness. Abdomen: Soft, non-tender, no rebound or rigidity, no hepatosplenomegaly. Extremities: Extremities normal, atraumatic, no cyanosis or edema. Pulses: 2+ and symmetric. Skin: Skin color, texture, tugor normal, no rashes or lesions. Neurologic: Alert oriented x3 cranial nerves II through XII intact, no motor deficit, no abnormal balance or gait - Labs CBC & Chem 7: 07/25/19 04:20 07/25/19 04:20 Labs: Abnormal Lab Results - Last 24 Hours (Table) 07/24/19 07/24/19 07/25/19 Range/Units 13:55 22:04 04:20 RBC 2.68 L 2.90 L 2.62 L (3.80-5.40) m/uL Hgb 8.0 L D 8.5 L 7.8 L (11.4-16.0) gm/dL Hct 23.7 L 26.3 L 23.7 L (34.0-46.0) % RDW 16.1 H 16.0 H (11.5-15.5) % Carbon Dioxide (22-30) mmol/L Calcium (8.4-10.2) mg/dL 07/25/19 Range/Units 04:20 RBC (3.80-5.40) m/uL Hgb (11.4-16.0) gm/dL Hct (34.0-46.0) % RDW (11.5-15.5) % Carbon Dioxide 32 H (22-30) mmol/L Calcium 8.3 L (8.4-10.2) mg/dL Microbiology - Last 24 Hours (Table) 07/21/19 22:59 Blood Culture - Preliminary Blood No Growth after 72 hours Assessment and Plan Plan: 1 acute lower GI bleed status post colonoscopy with Dr. Boudreaux. Patient's been cleared for regular diet for dinner. Transfer to the [facility] floor. 2 acute blood loss anemia status post transfusion of a total of 3 units packed RBCs 3 lightheadedness dizziness and presyncope: Secondary to acute blood loss anemia with bleeding and hypotension from volume loss continue supportive care watch for any further drop in hemoglobin. 4 hypothyroidism: levothyroxine at 75 g daily. 5 chronic neuropathy: Lyrica 75 mg daily at bedtime. 6 fluid overload: furosemide which should be held for 24 hours. 7 chronic depression: Cymbalta 60 mg daily at bedtime. Continue alprazolam 1 as-needed basis. 8 history of sarcoidosis: Has been remission. 9 hyperlipidemia: On diet control. 10 elevated troponin with possible non-ST UT: Cardiology consult appreciated. Elevated troponin most likely due to hypoperfusion from the severity of bleeding. 11 hyperglycemia: Continue diet control continue Accu-Chek sliding scales coverage no need for any medication currently. CODE STATUS: Full code. GI prophylaxis: pantoprazole IV. DVT prophylaxis: Venodyne boots and knee-high RELL hose no heparin or any anticoagulation with the bleed. Discharge plan: Home in the next 24-48 hours. Impression and plan of care have been directed as dictated by the signing physician. Anh Robertson nurse practitioner acting as scribe for signing physician.
--- NOTE | 2019-07-25 16:26 | P.PN ---
Subjective Progress Note Date: 07/25/19 This is a 68-year-old female patient is currently in the intensive care unit for lower GI bleeding. The patient has a known history of diverticulosis. She had a recent EGD that showed no upper GI source of bleeding. The patient is scheduled to have a colonoscopy today. Otherwise, the patient is currently nothing by mouth awaiting her endoscopy. Doing well. Specific complaints. Hemoglobin is stable. Note that the patient received a total of 2 units of packed RBC 4 hemoglobin of 6.2 and subsequent hemoglobin came up to 7.8. She is receiving IV fluids at the rate of 100 is an hour. Coagulation profile is within normal limits. She doesn't take any form of blood thinners or antiplatelet agents. She is doing well for now and she has no specific complaints. Objective - Vital Signs Vital signs: Vital Signs Temp 98.2 F 07/25/19 12:00 Pulse 85 07/25/19 12:00 Resp 35 H 07/25/19 12:00 BP 119/51 07/25/19 12:00 Pulse Ox 93 L 07/25/19 12:00 Intake & Output 07/24/19 07/25/19 07/25/19 18:59 06:59 18:59 Intake Total 5980 1200 700 Output Total 3235 1775 495 Balance 2745 -575 205 Weight 133 kg Intake: IV 1100 1200 700 Sodium Chloride 0.9% 1, 1100 1200 600 000 ml @ 100 mls/hr IV . Q10H [facility] Rx#:[id number] Intake, IV Titration 100 Amount Sodium Ferric Gluconat- 100 Sucrose 125 mg In Sodium Chloride 0.9% 100 ml @ 100 mls/hr IVPB DAILY [facility] Rx#:[id number] Oral 4120 Blood Product 620 Rc As-1 Unit 310 [id number] Rc As-1 Unit 310 [id number] Other 40 Rc As-1 Unit 40 [id number] Output: Urine 3235 1775 495 Other: Voiding Method Indwelling Catheter Indwelling Catheter Indwelling Catheter - Exam The patient appeared well nourished and normally developed. Vital signs as documented. Head exam is unremarkable. No scleral icterus or corneal arcus noted. Neck is without jugular venous distension, thyromegaly, or carotid bruits. Carotid upstrokes are brisk bilaterally. Lungs are clear to auscultation and percussion. Cardiac exam reveals the PMI to be normally sized and situated. Rhythm is regular. First and second heart sounds normal. No murmurs, rubs or gallops. Abdominal exam reveals normal bowel sounds, no masses, no organomegaly and no aortic enlargement. Extremities are nonedematous and both femoral and pedal pulses are normal.Examination of the skin revealed no evidence of significant rashes, suspicious appearing nevi or other concerning lesions. Neurologically the patient is awake and alert and there is no focal neurological deficit - Labs CBC & Chem 7: 07/25/19 04:20 07/25/19 04:20 Labs: Abnormal Lab Results - Last 24 Hours (Table) 07/24/19 07/25/19 07/25/19 Range/Units 22:04 04:20 04:20 RBC 2.90 L 2.62 L (3.80-5.40) m/uL Hgb 8.5 L 7.8 L (11.4-16.0) gm/dL Hct 26.3 L 23.7 L (34.0-46.0) % RDW 16.1 H 16.0 H (11.5-15.5) % Carbon Dioxide 32 H (22-30) mmol/L Calcium 8.3 L (8.4-10.2) mg/dL Microbiology - Last 24 Hours (Table) 07/21/19 22:59 Blood Culture - Preliminary Blood No Growth after 72 hours Assessment and Plan Plan: 1 acute lower GI bleed , most likely diverticular bleed. If anoscopy negative, the patient will be transferred to a medical surgical floor. 2 acute blood loss anemia status post transfusion of a total of 3 units packed RBCs him a subsequent hemoglobin improved and septal 7.8. 3 lightheadedness dizziness and presyncope, improved 4 hypothyroidism: 5 chronic neuropathy 6 obesity with a BMI 53.6 7 chronic depression 8 history of sarcoidosis , currently in remission. 9 hyperlipidemia 10 elevated troponin , nonspecific troponin leak secondary to acute blood loss/anemia, acute non-STEMI is doubtful. Plan Proceed with colonoscopy. Monitor hemoglobin. We'll continue to follow. The patient can be transferred to a medical surgical floor if colonoscopy is negative. Outpatient medications of been all resumed. We'll continue to follow.
[2019-07-25] MEDS: DULoxetine HCL 60 MG CAPSULE.DR PO SCH (20:54)
[2019-07-25] MEDS: ALPRAZolam 1 MG TAB PO PRN (22:38)
[2019-07-26 00:55] VITALS: PULSE 80
[2019-07-26 04:59] LABS: African American GFR (CKD) >90 (>60 ml/min/1.73 sqM); Anion Gap 4 mmol/L; Blood Urea Nitrogen 7 mg/dL (7-17); Calcium 8.2 mg/dL (8.4-10.2); Carbon Dioxide 30 mmol/L (22-30); Chloride 103 mmol/L (98-107); Glucose 92 mg/dL (74-99); Potassium 3.4 mmol/L (3.5-5.1); Sodium 137 mmol/L (137-145)
[2019-07-26 05:33] LABS: Anisocytosis Slight; Basophils # (A) 0.2 k/uL (0-0.2); Basophils % (A) 3 %; Eosinophils # (A) 0.1 k/uL (0-0.7); Eosinophils % (A) 2 %; HCT 25.8 % (34.0-46.0); HGB 7.8 gm/dL (11.4-16.0); Hypochromasia Slight; Lymphocytes # (A) 1.4 k/uL (1.0-4.8); Lymphocytes % (A) 23 %; MCH 28.4 pg (25.0-35.0); MCHC 30.4 g/dL (31.0-37.0); MCV 93.5 fL (80.0-100.0); Mean Platelet Volume 7.2; Monocytes # (A) 0.5 k/uL (0-1.0); Monocytes % (A) 8 %; Neutrophils # (A) 3.7 k/uL (1.3-7.7); Neutrophils % (A) 61 %; Platelet Count 390 k/uL (150-450); RBC 2.76 m/uL (3.80-5.40); RDW 17.3 % (11.5-15.5)
[2019-07-26] MEDS: POTASSIUM CHLORIDE ER 20 MEQ TAB.ER PO SCH ×2 (05:34→06:38)
[2019-07-26] MEDS: LEVOTHYROXINE 75 MCG TAB PO SCH (06:38)
--- NOTE | 2019-07-26 07:34 | P.PN ---
Subjective Progress Note Date: 07/26/19 On 07/26/2019 the patient is doing well. No complaints. He was stable at 7.8. No nausea. No vomiting. No abdominal pain. No bloody bowel movement. Previous EGD showed no source of upper GI bleed his colonoscopy was also completed showed diverticular disease which was most likely source of bleeding. No nausea. No vomiting. No chest pain. No cough or sputum production. No other complaints otherwise. Started on diet and the diet is gradually being advanced. She is off the turmeric and Lodine. Overnight, there has been no other issues and the patient is resting comfortably in bed. Objective - Vital Signs Vital signs: Vital Signs Temp 98.6 F 07/25/19 20:00 Pulse 80 07/25/19 20:00 Resp 20 07/25/19 20:00 BP 134/58 07/25/19 20:00 Pulse Ox 97 07/25/19 20:00 Intake & Output 07/25/19 07/26/19 07/26/19 18:59 06:59 18:59 Intake Total 700 220 Output Total 1095 350 700 Balance -395 -350 -480 Intake: IV 700 Sodium Chloride 0.9% 1, 600 000 ml @ 100 mls/hr IV . Q10H [facility] Rx#:[id number] Oral 220 Output: Urine 1095 350 700 Other: Voiding Method Indwelling Catheter Indwelling Catheter - Exam The patient appeared well nourished and normally developed. Vital signs as documented. Head exam is unremarkable. No scleral icterus or corneal arcus noted. Neck is without jugular venous distension, thyromegaly, or carotid bruits. Carotid upstrokes are brisk bilaterally. Lungs are clear to auscultation and percussion. Cardiac exam reveals the PMI to be normally sized and situated. Rhythm is regular. First and second heart sounds normal. No murmurs, rubs or gallops. Abdominal exam reveals normal bowel sounds, no masses, no organomegaly and no aortic enlargement. Extremities are nonedematous and both femoral and pedal pulses are normal.Examination of the skin revealed no evidence of significant rashes, suspicious appearing nevi or other concerning lesions. Neurologically the patient is awake and alert and there is no focal neurological deficit - Labs CBC & Chem 7: 07/26/19 04:06 07/26/19 04:10 Labs: Abnormal Lab Results - Last 24 Hours (Table) 07/21/19 07/26/19 07/26/19 Range/Units 21:32 04:06 04:10 RBC 2.76 L (3.80-5.40) m/uL Hgb 7.8 L (11.4-16.0) gm/dL Hct 25.8 L (34.0-46.0) % MCHC 30.4 L (31.0-37.0) g/dL RDW 17.3 H (11.5-15.5) % Potassium 3.4 L (3.5-5.1) mmol/L Calcium 8.2 L (8.4-10.2) mg/dL Crossmatch See Detail Microbiology - Last 24 Hours (Table) 07/21/19 22:59 Blood Culture - Preliminary Blood No Growth after 96 hours Assessment and Plan Plan: 1 acute lower GI bleed , most likely diverticular bleed. Hemoglobin is stable for now. The colonoscopy revealed diverticular disease without evidence of any acute bleeding. We will has remained stable at 7.8. 2 acute blood loss anemia status post transfusion of a total of 3 units packed RBCs him a subsequent hemoglobin improved and septal 7.8. Hemoglobin is stable and the patient has not had any further GI bleeding. 3 lightheadedness dizziness and presyncope, improved 4 hypothyroidism: 5 chronic neuropathy 6 obesity with a BMI 53.6 7 chronic depression 8 history of sarcoidosis , currently in remission. 9 hyperlipidemia 10 elevated troponin , nonspecific troponin leak secondary to acute blood loss/anemia, acute non-STEMI is doubtful. Plan Anoscopy completed. The results were noted. There is diverticular bleed which is currently inactive and stable. Advance diet in hemoglobin is stable. Chest and the patient out of the intensive care units.
[2019-07-26] MEDS: PANTOPRAZOLE 40 MG/10 ML VIAL IVP SCH (09:09)
[2019-07-26] MEDS: METOPROLOL TARTRATE 25 MG TAB PO SCH (09:10)
[2019-07-26] MEDS: FUROSEMIDE 20 MG TAB PO SCH (09:10)
[2019-07-26] MEDS: LORATADINE 10 MG TAB PO SCH (09:10)
[2019-07-26] MEDS: SODIUM FERRIC GLUCONAT-SUCROSE 125 MG in SODIUM CHLORIDE 0.9% 100 ML IVPB SCH (09:10)
[2019-07-26 09:20] VITALS: RESP 18
--- NOTE | 2019-07-26 10:45 | P.PN ---
Subjective This is Brittnee Billings PA-C dictating a progress note on this patient The patient was interviewed and examined by me as well as by Dr. Leyva Case discussed with Dr. Leyva and he agrees with the plan of care IMPRESSION / ASSESSMENT: Anemia secondary to acute GI bleed likely secondary to diverticular bleed, hemoglobin stable type II WI secondary to anemia Hypertension, blood pressure well controlled PLAN: Continue by mouth Lasix Continue current cardiac medication regimen We will sign off now, please call us on an as-needed basis if any cardiac issues arise HPI/interval history Patient is a 68-year-old female with a past medical history significant for hypertension and thyroid disease who presented with complaints of abdominal discomfort and GI bleeding. She was found to have abnormal troponins and was anemic. She received packed red blood cells. She underwent a colonoscopy which showed diverticulosis. Today her hemoglobin is stable at 7.8. Patient seen and examined sitting up in the chair. States she has not had any further episodes of bleeding. Denies any dizziness. No shortness of breath but she did sleep in her recliner. No chest pain. EXAMINATION Temperature 98.7F, pulse 80, respirations 18, blood pressure 120/74, oxygen saturation 95% on room air Patient seen and examined sitting up in the chair, in no acute distress Lungs with few scattered crackles at the bases Heart sounds are soft, regular No lower extremity edema No elevated JVD REVIEW OF LABS, ECG WBC 6.0, hemoglobin 7.8, platelets 390, potassium 3.4, BUN 7, creatinine 0.52 Objective - Vital Signs Vital signs: Vital Signs Temp 97.8 F 07/26/19 08:01 Pulse 80 07/26/19 08:01 Resp 18 07/26/19 08:01 BP 128/74 07/26/19 08:01 Pulse Ox 95 07/26/19 08:01 Intake & Output 07/25/19 07/26/19 07/26/19 18:59 06:59 18:59 Intake Total 700 220 Output Total 1095 350 700 Balance -395 -350 -480 Weight 133 kg Intake: IV 700 Sodium Chloride 0.9% 1, 600 000 ml @ 100 mls/hr IV . Q10H [facility] Rx#:[id number] Oral 220 Output: Urine 1095 350 700 Other: Voiding Method Indwelling Catheter Indwelling Catheter Bedside Commode # Voids 1 # Bowel Movements 1 - Labs CBC & Chem 7: 07/26/19 04:06 07/26/19 04:10 Labs: Abnormal Lab Results - Last 24 Hours (Table) 07/21/19 07/26/19 07/26/19 Range/Units 21:32 04:06 04:10 RBC 2.76 L (3.80-5.40) m/uL Hgb 7.8 L (11.4-16.0) gm/dL Hct 25.8 L (34.0-46.0) % MCHC 30.4 L (31.0-37.0) g/dL RDW 17.3 H (11.5-15.5) % Potassium 3.4 L (3.5-5.1) mmol/L Calcium 8.2 L (8.4-10.2) mg/dL Crossmatch See Detail Microbiology - Last 24 Hours (Table) 07/21/19 22:59 Blood Culture - Preliminary Blood No Growth after 96 hours
--- NOTE | 2019-07-26 11:32 | CDI ---
Documentation Clarification Form Date: 07/26/2019 11:17:35 AM From: Guillermina Osei CCS, CCDS Admit Date: 07/22/2019 12:00:00 AM Patient Name: Catia Falk Visit Number: [id number] Discharge Date: ATTENTION: The Clinical Documentation Specialists (CDI) and [facility] Coding Staff appreciate your assistance in clarifying documentation. Please respond to the clarification below the line at the bottom and electronically sign. The CDI & [facility] Coding staff will review the response and follow-up if needed. Please note: Queries are made part of the Legal Health Record. If you have any questions, please contact the author of this message via ITS. Dr. Dominic Leyva: Per the Cardiology progress note on 07/25: "Mildly abnormal troponins likely due to demand ischemia secondary to severe acute anemia. No ECG changes on admission." Per the Cardiology progress note on 07/24: "the abnormal troponin is likely related to the severe anemia." Patient History/Risk Factors: Diverticulosis, gastritis & esophagitis, previous GI bleed, GERd, Hypothyroidism, Chronic neuropathy, Chronic depression, History of sarcoidosis in remission, Hyperlipidemia & CVA Clinical Indicators: Presented to the ED with dark tarry, gopal stools & bright red blood per rectum. Cardiology consulted for elevated troponins. Diagnosed with GI bleeding possibly diverticulosis & acute blood loss anemia. Troponin: 0.063^^, 0.108^^, 0.063^^ EKG Results: R 86 nsr Treatment: IV Protonix, IV Tranexamic Acid, IV Rocephin, IV fluid bolus, IV fluid @ 1000, po Lasix, Lopressor. Blood transfusion x3: PRBCs. In order to capture the severity of condition and necessary documentation specificity, please clarify the type of infarction or if an infarction has been ruled out: Myocardial Infarction ruled out Myocardial Infarction ruled in, please specify type if known: Myocardial Infarction Type I Myocardial Infarction Type II Other, please specify Unable to determine (Last Revision: July 2017) MTDD
[2019-07-26 12:16] VITALS: BP 123/61; TEMP 98.5
--- NOTE | 2019-08-05 08:09 | P.DS ---
Providers Date of admission: 07/22/19 00:00 Expected date of discharge: 07/26/19 Attending physician: Kodak Metcalf Consults: 07/21/19 22:43 Consult Physician Urgent Consulting Provider: Rudolph Boudreaux Consult Reason/Comments: GI BLeeding Do you want consulting provider notified?: Already Contacted 07/21/19 23:07 Consult Physician Stat Consulting Provider: Jacobo Bowen Consult Reason/Comments: GI BLeeding. Anemia. ICU management Do you want consulting provider notified?: Already Contacted 07/22/19 05:57 Consult Physician Routine Consulting Provider: Shashank Constantino Consult Reason/Comments: elevated troponins Do you want consulting provider notified?: Yes Primary care physician: [facility] Course: 68-year-old female one of Dr. Lloyd patient with the past medical history of CVA, asthma, fibromyalgia, hypertension, hyperlipidemia, Parkinson disease, history of sarcoidosis who began to have dark tarry stool 2 days. Admission her stool become almost black in the morning for admission with slight discomfort lower abdominal region area along with feeling lightheaded and dizziness with presyncope like symptom she had mild abdominal cramps with no abdominal pain felt nausea with no vomiting denies any emesis. Patient had no fever or chills symptoms become much worse ended up coming to the emergency room where was seen and evaluated her Hemoccult was positive rectal exam showed black stool patient apparently has been taking Excedrin Migraine and if Fioricet for headache. Hemoglobin was slightly bit low she did not require any blood transfusion but was admitted to the ICU will be seen in general surgery for Route possible upper scope and colonoscopy H&H will be done every 6 hours for now and transfuse blood if hemoglobin is below 8 especially if she is symptomatic. 07/23/19: Patient is sitting up in bed in no acute distress, patient states that she had some chest pain related to indigestion this morning this comes and goes. She normally takes medication twice a day for that. She is on a GI prophylaxis at this time. Patient states she has not had a bowel movement since yesterday. Her hemoglobin was 6.2 this morning 1 unit of packed red blood cells will be transfused. Patient is scheduled for colonoscopy on Thursday. Patient is afebrile, she was hemodynamically stable. Urine output is adequate. Chest x- ray this morning shows mild cardiomegaly 07/24/2019: Patient is sitting up in bed in no acute distress, patient states that she is feeling a bit better today denies any chest pain or shortness of nighat ath. Patient's hemoglobin dropped to 6.2 from 7. At this time she is getting one transfusion and will have one additional transfusion for a total of 4 transfusion over the course of 2 days. Patient is scheduled for colonoscopy on Thursday. Her Lyrica and sinus a prior was discontinued from surgery due to increased risk of bleeding. Patient received 1 dose of vitamin K orally to combat the effects of turmeric. Patient is afebrile, hemodynamically stable. Urinary output is adequate. She continues to have burgundy colored stools. 07/25: Patient has gone for colonoscopy with Dr. Boudreaux which revealed diverticulosis and right colon polyp. There was a submucosal mass in the right colon which appeared to be a subcu lipoma. This area was biopsied. No evidence of GI bleed. It is presumed the patient had a diverticular bleed that caused her lower GI bleed. Hemoglobin today is 7.8 and she is status post transfusion of 3 units of packed RBCs. Patient has been cleared for transfer to the [facility] without telemetry. 07/26: Hemoglobin is 7.8. Patient doesn't have any nausea or vomiting. No abdominal pain. No bloody bowel movement. She had had no difficulties overnight. Patient will be discharged home today in stable condition. Discharge diagnoses: 1 acute lower GI bleed is likely due to diverticular bleed status post colonoscopy with Dr. Boudreaux. 2 acute blood loss anemia status post transfusion of a total of 3 units packed RBCs 3 lightheadedness dizziness and presyncope: Secondary to acute blood loss anemia with bleeding and hypotension 4 hypothyroidism 5 chronic neuropathy 6 fluid overload from IV fluid resuscitation. No heart failure 7 recurrent depression 8 history of sarcoidosis 9 hyperlipidemia 10 type 2 non-ST elevated MA secondary to anemia 11 hyperglycemia Discharge plan: Home Impression and plan of care have been directed as dictated by the signing physician. Anh Robertson nurse practitioner acting as scribe for signing physician. Patient Condition at Discharge: Good Plan - Discharge Summary Discharge Rx Participant: Yes New Discharge Prescriptions: New Metoprolol Tartrate [Lopressor] 25 mg PO TID #90 tab Continue Levothyroxine Sodium [Synthroid] 75 mcg PO DAILY ALPRAZolam [Xanax] 1.5 mg PO BID Multivitamins, Thera [Multivitamin (formulary)] 1 tab PO DAILY Loratadine [Claritin] 10 mg PO DAILY Cyanocobalamin (Vitamin B-12) [Vitamin B-12] 5,000 mcg SUBLINGUAL DAILY Cholecalciferol [Vitamin D3 (25 Mcg = 1000 Iu)] 5,000 unit PO HS Pregabalin [Lyrica] 75 mg PO HS Butalb/APAP/Caff 50-325-40Mg [Fioricet 50-325-40] 1 - 2 tab PO DAILY PRN PRN Reason: Migraine Headache DULoxetine HCL [Cymbalta] 60 mg PO HS Ferrous Sulfate [Iron (65 MG Elemental)] 325 mg PO DAILY Furosemide [Lasix] 20 mg PO DAILY Zinc 50 mg PO DAILY Propylene Glycol/Peg 400/Pf [Systane 0.3-0.4% Eye Drop] 1 dropper BOTH EYES DAILY Acetaminophen [Tylenol Arthritis] 1,300 mg PO BID traMADol HCL 50 mg PO TID DULoxetine HCL [Cymbalta] 30 mg PO DAILY Beclomethasone Dip 80 Mcg/Puff [Qvar 80 mcg] 1 puff INHALATION RT-BID Lidocaine Patch Unknown Dose 1 patch TOPICAL DAILY PRN PRN Reason: Pain Changed Omeprazole [PriLOSEC] 20 mg PO AC-BRKFST #0 Discontinued Etodolac [Lodine XR] 600 mg PO BID Turmeric Root Extract [Turmeric] 500 mg PO DAILY Discharge Medication List ALPRAZolam [Xanax] 1.5 mg PO BID 12/20/15 [History] Cholecalciferol [Vitamin D3 (25 Mcg = 1000 Iu)] 5,000 unit PO HS 12/20/15 [History] Cyanocobalamin (Vitamin B-12) [Vitamin B-12] 5,000 mcg SUBLINGUAL DAILY 12/20/15 [History] Levothyroxine Sodium [Synthroid] 75 mcg PO DAILY 12/20/15 [History] Loratadine [Claritin] 10 mg PO DAILY 12/20/15 [History] Multivitamins, Thera [Multivitamin (formulary)] 1 tab PO DAILY 12/20/15 [History] Pregabalin [Lyrica] 75 mg PO HS 12/22/16 [History] Butalb/APAP/Caff 50-325-40Mg [Fioricet 50-325-40] 1 - 2 tab PO DAILY PRN 02/10/19 [History] DULoxetine HCL [Cymbalta] 60 mg PO HS 02/10/19 [History] Ferrous Sulfate [Iron (65 MG Elemental)] 325 mg PO DAILY 02/10/19 [History] Furosemide [Lasix] 20 mg PO DAILY 02/10/19 [History] Acetaminophen [Tylenol Arthritis] 1,300 mg PO BID 07/22/19 [History] Beclomethasone Dip 80 Mcg/Puff [Qvar 80 mcg] 1 puff INHALATION RT-BID 07/22/19 [History] DULoxetine HCL [Cymbalta] 30 mg PO DAILY 07/22/19 [History] Lidocaine Patch Unknown Dose 1 patch TOPICAL DAILY PRN 07/22/19 [History] Propylene Glycol/Peg 400/Pf [Systane 0.3-0.4% Eye Drop] 1 dropper BOTH EYES DAILY 07/22/19 [History] Zinc 50 mg PO DAILY 07/22/19 [History] traMADol HCL 50 mg PO TID 07/22/19 [History] Metoprolol Tartrate [Lopressor] 25 mg PO TID #90 tab 07/26/19 [Rx] Omeprazole [PriLOSEC] 20 mg PO AC-BRKFST #0 07/26/19 [Rx] Follow up Appointment(s)/Referral(s): Rajan Henao DO [Primary Care Provider] - 08/17/19 11:00 am Rudolph Boudreaux MD [STAFF PHYSICIAN] - 08/02/19 1:30 pm Patient Instructions/Handouts: Gastrointestinal Bleeding (DC) Discharge Disposition: HOME SELF-CARE
== END 2019-07-26 14:05 | disposition home or self-care (01) | DRG 377 ==
LOC: EC 21:08 → 2SICU 07-22
PROVIDERS: ADMIT Internal Medicine Geriatric Medicine; ATTEND Internal Medicine Geriatric Medicine
PROC: 0DJ08ZZ Inspection of Upper Intestinal Tract, Via Natural or Artificial Opening Endoscopic (ICD-10-PCS; 2019-07-22)
PROC: 30233N1 Transfusion of Nonautologous Red Blood Cells into Peripheral Vein, Percutaneous Approach (ICD-10-PCS; 2019-07-23)
PROC: 0DBF8ZX Excision of Right Large Intestine, Via Natural or Artificial Opening Endoscopic, Diagnostic (ICD-10-PCS; principal; 2019-07-25 10:50)
DX: K57.31 Diverticulosis of large intestine without perforation or abscess with bleeding (principal); I21.A1 Myocardial infarction type 2; D62 Acute posthemorrhagic anemia; Z68.43 Body mass index [BMI] 50.0-59.9, adult; I69.354 Hemiplegia and hemiparesis following cerebral infarction affecting left non-dominant side; D86.9 Sarcoidosis, unspecified; E03.9 Hypothyroidism, unspecified; E66.01 Morbid (severe) obesity due to excess calories; E78.5 Hyperlipidemia, unspecified; E87.70 Fluid overload, unspecified; F32.9 Major depressive disorder, single episode, unspecified; F41.9 Anxiety disorder, unspecified; G20 Parkinson's disease; G43.909 Migraine, unspecified, not intractable, without status migrainosus; G56.00 Carpal tunnel syndrome, unspecified upper limb; G62.9 Polyneuropathy, unspecified; G89.29 Other chronic pain; I10 Essential (primary) hypertension; J45.909 Unspecified asthma, uncomplicated; K21.0 Gastro-esophageal reflux disease with esophagitis; K63.5 Polyp of colon; M19.90 Unspecified osteoarthritis, unspecified site; M79.7 Fibromyalgia; Z79.890 Hormone replacement therapy; Z79.899 Other long term (current) drug therapy; Z80.0 Family history of malignant neoplasm of digestive organs; Z80.41 Family history of malignant neoplasm of ovary; Z90.49 Acquired absence of other specified parts of digestive tract; Z96.653 Presence of artificial knee joint, bilateral; Z98.84 Bariatric surgery status; F40.240 Claustrophobia; R73.9 Hyperglycemia, unspecified; Z88.2 Allergy status to sulfonamides; Z88.8 Allergy status to other drugs, medicaments and biological substances
CPT/HCPCS: 36415; 43235; 45380; 51702; 71045; 80048; 80053; 81001; 82272; 82728; 83540; 83550; 83605; 83735; 84132; 84484; 85025; 85027; 85610; 85730; 86850; 86900; 86901; 86920; 87040; 88305; 93005; 93306; 96365; 96367; 96375; 99291

== ENCOUNTER → 2019-12-09 | Outpatient (CLI) | payer MEDICARE, BC, OTHER ==
--- NOTE | 2019-12-09 13:28 | MR ---
EXAMINATION TYPE: MR knee RT wo con DATE OF EXAM: 12/09/2019 COMPARISON: None HISTORY: Internal derangement of rt knee TECHNIQUE: Multiplanar, multisequence imaging of the right knee is performed without IV contrast. FINDINGS/ IMPRESSION: Despite arthroplasty/demyelinating protocol the exam was aborted after 3 sequences as the examination was nondiagnostic due to extensive metallic susceptibility artifact. There is partial vi sualization of the suprapatellar joint effusion with some internal complexity. Consider synovitis. Th e remainder the exam is nondiagnostic.
== END | disposition home or self-care (01) ==
LOC: RADMRIMAIN 12:04
PROVIDERS: ATTEND Family Medicine
DX: M25.461 Effusion, right knee (principal); M23.91 Unspecified internal derangement of right knee; Z96.651 Presence of right artificial knee joint

== ENCOUNTER → 2021-11-15 | Outpatient (CLI) | payer MEDICARE, BC, OTHER ==
[2021-11-15 16:50] LABS: African American GFR (CKD) >90 (>60 ml/min/1.73 sqM); Blood Urea Nitrogen 14 mg/dL (7-17); Non-African American GFR(CKD) >90 (>60 ml/min/1.73 sqM)
--- NOTE | 2021-11-16 06:27 | CT ---
EXAMINATION TYPE: CT brain wo/w con DATE OF EXAM: 11/15/2021 COMPARISON: MRI brain April 12, 20202013 HISTORY: headaches and dizziness. hx of TIA. CT DLP: 1956.4 mGycm Automated exposure control for dose reduction was used. CONTRAST: CT scan of the head is performed without and with IV Contrast, patient injected with 100 mL of Isovue 300. FINDINGS: Noncontrast images show no acute intracranial hemorrhage or midline shift. Mild ventricular and sulcal prominence is redemonstrated. [id number] areas of low attenuation throughout the p eriventricular white matter is again seen. Postcontrast images show no abnormal enhancing masses. Dom inant right vertebral artery filling the basilar artery is redemonstrated. The globes are intact and the visualized sinuses are clear. IMPRESSION: Mild diffuse age-related cerebral atrophy and mild to moderate chronic small vessel ische jacqueline change redemonstrated. No suspicious enhancing masses noted.
--- NOTE | 2021-11-16 06:29 | US ---
EXAMINATION TYPE: US carotid duplex BILAT DATE OF EXAM: 11/15/2021 COMPARISON: Prior carotid ultrasound April 06, 2014 CLINICAL HISTORY: G45.9 Tia. TIA, HTN EXAM MEASUREMENTS: RIGHT: Peak Systolic Velocity (PSV) cm/sec ----- Right CCA: 83.7 ----- Right ICA: 109.9 ----- Right ECA: 98.2 ICA/CCA ratio: 1.3 RIGHT: End Diastole cm/sec ----- Right CCA: 27.0 ----- Right ICA: 35.7 ----- Right ECA: 29.9 LEFT: Peak Systolic Velocity (PSV) cm/sec ----- Left CCA: 72.1 ----- Left ICA: 94.1 ----- Left ECA: 68.8 ICA/CCA ratio: 1.3 LEFT: End Diastole cm/sec ----- Left CCA: 27.0 ----- Left ICA: 33.6 ----- Left ECA: 13.8 VERTEBRALS (direction of flow): Right Vertebral: Antegrade Left Vertebral: Not seen. Rhythm: Normal Limited exam due to patient body habitus and torturous vessels, No elevated velocities Black scale images show mild peripheral plaque at the left carotid bulb. Velocity measurements and rat ios in the internal carotid arteries bilaterally remain within normal limits. IMPRESSION: Suboptimal study without hemodynamically significant stenosis seen in either internal carotid artery. Criteria for Assigning % of Stenosis / Diameter reduction (Estimation based on the indirect measurements of the internal carotid artery velocities (ICA PSV). 1. Normal (no stenosis)=ICA PSV < 125 cm/s: ratio < 2.0: ICA EDV<40 cm/s. 2. Less than 50% stenosis=ICA PSV < 125 cm/s: ratio < 2.0: ICA EDV<40 cm/s. 3. 50 to 69% stenosis=ICA PSV of 125 to 230 cm/s: ration 2.0 ? 4.0: ICA EDV 40-100 cm/s. 4. Greater than 70% stenosis to near occlusion= ICA PSV > 230 cm/s: ratio > 4.0: ICA EDV > 100 cm/s. 5. Near occlusion= ICA PSV velocities may be low or undetectable: variable ratio and ICA EDV. 6. Total occlusion=unable to detect flow.
--- NOTE | 2021-11-16 14:11 | ECHOF ---
Referral Reason:G45.9 Tia MEASUREMENTS -------- HEIGHT: 157.5 cm WEIGHT: 122.0 kg BP: IVSd: 1.1 cm (0.6 - 1.1) LVIDd: 4.2 cm (3.9 - 5.3) LVPWd: 1.3 cm (0.6 - 1.1) IVSs: 1.8 cm LVIDs: 3.0 cm LVPWs: 1.8 cm Ao Diam: 3.3 cm (2.0 - 3.7) AV Cusp: 2.2 cm (1.5 - 2.6) LA Diam: 3.1 cm (2.7 - 3.8) MV EXCURSION: 10.412 mm (> 18.000) MV EF SLOPE: 160 mm/s (70 - 150) EPSS: 0.5 cm MV E John: 0.93 m/s MV DecT: 240 ms MV A John: 0.88 m/s MV E/A Ratio: 1.06 RAP: 5.00 mmHg RVSP: 10.65 mmHg FINDINGS -------- Sinus rhythm. This was a technically adequate study. The left ventricular size is normal. There is mild concentric left ventricular hypertrophy. Overa ll left ventricular systolic function is normal with, an EF between 55 - 60 %. The right ventricle is normal in size. The left atrial size is normal. The right atrial size is normal. The aortic valve was not well visualized. The mitral valve is normal. There is trace mitral regurgitation. The tricuspid valve appears structurally normal. Trace tricuspid regurgitation present. Right tacho tricular systolic pressure is normal at < 35 mmHg. The pulmonic valve was not well visualized. There is no pulmonic regurgitation present. The aortic root size is normal. Normal inferior vena cava with normal inspiratory collapse consistent with estimated right atrial pre ssure of 5 mmHg. There is no pericardial effusion. CONCLUSIONS -------- 1. There is mild concentric left ventricular hypertrophy. 2. Overall left ventricular systolic function is normal with, an EF between 55 - 60 %. 3. There is trace mitral regurgitation. 4. Trace tricuspid regurgitation present. 5. There is no pericardial effusion. WHEEL PRESS OPERATOR: Hanny Echevarria RDCS
== END | disposition home or self-care (01) ==
LOC: RADECHMAIN 15:51
PROVIDERS: ATTEND Family Medicine
DX: G45.9 Transient cerebral ischemic attack, unspecified (principal); G31.9 Degenerative disease of nervous system, unspecified
CPT/HCPCS: 93306; 82565; 84520; 93880; 70470; 36415; Q9967

== ENCOUNTER → 2022-11-11 | Outpatient (CLI) | payer MEDICARE, OTHER ==
--- NOTE | 2022-11-11 11:55 | XR ---
EXAMINATION TYPE: XR hand complete bilateral DATE OF EXAM: 11/11/2022 10:09 AM INDICATION: Patient age:Female; 71 years old; Reason for study: M79.643 Bilateral hand pain; COMPARISON: None TECHNIQUE: Frontal, lateral and oblique views of the bilateral hand were obtained. FINDINGS: Multifocal degeneration changes most pronounced in the interphalangeal joints and the first digit carpometacarpal joint. Findings include hypertrophy, joint space narrowing and osteophyte form ation. These findings are relatively symmetric bilaterally. No evidence of acute fracture. IMPRESSION: Moderate multifocal osteoarthritic changes predominantly at the interphalangeal joints and first digi t carpometacarpal joints bilaterally.
== END | disposition home or self-care (01) ==
LOC: RADXRMAIN 09:36
PROVIDERS: ATTEND Family Medicine
DX: M18.0 Bilateral primary osteoarthritis of first carpometacarpal joints (principal)

== ENCOUNTER 2023-01-03 13:39 | Emergency (ER) | payer MEDICARE, OTHER ==
[2023-01-03] MEDS ORDERED: PANTOPRAZOLE 40 MG/10 ML VIAL IVP STA (13:51)
[2023-01-03 13:59] LABS: Basophils % (A) 0 %; Eosinophils # (A) 0.1 k/uL (0-0.7); Eosinophils % (A) 1 %; HCT 28.6 % (34.0-46.0); Hypochromasia Slight; Lymphocytes # (A) 1.9 k/uL (1.0-4.8); Lymphocytes % (A) 21 %; MCH 28.3 pg (25.0-35.0); MCHC 32.3 g/dL (31.0-37.0); MCV 87.4 fL (80.0-100.0); Mean Platelet Volume 7.2; Monocytes # (A) 0.3 k/uL (0-1.0); Monocytes % (A) 4 %; Neutrophils # (A) 6.7 k/uL (1.3-7.7); Neutrophils % (A) 72 %; Platelet Count 359 k/uL (150-450); RBC 3.27 m/uL (3.80-5.40); RDW 13.6 % (11.5-15.5); WBC 9.2 k/uL (3.8-10.6)
[2023-01-03 14:06] LABS: HGB 9.2 gm/dL (11.4-16.0)
[2023-01-03 14:15] LABS: ALT 19 U/L (4-34); AST 19 U/L (14-36); African American GFR (CKD) >90 (>60 ml/min/1.73 sqM); Albumin 2.8 g/dL (3.5-5.0); Alkaline Phosphatase 94 U/L (38-126); Anion Gap 7 mmol/L; Blood Urea Nitrogen 17 mg/dL (7-17); Calcium 7.7 mg/dL (8.4-10.2); Carbon Dioxide 23 mmol/L (22-30); Chloride 109 mmol/L (98-107); Glucose 182 mg/dL (74-99); Lipase 74 U/L (23-300); Magnesium 1.6 mg/dL (1.6-2.3); Non-African American GFR(CKD) >90 (>60 ml/min/1.73 sqM); Potassium 4.7 mmol/L (3.5-5.1); Sodium 139 mmol/L (137-145); Total Bilirubin 0.2 mg/dL (0.2-1.3); Total Protein 5.3 g/dL (6.3-8.2)
[2023-01-03 14:20] LABS: INR 1.1 (<1.2); Prothrombin Time 11.7 sec (9.0-12.0)
--- NOTE | 2023-01-03 14:36 | ED ---
GI Bleed HPI - General Chief complaint: GI Bleed Stated complaint: GI Bleed Time Seen by Provider: 01/03/23 13:39 Source: patient, RN notes reviewed Mode of arrival: ambulatory Limitations: no limitations - History of Present Illness Initial comments: 72-year-old female her prior history of diverticulosis colon resection history of GI bleeding in the past apparently a history of bleeding hemorrhoids who started having some blood per rectum last evening. She noted that she started having increased bleeding with clots this morning she states she felt lightheaded and dizzy when she try to get up. EMS was finally called. As stated above loss in the toilet and on the ground was over 1 L per paramedics. Patient was noted initially have a blood pressure of 80/56. She did appear to be pale. She does admit that she was called by her doctor yesterday and told that she needed to start iron therapy for anemia. She denies any head neck or back pain a loss of function to her upper or lower extremities no abdominal pain. The patient was given over 1 L of normal saline and route for IV hydration. Blood pressure is reported to have improved. The patient is not on blood thinners she states. MD complaint: gross hematochezia - Related Data Home Medications Medication Instructions Recorded Confirmed ALPRAZolam [Xanax] 1.5 mg PO BID 12/20/15 07/22/19 Cholecalciferol [Vitamin D3 (25 5,000 unit PO HS 12/20/15 07/22/19 Mcg = 1000 Iu)] Cyanocobalamin (Vitamin B-12) 5,000 mcg SUBLINGUAL DAILY 12/20/15 07/22/19 [Vitamin B-12] Levothyroxine Sodium [Synthroid] 75 mcg PO DAILY 12/20/15 07/22/19 Loratadine [Claritin] 10 mg PO DAILY 12/20/15 07/22/19 Multivitamins, Thera [Multivitamin 1 tab PO DAILY 12/20/15 07/22/19 (formulary)] Pregabalin [Lyrica] 75 mg PO HS 12/22/16 07/22/19 Butalb/APAP/Caff 50-325-40Mg 1 - 2 tab PO DAILY PRN 02/10/19 07/22/19 [Fioricet 50-325-40] DULoxetine HCL [Cymbalta] 60 mg PO HS 02/10/19 07/22/19 Ferrous Sulfate [Iron (65 MG 325 mg PO DAILY 02/10/19 07/22/19 Elemental)] Furosemide [Lasix] 20 mg PO DAILY 02/10/19 07/22/19 Acetaminophen [Tylenol Arthritis] 1,300 mg PO BID 07/22/19 07/22/19 Beclomethasone Dip 80 Mcg/Puff 1 puff INHALATION RT-BID 07/22/19 07/22/19 [Qvar 80 mcg] DULoxetine HCL [Cymbalta] 30 mg PO DAILY 07/22/19 07/22/19 Lidocaine Patch Unknown Dose 1 patch TOPICAL DAILY PRN 07/22/19 07/22/19 Propylene Glycol/Peg 400/Pf 1 dropper BOTH EYES DAILY 07/22/19 07/22/19 [Systane 0.3-0.4% Ophth Dropperette] Zinc 50 mg PO DAILY 07/22/19 07/22/19 traMADol HCL 50 mg PO TID 07/22/19 07/22/19 Previous Rx's Medication Instructions Recorded Metoprolol Tartrate [Lopressor] 25 mg PO TID #90 tab 07/26/19 Omeprazole [PriLOSEC] 20 mg PO AC-BRKFST #0 07/26/19 Allergies Allergy/AdvReac Type Severity Reaction Status Date / Time fluticasone propionate AdvReac Rapid Verified 01/03/23 13:45 [From Advair Diskus] Heart Rate prednisone AdvReac Rapid Verified 01/03/23 13:45 Heart Rate salmeterol xinafoate AdvReac Rapid Verified 01/03/23 13:45 [From Advair Diskus] Heart Rate Sulfa (Sulfonamide AdvReac Nausea & Verified 01/03/23 13:45 Antibiotics) Vomiting Review of Systems ROS Statement: Those systems with pertinent positive or pertinent negative responses have been documented in the HPI. ROS Other: All systems not noted in ROS Statement are negative. 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 pt stated -had a pne vaccine 2-3 years ago but not srue of date. History of Any Multi-Drug Resistant Organisms: None Reported Past Surgical History: Appendectomy, Bariatric Surgery, Bowel Resection, Cholecystectomy, Joint Replacement, Orthopedic Surgery Additional Past Surgical History / Comment(s): kenyatta knee replacement, left shoulder rotator cuff, lap band- then removed , gastric sleeve Past Anesthesia/Blood Transfusion Reactions: No Reported Reaction Additional Past Anesthesia/Blood Transfusion Reaction / Comment(s): megan foreman Past Psychological History: Anxiety Smoking Status: Unknown if ever smoked Past Alcohol Use History: None Reported Past Drug Use History: None Reported - Past Family History Mother Family Medical History: Cancer Additional Family Medical History / Comment(s): GALLBLADDER CA Father Family Medical History: Cancer Additional Family Medical History / Comment(s): THROAT/ESOPHAGEAL CA Sister(s) Family Medical History: Cancer Additional Family Medical History / Comment(s): OVARIAN CA Brother(s) Family Medical History: No Reported History (Patient has one brother no major medical problems.) Son(s) Family Medical History: No Reported History (Patient has 3 sons one of them with irritable bowel syndrome) General Exam - General Exam Comments Initial Comments: This is a well-developed well-nourished awake alert oriented 4 female Limitations: no limitations General appearance: alert, anxious Head exam: Present: atraumatic, normocephalic, normal inspection Eye exam: Present: normal appearance, PERRL, EOMI. Absent: scleral icterus, conjunctival injection, periorbital swelling ENT exam: Present: normal exam, mucous membranes moist Neck exam: Present: normal inspection, full ROM, other (No stridor JVD or bruits). Absent: tenderness, meningismus, lymphadenopathy Respiratory exam: Present: normal lung sounds bilaterally. Absent: respiratory distress, wheezes, rales, rhonchi, stridor Cardiovascular Exam: Present: regular rate, normal rhythm, normal heart sounds. Absent: systolic murmur, diastolic murmur, rubs, gallop, clicks GI/Abdominal exam: Present: soft, normal bowel sounds. Absent: distended, tenderness, guarding, rebound, rigid, bruit, pulsatile mass Rectal exam: Present: normal rectal tone, bloody stool (Burgundy-colored stool no masses Hemoccult not indicated due to obvious gross blood) Extremities exam: Present: normal inspection, full ROM, normal capillary refill. Absent: tenderness, pedal edema, joint swelling, calf tenderness Back exam: Present: normal inspection Neurological exam: Present: alert, oriented X3, CN II-XII intact Psychiatric exam: Present: normal affect, normal mood Skin exam: Present: warm, dry, intact, pallor. Absent: rash Course Vital Signs 01/03/23 01/03/23 01/03/23 13:40 13:58 14:50 Temperature 98.7 F Pulse Rate 96 101 H 92 Respiratory 18 14 12 Rate Blood Pressure 149/116 133/71 119/90 O2 Sat by Pulse 98 98 99 Oximetry 01/03/23 15:46 Temperature 98.7 F Pulse Rate 91 Respiratory 18 Rate Blood Pressure 122/84 O2 Sat by Pulse Oximetry Medical Decision Making - Medical Decision Making I did discuss the findings with the patient as well as with HER-2 sons were present. Patient does have evidence of a GI bleed with symptomatic response initially blood pressure 80/56 this has improved the patient is in process of getting blood right now. There is no GI coverage here today the patient wasn't has agree to be transferred to [facility] for further evaluation and treatment I did discuss case with Dr. Tang who is agreed to accept the patient year to ER.Was pt. sent in by a medical professional or institution (, PA, GRINDER OPERATOR, urgent care, hospital, or penitentiary...) When possible be specific @ -No Did you speak to anyone other than the patient for history (EMS, parent, family, police, friend...)? What history was obtained from this source @ -EMS personnel Did you review nursing and triage notes (agree or disagree)? Why? @ -I reviewed and agree with nursing and triage notes Were old charts reviewed (outside hosp., previous admission, EMS record, old EKG, old radiological studies, urgent care reports/EKG's, penitentiary records)? Report findings @ -Several old charts were reviewed Differential Diagnosis (chest pain, altered mental status, abdominal pain women, abdominal pain men, vaginal bleeding, weakness, fever, dyspnea, syncope, headache, dizziness, GI bleed, back pain, seizure, CVA, palpatations, mental health, musculoskeletal)? @ -GI bleed, upper versus lower, dizziness, weakness EKG interpreted by me (3pts min.). @ -As above X-rays interpreted by me (1pt min.). @ -As above CT interpreted by me (1pt min.). @ -None done U/S interpreted by me (1pt. min.). @ -None done What testing was considered but not performed or refused? (CT, X-rays, U/S, labs)? Why? @ -None What meds were considered but not given or refused? Why? @ -None Did you discuss the management of the patient with other professionals (prof whittaker i.e. , PA, GRINDER OPERATOR, lab, RT, psych nurse, high school social studies teacher, corrugated fastener driver, teacher, school services officer, catalytic case operator)? Give summary @ -Dr. Tang Was smoking cessation discussed for >3mins.? @ -No Was critical care preformed (if so, how long)? @ -39 minutes which included multiple re-evaluations the patient discussed with paramedics upon arrival including multiple discussion with family members. Discussion with the paramedics prior to discharge additionally discussion with the receiving facility physician. Were there social determinants of health that impacted care today? How? (Homele ssness, low income, unemployed, alcoholism, drug addiction, transportation, low edu. Level, literacy, decrease access to med. care, [facility], rehab)? @ -No Was there de-escalation of care discussed even if they declined (Discuss DNR or withdrawal of care, Hospice)? DNR status @ -No What co-morbidities impacted this encounter? (DM, HTN, Smoking, COPD, CAD, Cancer, CVA, ARF, Chemo, Hep., AIDS, mental health diagnosis, sleep apnea, morbid obesity)? @ -Prior bariatric surgery, history of diverticulosis, prior history of GI bleed, history of reflux disease history of anemia Was patient admitted / discharged? Hospital course, mention meds given and route, prescriptions, significant lab abnormalities, going to OR and other pertinent info. @ -hospital course the patient was transferred to [facility] for further evaluation and higher level of care Undiagnosed new problem with uncertain prognosis? @ -GI bleeding Drug Therapy requiring intensive monitoring for toxicity (Heparin, Nitro, Insulin, Cardizem)? @ -Blood transfusion Were any procedures done? @ -Rectal exam Diagnosis/symptom? @ -Symptomatic GI bleed, anemia Acute, or Chronic, or Acute on Chronic? @ -Acute Uncomplicated (without systemic symptoms) or Complicated (systemic symptoms)? @ -Complicated Side effects of treatment? @ -No Exacerbation, Progression, or Severe Exacerbation? @ -No Poses a threat to life or bodily function? How? (Chest pain, [place], [place], pneumonia, PE, COPD, DKA, ARF, appy, cholecystitis, CVA, Diverticulitis, Homicidal, Suicidal, threat to staff... and all critical care pts) @ -Yes if not fully evaluated and treated, GI bleed, history of diverticulosis, history of bariatric surgery, weakness, dizziness - Lab Data Result diagrams: 01/03/23 13:51 01/03/23 13:43 Lab Results 01/03/23 01/03/23 01/03/23 Range/Units 13:43 13:43 13:43 WBC (3.8-10.6) k/uL RBC (3.80-5.40) m/uL Hgb (11.4-16.0) gm/dL Hct (34.0-46.0) % MCV (80.0-100.0) fL MCH (25.0-35.0) pg MCHC (31.0-37.0) g/dL RDW (11.5-15.5) % Plt Count (150-450) k/uL MPV Neutrophils % % Lymphocytes % % Monocytes % % Eosinophils % % Basophils % % Neutrophils # (1.3-7.7) k/uL Lymphocytes # (1.0-4.8) k/uL Monocytes # (0-1.0) k/uL Eosinophils # (0-0.7) k/uL Basophils # (0-0.2) k/uL Hypochromasia PT 11.7 (9.0-12.0) sec INR 1.1 (<1.2) APTT 21.2 L (22.0-30.0) sec Sodium 139 (137-145) mmol/L Potassium 4.7 (3.5-5.1) mmol/L Chloride 109 H (98-107) mmol/L Carbon Dioxide 23 (22-30) mmol/L Anion Gap 7 mmol/L BUN 17 (7-17) mg/dL Creatinine 0.60 (0.52-1.04) mg/dL Est GFR (CKD-EPI)AfAm >90 (>60 ml/min/1.73 sqM) Est GFR (CKD-EPI)NonAf >90 (>60 ml/min/1.73 sqM) Glucose 182 H (74-99) mg/dL Calcium 7.7 L (8.4-10.2) mg/dL Magnesium 1.6 (1.6-2.3) mg/dL Total Bilirubin 0.2 (0.2-1.3) mg/dL AST 19 (14-36) U/L ALT 19 (4-34) U/L Alkaline Phosphatase 94 (38-126) U/L Troponin I <0.012 (0.000-0.034) ng/mL Total Protein 5.3 L (6.3-8.2) g/dL Albumin 2.8 L (3.5-5.0) g/dL Lipase 74 (23-300) U/L Blood Type Blood Type Recheck Bld Type Recheck Status Antibody Screen Crossmatch Spec Expiration Date 01/03/23 01/03/23 Range/Units 13:43 13:51 WBC 9.2 (3.8-10.6) k/uL RBC 3.27 L (3.80-5.40) m/uL Hgb 9.2 L D (11.4-16.0) gm/dL Hct 28.6 L (34.0-46.0) % MCV 87.4 (80.0-100.0) fL MCH 28.3 (25.0-35.0) pg MCHC 32.3 (31.0-37.0) g/dL RDW 13.6 (11.5-15.5) % Plt Count 359 (150-450) k/uL MPV 7.2 Neutrophils % 72 % Lymphocytes % 21 % Monocytes % 4 % Eosinophils % 1 % Basophils % 0 % Neutrophils # 6.7 (1.3-7.7) k/uL Lymphocytes # 1.9 (1.0-4.8) k/uL Monocytes # 0.3 (0-1.0) k/uL Eosinophils # 0.1 (0-0.7) k/uL Basophils # 0.0 (0-0.2) k/uL Hypochromasia Slight PT (9.0-12.0) sec INR (<1.2) APTT (22.0-30.0) sec Sodium (137-145) mmol/L Potassium (3.5-5.1) mmol/L Chloride (98-107) mmol/L Carbon Dioxide (22-30) mmol/L Anion Gap mmol/L BUN (7-17) mg/dL Creatinine (0.52-1.04) mg/dL Est GFR (CKD-EPI)AfAm (>60 ml/min/1.73 sqM) Est GFR (CKD-EPI)NonAf (>60 ml/min/1.73 sqM) Glucose (74-99) mg/dL Calcium (8.4-10.2) mg/dL Magnesium (1.6-2.3) mg/dL Total Bilirubin (0.2-1.3) mg/dL AST (14-36) U/L ALT (4-34) U/L Alkaline Phosphatase (38-126) U/L Troponin I (0.000-0.034) ng/mL Total Protein (6.3-8.2) g/dL Albumin (3.5-5.0) g/dL Lipase (23-300) U/L Blood Type O Positive Blood Type Recheck O Pos Bld Type Recheck Status No Antibody Screen NEGATIVE Crossmatch See Detail Spec Expiration Date 01/06/2023 7020 - EKG Data -: EKG Interpreted by Me EKG Comments: EKG interpreted by me normal sinus rhythm a 95 appear interval 168 QRS duration 71 QT since QTC 324/[address]-T wave changes seen - Radiology Data Interpreted by me: Imaging interpreted by me KUB and chest x-ray show no acute processes. Critical Care Time Critical Care Time: Yes Total Critical Care Time: 39 Disposition Clinical Impression: Hematochezia, GI bleed, Symptomatic anemia, Weakness, Dizziness, History of bariatric surgery, History of diverticulosis Disposition: OTHER INSTITUTION NOT DEFINED Condition: Fair Referrals: Rajan Henao DO [Primary Care Provider] - 1-2 days Decision Date: 01/03/23 Decision Time: 15:00 - Out of Hospital Transfer - Req. Specs Out of Hospital Transfer - Requested Specifics: Other Emergency Center
[2023-01-03 14:51] LABS: Partial Thromboplastin Time 21.2 sec (22.0-30.0)
--- NOTE | 2023-01-03 14:58 | XR ---
EXAMINATION TYPE: XR chest 2V DATE OF EXAM: 01/03/2023 COMPARISON: 07/23/2019 HISTORY: Hypotension TECHNIQUE: 2 views FINDINGS: Heart and mediastinum are normal. Lungs are clear. Diaphragm is normal. Bony thorax is inta ct. There is some spurring in the lower thoracic spine. IMPRESSION: No active cardiopulmonary disease. Normal heart. No change.
--- NOTE | 2023-01-03 14:59 | XR ---
EXAMINATION TYPE: XR KUB DATE OF EXAM: 01/03/2023 COMPARISON: NONE HISTORY: GI bleeding TECHNIQUE: 3 views FINDINGS: There is no sign of intestinal obstruction or pneumoperitoneum. Fecal pattern is normal. Th ere are clips from cholecystectomy. No evidence of a mass. There are surgical clips over the stomach. IMPRESSION: Nonacute abdomen.
[2023-01-03 16:26] VITALS: PULSE 92; RESP 18
[2023-01-03 17:16] VITALS: BP 112/84; TEMP 98.8
== END 2023-01-03 17:16 | disposition other institution (70) ==
LOC: EC 13:39
DX: K92.1 Melena (principal); D64.9 Anemia, unspecified; J45.909 Unspecified asthma, uncomplicated; E78.5 Hyperlipidemia, unspecified; M79.7 Fibromyalgia; K21.9 Gastro-esophageal reflux disease without esophagitis; F41.9 Anxiety disorder, unspecified; E07.9 Disorder of thyroid, unspecified; M19.90 Unspecified osteoarthritis, unspecified site; Z79.890 Hormone replacement therapy; Z79.51 Long term (current) use of inhaled steroids; Z79.899 Other long term (current) drug therapy; Z98.84 Bariatric surgery status; Z87.19 Personal history of other diseases of the digestive system; Z86.73 Personal history of transient ischemic attack (TIA), and cerebral infarction without residual deficits; Z88.2 Allergy status to sulfonamides; Z88.8 Allergy status to other drugs, medicaments and biological substances; Z90.49 Acquired absence of other specified parts of digestive tract
CPT/HCPCS: 99291 ×2; 96374 ×2; 36430 ×2; 36415; 86900; 86901; 80053; 83690; 83735; 84484; 85025; 85610; 85730; 86850; 86920; 71046; 74018; P9016; C9113

== ENCOUNTER 2023-06-03 15:03 | Inpatient (IN) | payer MEDICARE, OTHER ==
[2023-06-03] MEDS ORDERED: PANTOPRAZOLE 40 MG/10 ML VIAL IVP STA (15:34)
[2023-06-03 16:15] LABS: Anisocytosis Slight; Basophils % (A) 0 %; Eosinophils # (A) 0.1 k/uL (0-0.7); Eosinophils % (A) 1 %; HCT 30.7 % (34.0-46.0); Hypochromasia Slight; Lymphocytes # (A) 1.8 k/uL (1.0-4.8); Lymphocytes % (A) 17 %; MCH 24.5 pg (25.0-35.0); MCHC 32.6 g/dL (31.0-37.0); MCV 75.1 fL (80.0-100.0); Mean Platelet Volume 7.1; Microcytosis Moderate; Monocytes # (A) 0.4 k/uL (0-1.0); Monocytes % (A) 4 %; Neutrophils # (A) 8.1 k/uL (1.3-7.7); Neutrophils % (A) 77 %; Platelet Count 344 k/uL (150-450); RBC 4.08 m/uL (3.80-5.40); WBC 10.5 k/uL (3.8-10.6)
[2023-06-03 16:25] LABS: ALT 17 U/L (4-34); AST 21 U/L (14-36); African American GFR (CKD) >90 (>60 ml/min/1.73 sqM); Albumin 3.3 g/dL (3.5-5.0); Alkaline Phosphatase 124 U/L (38-126); Anion Gap 6 mmol/L; Blood Urea Nitrogen 15 mg/dL (7-17); Calcium 8.4 mg/dL (8.4-10.2); Carbon Dioxide 28 mmol/L (22-30); Chloride 100 mmol/L (98-107); Glucose 141 mg/dL (74-99); Lipase 69 U/L (23-300); Magnesium 1.9 mg/dL (1.6-2.3); Non-African American GFR(CKD) >90 (>60 ml/min/1.73 sqM); Potassium 4.9 mmol/L (3.5-5.1); Sodium 134 mmol/L (137-145); Total Bilirubin 0.4 mg/dL (0.2-1.3); Total Protein 6.3 g/dL (6.3-8.2)
[2023-06-03 16:33] LABS: Partial Thromboplastin Time 22.3 sec (22.0-30.0); Prothrombin Time 10.4 sec (9.0-12.0)
[2023-06-03] MEDS ORDERED: NALOXONE 0.4 MG/ML 1 ML VIAL IV PRN (17:31)
--- NOTE | 2023-06-03 17:31 | ED ---
GI Bleed HPI - General Chief complaint: GI Bleed Stated complaint: GI Bleed Time Seen by Provider: 06/03/23 15:30 Source: EMS Mode of arrival: EMS Limitations: no limitations - History of Present Illness Initial comments: [id number] female past medical history of asthma, CVA, GI bleed presents to the emergency department reporting melenic stools. States that last night she had a few small blood clots with her bowel movement which was soft in nature. States that the clots were maroon in color. She then woke up this morning and was having larger blood clots with some blood in her bed. She has had multiple GI bleeds before in the past. They have been treated to diverticular bleeds. She was seen in December for a GI bleed and sent to [facility]. States that her last colonoscopy was in [address] Boudreaux. She denies history of peptic ulcers. Has generalized abdominal cramping. She denies any hematemesis. No fevers. Denies any rectal pain. She does not take any NSAIDs or drink alcohol. No other alleviating, precipitating or modifying factors - Related Data Home Medications Medication Instructions Recorded Confirmed ALPRAZolam [Xanax] 1.5 mg PO BID 12/20/15 07/22/19 Cholecalciferol [Vitamin D3 (25 5,000 unit PO HS 12/20/15 07/22/19 Mcg = 1000 Iu)] Cyanocobalamin (Vitamin B-12) 5,000 mcg SUBLINGUAL DAILY 12/20/15 07/22/19 [Vitamin B-12] Levothyroxine Sodium [Synthroid] 75 mcg PO DAILY 12/20/15 07/22/19 Loratadine [Claritin] 10 mg PO DAILY 12/20/15 07/22/19 Multivitamins, Thera [Multivitamin 1 tab PO DAILY 12/20/15 07/22/19 (formulary)] Pregabalin [Lyrica] 75 mg PO HS 12/22/16 07/22/19 Butalb/APAP/Caff 50-325-40Mg 1 - 2 tab PO DAILY PRN 02/10/19 07/22/19 [Fioricet 50-325-40] DULoxetine HCL [Cymbalta] 60 mg PO HS 02/10/19 07/22/19 Ferrous Sulfate [Iron (65 MG 325 mg PO DAILY 02/10/19 07/22/19 Elemental)] Furosemide [Lasix] 20 mg PO DAILY 02/10/19 07/22/19 Acetaminophen [Tylenol Arthritis] 1,300 mg PO BID 07/22/19 07/22/19 Beclomethasone Dip 80 Mcg/Puff 1 puff INHALATION RT-BID 07/22/19 07/22/19 [Qvar 80 mcg] DULoxetine HCL [Cymbalta] 30 mg PO DAILY 07/22/19 07/22/19 Lidocaine Patch Unknown Dose 1 patch TOPICAL DAILY PRN 07/22/19 07/22/19 Propylene Glycol/Peg 400/Pf 1 dropper BOTH EYES DAILY 07/22/19 07/22/19 [Systane 0.3-0.4% Ophth Dropperette] Zinc 50 mg PO DAILY 07/22/19 07/22/19 traMADol HCL 50 mg PO TID 07/22/19 07/22/19 Previous Rx's Medication Instructions Recorded Metoprolol Tartrate [Lopressor] 25 mg PO TID #90 tab 07/26/19 Omeprazole [PriLOSEC] 20 mg PO AC-BRKFST #0 07/26/19 Allergies Allergy/AdvReac Type Severity Reaction Status Date / Time fluticasone propionate AdvReac Rapid Verified 01/03/23 13:45 [From Advair Diskus] Heart Rate prednisone AdvReac Rapid Verified 01/03/23 13:45 Heart Rate salmeterol xinafoate AdvReac Rapid Verified 01/03/23 13:45 [From Advair Diskus] Heart Rate Sulfa (Sulfonamide AdvReac Nausea & Verified 01/03/23 13:45 Antibiotics) Vomiting Review of Systems ROS Statement: Those systems with pertinent positive or pertinent negative responses have been documented in the HPI. ROS Other: All systems not noted in ROS Statement are negative. 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 pt stated -had a pne vaccine 2-3 years ago but not srue of date. History of Any Multi-Drug Resistant Organisms: None Reported Past Surgical History: Appendectomy, Bariatric Surgery, Bowel Resection, Cholecystectomy, Joint Replacement, Orthopedic Surgery Additional Past Surgical History / Comment(s): kenyatta knee replacement, left shoulder rotator cuff, lap band- then removed , gastric sleeve Past Anesthesia/Blood Transfusion Reactions: No Reported Reaction Additional Past Anesthesia/Blood Transfusion Reaction / Comment(s): clausterphobia Past Psychological History: Anxiety, Panic Disorder Smoking Status: Unknown if ever smoked Past Alcohol Use History: None Reported Past Drug Use History: None Reported - Past Family History Mother Family Medical History: Cancer Additional Family Medical History / Comment(s): GALLBLADDER CA Father Family Medical History: Cancer Additional Family Medical History / Comment(s): THROAT/ESOPHAGEAL CA Sister(s) Family Medical History: Cancer Additional Family Medical History / Comment(s): OVARIAN CA Brother(s) Family Medical History: No Reported History (Patient has one brother no major medical problems.) Son(s) Family Medical History: No Reported History (Patient has 3 sons one of them with irritable bowel syndrome) General Exam Limitations: no limitations General appearance: alert, in no apparent distress Head exam: Present: atraumatic, normocephalic, normal inspection Eye exam: Present: normal appearance, PERRL, EOMI. Absent: scleral icterus, conjunctival injection, periorbital swelling ENT exam: Present: normal exam, mucous membranes moist Neck exam: Present: normal inspection. Absent: tenderness, meningismus, lymphadenopathy Respiratory exam: Present: normal lung sounds bilaterally. Absent: respiratory distress, wheezes, rales, rhonchi, stridor Cardiovascular Exam: Present: regular rate, normal rhythm, normal heart sounds. Absent: systolic murmur, diastolic murmur, rubs, gallop, clicks GI/Abdominal exam: Present: soft, normal bowel sounds. Absent: distended, te nderness, guarding, rebound, rigid Rectal exam: Present: normal rectal tone, heme (+) stool, bloody stool. Absent: fecal impaction, mass, tenderness Extremities exam: Present: normal inspection, full ROM, normal capillary refill. Absent: tenderness, pedal edema, joint swelling, calf tenderness Back exam: Present: normal inspection Neurological exam: Present: alert, oriented X3, CN II-XII intact Psychiatric exam: Present: normal affect, normal mood Skin exam: Present: warm, dry, intact, normal color. Absent: rash Course Vital Signs 06/03/23 06/03/23 06/03/23 15:26 15:27 15:30 Temperature 98.3 F Pulse Rate 72 71 70 Respiratory 23 16 24 Rate Blood Pressure 113/59 113/59 O2 Sat by Pulse 95 94 L 94 L Oximetry 06/03/23 06/03/23 06/03/23 16:00 16:30 17:00 Temperature Pulse Rate 70 75 78 Respiratory 22 22 12 Rate Blood Pressure 117/59 119/75 107/58 O2 Sat by Pulse 94 L 94 L 95 Oximetry Medical Decision Making - Medical Decision Making Was pt. sent in by a medical professional or institution (, PA, ELECTRICAL SYSTEMS ENGINEER, urgent care, hospital, or intermediate...) When possible be specific @ -No Did you speak to anyone other than the patient for history (EMS, parent, family, police, friend...)? What history was obtained from this source @ -No Did you review nursing and triage notes (agree or disagree)? Why? @ -I reviewed and agree with nursing and triage notes Were old charts reviewed (outside hosp., previous admission, EMS record, old EKG, old radiological studies, urgent care reports/EKG's, intermediate records)? Report findings @ -I reviewed patient's previous admission from 2019 where she was admitted for GI bleed and had a colonoscopy by Dr. Boudreaux Differential Diagnosis (chest pain, altered mental status, abdominal pain women, abdominal pain men, vaginal bleeding, weakness, fever, dyspnea, syncope, headache, dizziness, GI bleed, back pain, seizure, CVA, palpatations, mental health, musculoskeletal)? @ -Differential GI Bleed: Esophageal varices, aortoenteric fistula, Monika-Hightower, gastritis, peptic ulcer disease, diverticulosis, inflammatory bowel disease, hemorrhoids, fissure, colitis, malignancy, Meckels diverticulum, this is not meant to be an all- inclusive list. EKG interpreted by me (3pts min.). @ -Not done X-rays interpreted by me (1pt min.). @ -None done CT interpreted by me (1pt min.). @ -None done U/S interpreted by me (1pt. min.). @ -None done What testing was considered but not performed or refused? (CT, X-rays, U/S, labs)? Why? @ -CT abdomen however patient does not have any focal tenderness What meds were considered but not given or refused? Why? @ -None Did you discuss the management of the patient with other professionals (professionals i.e. DrNarendra, PA, ELECTRICAL SYSTEMS ENGINEER, lab, RT, psych nurse, social sciences lecturer, crane ladle person, teacher, quarantine officer, case managers)? Give summary @ -Spoke with dr. frost who recommended I speak with Dr. Gordillo. Spoke with Dr. Boudreaux who was agreeable to consult on the patient in the absence of GI Was smoking cessation discussed for >3mins.? @ -No Was critical care preformed (if so, how long)? @ -No Were there social determinants of health that impacted care today? How? (Homelessness, low income, unemployed, alcoholism, drug addiction, transportation, low edu. Level, literacy, decrease access to med. care, snf, rehab)? @ -No Was there de-escalation of care discussed even if they declined (Discuss DNR or withdrawal of care, Hospice)? DNR status @ -No What co-morbidities impacted this encounter? (DM, HTN, Smoking, COPD, CAD, Cancer, CVA, ARF, Chemo, Hep., AIDS, mental health diagnosis, sleep apnea, morbid obesity)? @ -Diverticula Was patient admitted / discharged? Hospital course, mention meds given and route, prescriptions, significant lab abnormalities, going to OR and other pertinent info. @ -Upon arrival patient is placed in room 21. A thorough history and physical exam is performed. Rectal exam is performed which does demonstrate some bright red blood. Occult is positive. Laboratory studies demonstrate a hemoglobin of 10. She has hemolytically stable. She is typed and screened. I called and spoke with Dr. Welsh who recommended that he speak with Dr. Boudreaux. Spoke with Dr. Boudreaux was agreeable to consult on the patient. Recommended that I admit to medicine. She will have repeat CBCs every [address] Mcdaniel who is agreeable to the admission. She remained in stable condition awaiting a bed on the floor Undiagnosed new problem with uncertain prognosis? @ -No Drug Therapy requiring intensive monitoring for toxicity (Heparin, Nitro, I nsulin, Cardizem)? @ -No Were any procedures done? @ -No Diagnosis/symptom? @ -Acute GI bleed, hx diverticular bleed Acute, or Chronic, or Acute on Chronic? @ -Acute Uncomplicated (without systemic symptoms) or Complicated (systemic symptoms)? @ -Complicated Side effects of treatment? @ -No Exacerbation, Progression, or Severe Exacerbation? @ -Yes, recurrence of symptoms Poses a threat to life or bodily function? How? (Chest pain, [place], [place], pneumonia, PE, COPD, DKA, ARF, appy, cholecystitis, CVA, Diverticulitis, Homicidal, Suicid al, threat to staff... and all critical care pts) @ -Yes, patient has been significantly hemolytically unstable due to her GI bleeds - Lab Data Result diagrams: 06/03/23 15:57 06/03/23 15:57 Lab Results 06/03/23 06/03/23 06/03/23 Range/Units 15:57 15:57 15:57 WBC 10.5 (3.8-10.6) k/uL RBC 4.08 (3.80-5.40) m/uL Hgb 10.0 L (11.4-16.0) gm/dL Hct 30.7 L (34.0-46.0) % MCV 75.1 L (80.0-100.0) fL MCH 24.5 L (25.0-35.0) pg MCHC 32.6 (31.0-37.0) g/dL RDW 18.0 H (11.5-15.5) % Plt Count 344 (150-450) k/uL MPV 7.1 Neutrophils % 77 % Lymphocytes % 17 % Monocytes % 4 % Eosinophils % 1 % Basophils % 0 % Neutrophils # 8.1 H (1.3-7.7) k/uL Lymphocytes # 1.8 (1.0-4.8) k/uL Monocytes # 0.4 (0-1.0) k/uL Eosinophils # 0.1 (0-0.7) k/uL Basophils # 0.0 (0-0.2) k/uL Hypochromasia Slight Anisocytosis Slight Microcytosis Moderate PT 10.4 (9.0-12.0) sec INR 1.0 (<1.2) APTT 22.3 (22.0-30.0) sec Sodium 134 L (137-145) mmol/L Potassium 4.9 (3.5-5.1) mmol/L Chloride 100 (98-107) mmol/L Carbon Dioxide 28 (22-30) mmol/L Anion Gap 6 mmol/L BUN 15 (7-17) mg/dL Creatinine 0.59 (0.52-1.04) mg/dL Est GFR (CKD-EPI)AfAm >90 (>60 ml/min/1.73 sqM) Est GFR (CKD-EPI)NonAf >90 (>60 ml/min/1.73 sqM) Glucose 141 H (74-99) mg/dL Plasma Lactic Acid Dominguez (0.7-2.0) mmol/L Calcium 8.4 (8.4-10.2) mg/dL Magnesium 1.9 (1.6-2.3) mg/dL Total Bilirubin 0.4 (0.2-1.3) mg/dL AST 21 (14-36) U/L ALT 17 (4-34) U/L Alkaline Phosphatase 124 (38-126) U/L Troponin I (0.000-0.034) ng/mL Total Protein 6.3 (6.3-8.2) g/dL Albumin 3.3 L (3.5-5.0) g/dL Lipase 69 (23-300) U/L Stool Occult Blood (Negative) Blood Type Blood Type Recheck Bld Type Recheck Status Antibody Screen Spec Expiration Date 06/03/23 06/03/23 06/03/23 Range/Units 15:57 15:57 15:57 WBC (3.8-10.6) k/uL RBC (3.80-5.40) m/uL Hgb (11.4-16.0) gm/dL Hct (34.0-46.0) % MCV (80.0-100.0) fL MCH (25.0-35.0) pg MCHC (31.0-37.0) g/dL RDW (11.5-15.5) % Plt Count (150-450) k/uL MPV Neutrophils % % Lymphocytes % % Monocytes % % Eosinophils % % Basophils % % Neutrophils # (1.3-7.7) k/uL Lymphocytes # (1.0-4.8) k/uL Monocytes # (0-1.0) k/uL Eosinophils # (0-0.7) k/uL Basophils # (0-0.2) k/uL Hypochromasia Anisocytosis Microcytosis PT (9.0-12.0) sec INR (<1.2) APTT (22.0-30.0) sec Sodium (137-145) mmol/L Potassium (3.5-5.1) mmol/L Chloride (98-107) mmol/L Carbon Dioxide (22-30) mmol/L Anion Gap mmol/L BUN (7-17) mg/dL Creatinine (0.52-1.04) mg/dL Est GFR (CKD-EPI)AfAm (>60 ml/min/1.73 sqM) Est GFR (CKD-EPI)NonAf (>60 ml/min/1.73 sqM) Glucose (74-99) mg/dL Plasma Lactic Acid Dominguez 2.2 H* (0.7-2.0) mmol/L Calcium (8.4-10.2) mg/dL Magnesium (1.6-2.3) mg/dL Total Bilirubin (0.2-1.3) mg/dL AST (14-36) U/L ALT (4-34) U/L Alkaline Phosphatase (38-126) U/L Troponin I <0.012 (0.000-0.034) ng/mL Total Protein (6.3-8.2) g/dL Albumin (3.5-5.0) g/dL Lipase (23-300) U/L Stool Occult Blood Positive H (Negative) Blood Type Blood Type Recheck Bld Type Recheck Status Antibody Screen Spec Expiration Date 06/03/23 Range/Units 15:57 WBC (3.8-10.6) k/uL RBC (3.80-5.40) m/uL Hgb (11.4-16.0) gm/dL Hct (34.0-46.0) % MCV (80.0-100.0) fL MCH (25.0-35.0) pg MCHC (31.0-37.0) g/dL RDW (11.5-15.5) % Plt Count (150-450) k/uL MPV Neutrophils % % Lymphocytes % % Monocytes % % Eosinophils % % Basophils % % Neutrophils # (1.3-7.7) k/uL Lymphocytes # (1.0-4.8) k/uL Monocytes # (0-1.0) k/uL Eosinophils # (0-0.7) k/uL Basophils # (0-0.2) k/uL Hypochromasia Anisocytosis Microcytosis PT (9.0-12.0) sec INR (<1.2) APTT (22.0-30.0) sec Sodium (137-145) mmol/L Potassium (3.5-5.1) mmol/L Chloride (98-107) mmol/L Carbon Dioxide (22-30) mmol/L Anion Gap mmol/L BUN (7-17) mg/dL Creatinine (0.52-1.04) mg/dL Est GFR (CKD-EPI)AfAm (>60 ml/min/1.73 sqM) Est GFR (CKD-EPI)NonAf (>60 ml/min/1.73 sqM) Glucose (74-99) mg/dL Plasma Lactic Acid Dominguez (0.7-2.0) mmol/L Calcium (8.4-10.2) mg/dL Magnesium (1.6-2.3) mg/dL Total Bilirubin (0.2-1.3) mg/dL AST (14-36) U/L ALT (4-34) U/L Alkaline Phosphatase (38-126) U/L Troponin I (0.000-0.034) ng/mL Total Protein (6.3-8.2) g/dL Albumin (3.5-5.0) g/dL Lipase (23-300) U/L Stool Occult Blood (Negative) Blood Type O Positive Blood Type Recheck O Pos Bld Type Recheck Status No Antibody Screen NEGATIVE Spec Expiration Date 06/06/2023 - 2356 Disposition Clinical Impression: Melena, Lower GI bleed Disposition: ADMITTED IP TO THIS [facility] Condition: Stable Is patient prescribed a controlled substance at d/c from ED?: No Referrals: Rajan Henao DO [Primary Care Provider] - 1-2 days Time of Disposition: 17:31 Decision to Admit Reason: Admit from EC Decision Date: 06/03/23 Decision Time: 17:31
[2023-06-03] MEDS ORDERED: ACETAMINOPHEN TAB 325 MG TAB PO PRN (17:53)
[2023-06-03] MEDS ORDERED: ONDANSETRON 4 MG/2 ML VIAL IVP PRN (17:53)
[2023-06-03] MEDS ORDERED: traMADol 50 MG TAB PO PRN (17:53)
[2023-06-03] MEDS ORDERED: HYDROmorphone 1 MG/ML 1 ML SYRINGE IVP PRN (17:53)
[2023-06-03] MEDS ORDERED: BUTALB/APAP/CAFF 50-325-40MG TAB PO STA (18:03)
[2023-06-03] MEDS: LORazepam 1 MG TAB PO PRN (20:47)
[2023-06-03 21:18] LABS: Anisocytosis Slight; HCT 29.5 % (34.0-46.0); HGB 9.6 gm/dL (11.4-16.0); Hypochromasia Slight; MCH 24.6 pg (25.0-35.0); MCHC 32.7 g/dL (31.0-37.0); Mean Platelet Volume 6.8; Microcytosis Moderate; Platelet Count 313 k/uL (150-450); RBC 3.93 m/uL (3.80-5.40); RDW 17.9 % (11.5-15.5); WBC 12.9 k/uL (3.8-10.6)
[2023-06-03] MEDS: PANTOPRAZOLE 40 MG/10 ML VIAL IVP SCH (23:24)
[2023-06-04] MEDS ORDERED: ALPRAZolam 0.5 MG TAB PO PRN (00:10)
[2023-06-04] MEDS: DULoxetine HCL 60 MG CAPSULE.DR PO SCH ×2 (01:41→20:36)
[2023-06-04] MEDS: PREGABALIN 75 MG CAP PO SCH ×2 (01:41→20:36)
[2023-06-04] MEDS: DULoxetine HCL 30 MG CAPSULE.DR PO SCH ×2 (01:41→20:36)
[2023-06-04 02:04] LABS: Anisocytosis Slight; HCT 28.8 % (34.0-46.0); HGB 9.1 gm/dL (11.4-16.0); Hypochromasia Moderate; MCHC 31.7 g/dL (31.0-37.0); MCV 75.8 fL (80.0-100.0); Mean Platelet Volume 7.1; Microcytosis Slight; Platelet Count 329 k/uL (150-450); RDW 17.8 % (11.5-15.5); WBC 11.2 k/uL (3.8-10.6)
[2023-06-04] MEDS: LEVOTHYROXINE 75 MCG TAB PO SCH (06:32)
[2023-06-04 06:38] LABS: Anisocytosis Slight; HCT 28.4 % (34.0-46.0); HGB 8.9 gm/dL (11.4-16.0); Hypochromasia Marked; MCH 24.2 pg (25.0-35.0); MCHC 31.4 g/dL (31.0-37.0); MCV 77.2 fL (80.0-100.0); Mean Platelet Volume 7.6; Microcytosis Slight; Platelet Count 388 k/uL (150-450); RBC 3.68 m/uL (3.80-5.40); RDW 17.9 % (11.5-15.5); WBC 15.3 k/uL (3.8-10.6)
[2023-06-04 06:53] LABS: African American GFR (CKD) >90 (>60 ml/min/1.73 sqM); Anion Gap 2 mmol/L; Blood Urea Nitrogen 16 mg/dL (7-17); Calcium 8.2 mg/dL (8.4-10.2); Carbon Dioxide 32 mmol/L (22-30); Chloride 101 mmol/L (98-107); Glucose 135 mg/dL (74-99); Non-African American GFR(CKD) 89 (>60 ml/min/1.73 sqM); Sodium 135 mmol/L (137-145)
[2023-06-04] MEDS ORDERED: NON FORMULARY DRUG (Omeprazole 20 MG Capsule.Dr) PO SCH (09:00)
[2023-06-04] MEDS: PANTOPRAZOLE 40 MG/10 ML VIAL IVP SCH ×2 (09:39→20:38)
--- NOTE | 2023-06-04 11:23 | P.HPIM ---
History of Present Illness 71-year-old female came in with complaint himself bright red blood per rectum, although ER note the documents surgery as melanotic stools because of which patient is on IV Protonix. Patient had history of lower GI bleed in the past and found to have polyps at the time. Patient is not on any anti-correlation patient is bit tachycardic uses metoprolol at home.. Patient had a normal ejection fraction with mild concentric Left foot hypertrophy. Patient hemoglobin admission was 9.6 and came down to 8.9 now, baseline hemoglobin is not clear. Patient had RDW of 17.9 and MCV of 75.8. Patient denied any nausea vomiting or epigastric abdominal pain REVIEW OF SYSTEMS: CONSTITUTIONAL: No fever, no malaise, no fatigue. HEENT: No recent visual problems or hearing problems. Denied any sore throat. CARDIOVASCULAR: No chest pain, orthopnea, PND, no palpitations, no syncope. PULMONARY: No shortness of breath, no cough, no hemoptysis. GASTROINTESTINAL: As mentioned in HPI NEUROLOGICAL: No headaches, no weakness, no numbness. HEMATOLOGICAL: Denies any bleeding or petechiae. GENITOURINARY: Denies any burning micturition, frequency, or urgency. MUSCULOSKELETAL/RHEUMATOLOGICAL: Denies any joint pain, swelling, or any muscle pain. ENDOCRINE: Denies any polyuria or polydipsia. The rest of the 14-point review of systems is negative. PHYSICAL EXAMINATION: GENERAL: The patient is alert and oriented x3, not in any acute distress. Well developed, well nourished. HEENT: Pupils are round and equally reacting to light. EOMI. No scleral icterus. No conjunctival pallor. Normocephalic, atraumatic. No pharyngeal erythema. No thyromegaly. CARDIOVASCULAR: S1 and S2 present. No murmurs, rubs, or gallops. PULMONARY: Chest is clear to auscultation, no wheezing or crackles. ABDOMEN: Soft, nontender, nondistended, normoactive bowel sounds. No palpable organomegaly. MUSCULOSKELETAL: No joint swelling or deformity. EXTREMITIES: No cyanosis, clubbing, or pedal edema. NEUROLOGICAL: Gross neurological examination did not reveal any focal deficits. SKIN: No rashes. Assessment and plan -Lower GI bleed: Patient will undergo lower GI endoscopy patient can use to have blood in the stools then we will repeat hemoglobin today otherwise patient will not require every 6 hourly hemoglobins. Patient presently will not require any blood transfusion at this time. Patient will be started on surfaces history of IV normal saline -Microcytic anemia: Patient had an acute lower GI bleed at this time but that may have some chronic iron deficiency anemia, will obtain serum ferritin and the serum iron levels. -Asthma without any acute exacerbation -Hyperlipidemia next Plan hyperthyroidism next and heparin gases visual reflux disease -Fibromyalgia -Leukocytosis reactive secondary to GI bleed no evidence of infection at this time DVT prophylaxis: No pharmacological DVT prophylaxis as patient has acute the lower GI bleed Past Medical History Past Medical History: Asthma, CVA/TIA, Fibromyalgia, GERD/Reflux, Hyperlipidemia, Musculoskeletal Disorder, Osteoarthritis (OA), Thyroid Disorder Additional Past Medical History / Comment(s): migraines, sarcoidosis, hearburn, hx diverticulosis/gastritis/esophagitis, essential tremors-slight tremor left hand, parkinsons, carpal tunnel,"stroke when i was in my 20's when i was on control-affected non dominant side (lt) ."my whole left side feels numb under the skin", chronic back pain, sciatic nerve pain. pt stated -had a pne vaccine 2-3 years ago but not srue of date. History of Any Multi-Drug Resistant Organisms: None Reported Past Surgical History: Appendectomy, Bariatric Surgery, Bowel Resection, Cholecystectomy, Joint Replacement, Orthopedic Surgery Additional Past Surgical History / Comment(s): kenyatta knee replacement, left shoulder rotator cuff, lap band- then removed , gastric sleeve Past Anesthesia/Blood Transfusion Reactions: No Reported Reaction Additional Past Anesthesia/Blood Transfusion Reaction / Comment(s): clausterphobia Past Psychological History: Anxiety, Panic Disorder Smoking Status: Unknown if ever smoked Past Alcohol Use History: None Reported Past Drug Use History: None Reported - Past Family History Mother Family Medical History: Cancer Additional Family Medical History / Comment(s): GALLBLADDER CA Father Family Medical History: Cancer Additional Family Medical History / Comment(s): THROAT/ESOPHAGEAL CA Sister(s) Family Medical History: Cancer Additional Family Medical History / Comment(s): OVARIAN CA Brother(s) Family Medical History: No Reported History (Patient has one brother no major medical problems.) Son(s) Family Medical History: No Reported History (Patient has 3 sons one of them with irritable bowel syndrome) Medications and Allergies Home Medications Medication Instructions Recorded Confirmed Type ALPRAZolam [Xanax] 0.5 - 1 mg PO BID PRN 12/20/15 06/03/23 History Cholecalciferol [Vitamin D3 (25 5,000 unit PO HS 12/20/15 06/03/23 History Mcg = 1000 Iu)] Cyanocobalamin (Vitamin B-12) 5,000 mcg SUBLINGUAL DAILY 12/20/15 06/03/23 History [Vitamin B-12] Levothyroxine Sodium [Synthroid] 75 mcg PO DAILY 12/20/15 06/03/23 History Loratadine [Claritin] 10 mg PO DAILY 12/20/15 06/03/23 History Multivitamins, Thera [Multivitamin 1 tab PO DAILY 12/20/15 06/03/23 History (formulary)] Pregabalin [Lyrica] 75 mg PO HS 12/22/16 06/03/23 History Butalb/APAP/Caff 50-325-40Mg 1 - 2 tab PO DAILY PRN 02/10/19 06/03/23 History [Fioricet 50-325-40] DULoxetine HCL [Cymbalta] 60 mg PO HS 02/10/19 06/03/23 History Furosemide [Lasix] 20 mg PO DAILY PRN 02/10/19 06/03/23 History DULoxetine HCL [Cymbalta] 30 mg PO HS 07/22/19 06/03/23 History Metoprolol Tartrate [Lopressor] 25 mg PO TID #90 tab 07/26/19 06/03/23 Rx Ascorbic Acid [Vitamin C] 1,000 mg PO DAILY 06/03/23 06/03/23 History Biotin 5 mg PO DAILY 06/03/23 06/03/23 History Glucosa Carter 2Kcl/Chondroitin Carter 1 cap PO DAILY 06/03/23 06/03/23 History [Glucosamine-Chondroitin Cap] Glucosa Carter 2Kcl/Chondroitin Carter 2 cap PO HS 06/03/23 06/03/23 History [Glucosamine-Chondroitin Cap] Omeprazole [PriLOSEC] 20 mg PO BID 06/03/23 06/03/23 History Vitamin B Complex 1 cap PO DAILY 06/03/23 06/03/23 History Allergies Allergy/AdvReac Type Severity Reaction Status Date / Time fluticasone propionate AdvReac Rapid Verified 06/03/23 18:45 [From Advair Diskus] Heart Rate prednisone AdvReac Rapid Verified 06/03/23 18:45 Heart Rate salmeterol xinafoate AdvReac Rapid Verified 06/03/23 18:45 [From Advair Diskus] Heart Rate Sulfa (Sulfonamide AdvReac Nausea & Verified 06/03/23 18:45 Antibiotics) Vomiting Physical Exam Vitals: Vital Signs Temp Pulse Resp BP Pulse Ox 06/04/23 09:00 98.1 F 101 H 18 119/65 97 06/04/23 07:43 84 16 105/54 94 L 06/04/23 06:14 89 18 127/60 96 06/04/23 01:43 82 18 119/54 94 L 06/03/23 20:30 97 36 H 128/84 92 L 06/03/23 20:00 87 24 115/69 06/03/23 19:30 88 21 135/121 92 L 06/03/23 19:00 86 7 L 119/77 86 L 06/03/23 18:30 76 22 90 L 06/03/23 18:00 74 13 102/46 95 06/03/23 17:30 73 15 112/50 94 L 06/03/23 17:00 78 12 107/58 95 06/03/23 16:30 75 22 119/75 94 L 06/03/23 16:00 70 22 117/59 94 L 06/03/23 15:30 70 24 113/59 94 L 06/03/23 15:27 98.3 F 71 16 113/59 94 L 06/03/23 15:26 72 23 95 Intake and Output 06/03/23 06/04/23 06/04/23 22:59 06:59 14:59 Other: Weight 120.202 kg Results CBC & Chem 7: 06/04/23 06:18 06/04/23 05:49 Labs: Abnormal Lab Results - Last 24 Hours (Table) 06/03/23 06/03/23 06/03/23 Range/Units 15:57 15:57 15:57 WBC (3.8-10.6) k/uL RBC (3.80-5.40) m/uL Hgb 10.0 L (11.4-16.0) gm/dL Hct 30.7 L (34.0-46.0) % MCV 75.1 L (80.0-100.0) fL MCH 24.5 L (25.0-35.0) pg RDW 18.0 H (11.5-15.5) % Neutrophils # 8.1 H (1.3-7.7) k/uL Sodium 134 L (137-145) mmol/L Carbon Dioxide (22-30) mmol/L Glucose 141 H (74-99) mg/dL Plasma Lactic Acid Dominguez 2.2 H* (0.7-2.0) mmol/L Calcium (8.4-10.2) mg/dL Albumin 3.3 L (3.5-5.0) g/dL Stool Occult Blood (Negative) 06/03/23 06/03/23 06/04/23 Range/Units 15:57 21:06 01:54 WBC 12.9 H 11.2 H (3.8-10.6) k/uL RBC (3.80-5.40) m/uL Hgb 9.6 L 9.1 L (11.4-16.0) gm/dL Hct 29.5 L 28.8 L (34.0-46.0) % MCV 75.0 L 75.8 L (80.0-100.0) fL MCH 24.6 L 24.0 L (25.0-35.0) pg RDW 17.9 H 17.8 H (11.5-15.5) % Neutrophils # (1.3-7.7) k/uL Sodium (137-145) mmol/L Carbon Dioxide (22-30) mmol/L Glucose (74-99) mg/dL Plasma Lactic Acid Dominguez (0.7-2.0) mmol/L Calcium (8.4-10.2) mg/dL Albumin (3.5-5.0) g/dL Stool Occult Blood Positive H (Negative) 06/04/23 06/04/23 Range/Units 05:49 06:18 WBC 15.3 H (3.8-10.6) k/uL RBC 3.68 L (3.80-5.40) m/uL Hgb 8.9 L (11.4-16.0) gm/dL Hct 28.4 L (34.0-46.0) % MCV 77.2 L (80.0-100.0) fL MCH 24.2 L (25.0-35.0) pg RDW 17.9 H (11.5-15.5) % Neutrophils # (1.3-7.7) k/uL Sodium 135 L (137-145) mmol/L Carbon Dioxide 32 H (22-30) mmol/L Glucose 135 H (74-99) mg/dL Plasma Lactic Acid Dominguez (0.7-2.0) mmol/L Calcium 8.2 L (8.4-10.2) mg/dL Albumin (3.5-5.0) g/dL Stool Occult Blood (Negative)
[2023-06-04] MEDS: SODIUM CHLORIDE 0.9% 1,000 ML IV SCH (12:03)
[2023-06-04] MEDS: METOPROLOL TARTRATE 25 MG TAB PO SCH ×2 (12:03→20:36)
[2023-06-04] MEDS ORDERED: IOPAMIDOL CONTRAST (ORAL USE) VIAL PO PRN (14:40)
--- NOTE | 2023-06-04 16:46 | CT ---
EXAMINATION TYPE: CT abdomen pelvis w con CT DLP: 2506.1 mGycm, Automated exposure control for dose reduction was used. DATE OF EXAM: 06/04/2023 4:37 PM COMPARISON: None CLINICAL INDICATION:Female, 72 years old with history of abdominal pain, leukocytosis; abdominal pain , leukocytosis TECHNIQUE: Standard CT of the abdomen and pelvis following the administration of 100 cc of Isovue 3 00 IV contrast material and oral contrast. Coronal and sagittal reformats were performed. FINDINGS: LOWER CHEST: Unremarkable ABDOMEN LIVER: Unremarkable GALLBLADDER AND BILE DUCTS: The gallbladder is surgically absent. No biliary duct dilatation. PANCREAS: Unremarkable. SPLEEN: Unremarkable. ADRENAL GLANDS: Unremarkable. KIDNEYS AND URETERS: No evidence of hydronephrosis or renal calculus. The kidneys enhance symmetrical ly. Bilateral renal cysts identified with largest in the superior pole the left kidney measuring up t o 7.5 cm. PELVIS BLADDER: Distended, limiting evaluation. REPRODUCTIVE: Unremarkable. ABDOMEN & PELVIS STOMACH AND BOWEL: Postsurgical changes from gastric sleeve with small lateral hernia. Enteric contra st reaches the rectum. Distal colonic diverticulosis without evidence for acute diverticulitis. No fo saadia bowel wall thickening or surrounding inflammatory changes. No evidence of bowel obstruction. PERITONEUM: No evidence of pneumoperitoneum or free fluid. No organized fluid collection. VASCULATURE: No evidence of aortic aneurysm. MUSCULOSKELETAL: No acute osseous abnormalities. Mild to moderate disc degeneration changes are prese nt throughout the thoracolumbar spine.. Grade 1 anterolisthesis of L4 on L5 without evidence of pars defects. Sacralization of L5. LYMPH NODES: No gross evidence for lymphadenopathy. SOFT TISSUE/ABDOMINAL WALL: Small umbilical hernia containing fat and portion of nonobstructive small bowel. IMPRESSION: 1. No acute abdominal/pelvic process. 2. Colonic diverticulosis without evidence for acute diverticulosis. 3. Small umbilical hernia containing fat and nonobstructive small bowel.
--- NOTE | 2023-06-04 16:52 | P.GSCN ---
History of Present Illness Consult date: 06/04/23 History of present illness: CHIEF COMPLAINT: GI bleed HISTORY OF PRESENT ILLNESS: This is a 72-year-old female who presented to the hospital with complaints of a GI bleed. Thursday afternoon she started with bright red blood per rectum and then started to have blood clots and stools became black. Patient reports that she is still had bloody bowel movements while in the ER. Patient does have a prior history of diverticular bleed 2. Patient has past surgical history of colon resection in 2008 which she thinks is related to a GI bleed as well as a history of sleep gastrectomy. Her last colonoscopy was in July 2019 which had shown diverticulosis and a right colon polyp and had EGD in July 2019 which was normal. Patient's hemoglobin was 10 on admission is trended down to 8.9. She remains on IV Protonix. White count has increased to 15. She's had some mild mid abdominal discomfort that has not improved. Denies any nausea or vomiting. She also reports passing blood with flatus. Patient denies any NSAID use. She denies pain on any blood thinners. PAST MEDICAL HISTORY: See below PAST SURGICAL HISTORY: See below MEDICATIONS: See below ALLERGIES: See below SOCIAL HISTORY: No illicit drug use. REVIEW OF SYSTEMS: CONSTITUTIONAL: Denies fever or chills. HEENT: Denies blurred vision, vision changes, or eye pain. Denies hemoptysis CARDIOVASCULAR: Denies chest pain or pressure. RESPIRATORY: No shortness of breath. GASTROINTESTINAL: See HPI for pertinent findings HEMATOLOGIC: Denies bleeding disorders. GENITOURINARY: Denies any blood in urine or increased urinary frequency. SKIN: Denies pruitis. Denies rash. PHYSICAL EXAM: VITAL SIGNS: Reviewed GENERAL: Well-developed in no acute distress. HEENT: No sclera icterus. Extraocular movements grossly intact. Moist buccal mucosa. Head is atraumatic, normocephalic. No nasal drainage. ABDOMEN: Soft. Nondistended. Nontender NEUROLOGIC: Alert and oriented. Cranial nerves II through XII grossly intact. LABORATORY DATA: WBC 15.3 Hgb 8.9 platelets 388 Sodium 135 potassium is 5.0 creatinine 0.64 Lactic acid 2.2 down to 0.8 IMAGING: ASSESSMENT: 1. Acute GI bleed 2. Acute blood loss anemia 3. History of diverticular bleed PLAN: -Patient scheduled for EGD and colonoscopy on 06/08/[address] Boudreaux -Start patient on clear liquid diet -Computed tomography scan abdomen and pelvis with contrast ordered -Continue IV fluids -Continue IV Protonix -Continue monitoring hemoglobin -Continue monitoring for any signs or symptoms of bleeding Physician Accounting File Clerk note has been reviewed by physician. Signing provider agrees with the documented findings, assessment, and plan of care. Past Medical History Past Medical History: Asthma, CVA/TIA, Fibromyalgia, GERD/Reflux, Hyperlipidemia, Musculoskeletal Disorder, Osteoarthritis (OA), Thyroid Disorder Additional Past Medical History / Comment(s): migraines, sarcoidosis, hearburn, hx diverticulosis/gastritis/esophagitis, essential tremors-slight tremor left hand, parkinsons, carpal tunnel,"stroke when i was in my 20's when i was on bi rth control-affected non dominant side (lt) ."my whole left side feels numb under the skin", chronic back pain, sciatic nerve pain. pt stated -had a pne vaccine 2-3 years ago but not srue of date. History of Any Multi-Drug Resistant Organisms: None Reported Past Surgical History: Appendectomy, Bariatric Surgery, Bowel Resection, Cholecystectomy, Joint Replacement, Orthopedic Surgery Additional Past Surgical History / Comment(s): kenyatta knee replacement, left shoulder rotator cuff, lap band- then removed , gastric sleeve Past Anesthesia/Blood Transfusion Reactions: No Reported Reaction Additional Past Anesthesia/Blood Transfusion Reaction / Comm: clausterphobia Past Psychological History: Anxiety, Panic Disorder Smoking Status: Unknown if ever smoked Past Alcohol Use History: None Reported Past Drug Use History: None Reported - Past Family History Mother Family Medical History: Cancer Additional Family Medical History / Comment(s): GALLBLADDER CA Father Family Medical History: Cancer Additional Family Medical History / Comment(s): THROAT/ESOPHAGEAL CA Sister(s) Family Medical History: Cancer Additional Family Medical History / Comment(s): OVARIAN CA Brother(s) Family Medical History: No Reported History (Patient has one brother no major medical problems.) Son(s) Family Medical History: No Reported History (Patient has 3 sons one of them with irritable bowel syndrome) Medications and Allergies Home Medications Medication Instructions Recorded Confirmed Type ALPRAZolam [Xanax] 0.5 - 1 mg PO BID PRN 12/20/15 06/03/23 History Cholecalciferol [Vitamin D3 (25 5,000 unit PO HS 12/20/15 06/03/23 History Mcg = 1000 Iu)] Cyanocobalamin (Vitamin B-12) 5,000 mcg SUBLINGUAL DAILY 12/20/15 06/03/23 History [Vitamin B-12] Levothyroxine Sodium [Synthroid] 75 mcg PO DAILY 12/20/15 06/03/23 History Loratadine [Claritin] 10 mg PO DAILY 12/20/15 06/03/23 History Multivitamins, Thera [Multivitamin 1 tab PO DAILY 12/20/15 06/03/23 History (formulary)] Pregabalin [Lyrica] 75 mg PO HS 12/22/16 06/03/23 History Butalb/APAP/Caff 50-325-40Mg 1 - 2 tab PO DAILY PRN 02/10/19 06/03/23 History [Fioricet 50-325-40] DULoxetine HCL [Cymbalta] 60 mg PO HS 02/10/19 06/03/23 History Furosemide [Lasix] 20 mg PO DAILY PRN 02/10/19 06/03/23 History DULoxetine HCL [Cymbalta] 30 mg PO HS 07/22/19 06/03/23 History Metoprolol Tartrate [Lopressor] 25 mg PO TID #90 tab 07/26/19 06/03/23 Rx Ascorbic Acid [Vitamin C] 1,000 mg PO DAILY 06/03/23 06/03/23 History Biotin 5 mg PO DAILY 06/03/23 06/03/23 History Glucosa Carter 2Kcl/Chondroitin Carter 1 cap PO DAILY 06/03/23 06/03/23 History [Glucosamine-Chondroitin Cap] Glucosa Carter 2Kcl/Chondroitin Carter 2 cap PO HS 06/03/23 06/03/23 History [Glucosamine-Chondroitin Cap] Omeprazole [PriLOSEC] 20 mg PO BID 06/03/23 06/03/23 History Vitamin B Complex 1 cap PO DAILY 06/03/23 06/03/23 History Allergies Allergy/AdvReac Type Severity Reaction Status Date / Time fluticasone propionate AdvReac Rapid Verified 06/03/23 18:45 [From Advair Diskus] Heart Rate prednisone AdvReac Rapid Verified 06/03/23 18:45 Heart Rate salmeterol xinafoate AdvReac Rapid Verified 06/03/23 18:45 [From Advair Diskus] Heart Rate Sulfa (Sulfonamide AdvReac Nausea & Verified 06/03/23 18:45 Antibiotics) Vomiting Surgical - Exam Vital Signs Pulse Resp Pulse Ox 72 23 95 06/03/23 15:26 06/03/23 15:26 06/03/23 15:26 Results - Labs 06/04/23 06:18 06/04/23 05:49 Abnormal Lab Results - Last 24 Hours (Table) 06/03/23 06/03/23 06/03/23 Range/Units 15:57 15:57 15:57 WBC (3.8-10.6) k/uL RBC (3.80-5.40) m/uL Hgb 10.0 L (11.4-16.0) gm/dL Hct 30.7 L (34.0-46.0) % MCV 75.1 L (80.0-100.0) fL MCH 24.5 L (25.0-35.0) pg RDW 18.0 H (11.5-15.5) % Neutrophils # 8.1 H (1.3-7.7) k/uL Sodium 134 L (137-145) mmol/L Carbon Dioxide (22-30) mmol/L Glucose 141 H (74-99) mg/dL Plasma Lactic Acid Dominguez 2.2 H* (0.7-2.0) mmol/L Calcium (8.4-10.2) mg/dL Albumin 3.3 L (3.5-5.0) g/dL Stool Occult Blood (Negative) 06/03/23 06/03/23 06/04/23 Range/Units 15:57 21:06 01:54 WBC 12.9 H 11.2 H (3.8-10.6) k/uL RBC (3.80-5.40) m/uL Hgb 9.6 L 9.1 L (11.4-16.0) gm/dL Hct 29.5 L 28.8 L (34.0-46.0) % MCV 75.0 L 75.8 L (80.0-100.0) fL MCH 24.6 L 24.0 L (25.0-35.0) pg RDW 17.9 H 17.8 H (11.5-15.5) % Neutrophils # (1.3-7.7) k/uL Sodium (137-145) mmol/L Carbon Dioxide (22-30) mmol/L Glucose (74-99) mg/dL Plasma Lactic Acid Dominguez (0.7-2.0) mmol/L Calcium (8.4-10.2) mg/dL Albumin (3.5-5.0) g/dL Stool Occult Blood Positive H (Negative) 06/04/23 06/04/23 Range/Units 05:49 06:18 WBC 15.3 H (3.8-10.6) k/uL RBC 3.68 L (3.80-5.40) m/uL Hgb 8.9 L (11.4-16.0) gm/dL Hct 28.4 L (34.0-46.0) % MCV 77.2 L (80.0-100.0) fL MCH 24.2 L (25.0-35.0) pg RDW 17.9 H (11.5-15.5) % Neutrophils # (1.3-7.7) k/uL Sodium 135 L (137-145) mmol/L Carbon Dioxide 32 H (22-30) mmol/L Glucose 135 H (74-99) mg/dL Plasma Lactic Acid Dominguez (0.7-2.0) mmol/L Calcium 8.2 L (8.4-10.2) mg/dL Albumin (3.5-5.0) g/dL Stool Occult Blood (Negative) Diabetes panel 06/03/23 06/04/23 Range/Units 15:57 05:49 Sodium 134 L 135 L (137-145) mmol/L Potassium 4.9 5.0 (3.5-5.1) mmol/L Chloride 100 101 (98-107) mmol/L Carbon Dioxide 28 32 H (22-30) mmol/L BUN 15 16 (7-17) mg/dL Creatinine 0.59 0.64 (0.52-1.04) mg/dL Glucose 141 H 135 H (74-99) mg/dL Calcium 8.4 8.2 L (8.4-10.2) mg/dL AST 21 (14-36) U/L ALT 17 (4-34) U/L Alkaline Phosphatase 124 (38-126) U/L Total Protein 6.3 (6.3-8.2) g/dL Albumin 3.3 L (3.5-5.0) g/dL Calcium panel 06/03/23 06/04/23 Range/Units 15:57 05:49 Calcium 8.4 8.2 L (8.4-10.2) mg/dL Albumin 3.3 L (3.5-5.0) g/dL Pituitary panel 06/03/23 06/04/23 Range/Units 15:57 05:49 Sodium 134 L 135 L (137-145) mmol/L Potassium 4.9 5.0 (3.5-5.1) mmol/L Chloride 100 101 (98-107) mmol/L Carbon Dioxide 28 32 H (22-30) mmol/L BUN 15 16 (7-17) mg/dL Creatinine 0.59 0.64 (0.52-1.04) mg/dL Glucose 141 H 135 H (74-99) mg/dL Calcium 8.4 8.2 L (8.4-10.2) mg/dL Adrenal panel 06/03/23 06/04/23 Range/Units 15:57 05:49 Sodium 134 L 135 L (137-145) mmol/L Potassium 4.9 5.0 (3.5-5.1) mmol/L Chloride 100 101 (98-107) mmol/L Carbon Dioxide 28 32 H (22-30) mmol/L BUN 15 16 (7-17) mg/dL Creatinine 0.59 0.64 (0.52-1.04) mg/dL Glucose 141 H 135 H (74-99) mg/dL Calcium 8.4 8.2 L (8.4-10.2) mg/dL Total Bilirubin 0.4 (0.2-1.3) mg/dL AST 21 (14-36) U/L ALT 17 (4-34) U/L Alkaline Phosphatase 124 (38-126) U/L Total Protein 6.3 (6.3-8.2) g/dL Albumin 3.3 L (3.5-5.0) g/dL
[2023-06-04] MEDS: LORazepam 1 MG TAB PO PRN (20:36)
[2023-06-04 23:47] LABS: % Iron Saturation 8.51 (12.00-45.00)
[2023-06-05] MEDS: LEVOTHYROXINE 75 MCG TAB PO SCH (05:26)
[2023-06-05] MEDS: SODIUM CHLORIDE 0.9% 1,000 ML IV SCH (05:27)
[2023-06-05] MEDS: METOPROLOL TARTRATE 25 MG TAB PO SCH (10:01)
[2023-06-05] MEDS: PANTOPRAZOLE 40 MG/10 ML VIAL IVP SCH ×2 (10:01→22:20)
[2023-06-05 10:29] LABS: Anisocytosis Slight; HCT 22.4 % (34.0-46.0); Hypochromasia Marked; MCH 24.2 pg (25.0-35.0); MCHC 31.2 g/dL (31.0-37.0); MCV 77.5 fL (80.0-100.0); Mean Platelet Volume 7.6; Microcytosis Slight; Platelet Count 325 k/uL (150-450); RDW 18.5 % (11.5-15.5); WBC 10.5 k/uL (3.8-10.6)
[2023-06-05 10:55] LABS: African American GFR (CKD) 89 (>60 ml/min/1.73 sqM); Anion Gap 5 mmol/L; Blood Urea Nitrogen 17 mg/dL (7-17); Carbon Dioxide 29 mmol/L (22-30); Chloride 99 mmol/L (98-107); Glucose 146 mg/dL (74-99); Non-African American GFR(CKD) 77 (>60 ml/min/1.73 sqM); Sodium 133 mmol/L (137-145)
[2023-06-05] MEDS ORDERED: PEG 3350 (236 GM/BTL) + LYTES 4,000 ML BOTTLE PO ONE (13:21)
--- NOTE | 2023-06-05 14:20 | P.PN ---
Subjective Progress Note Date: 06/05/23 CHIEF COMPLAINT: GI bleed HISTORY OF PRESENT ILLNESS: Patient continues to have black stools as well as b right red blood. Patient had 4 bloody bowel movement yesterday and one this morning with clots. Patient has a known history of diverticular bleeds. Hemoglobin has decreased from 8.9-7.0. Iron low at 33. White count has normalized 10.5 patient denies any abdominal pain. PHYSICAL EXAM: VITAL SIGNS: Reviewed. GENERAL: Well-developed in no acute distress. ABDOMEN: Soft. Nondistended. Nontender. NEUROLOGIC: Alert and oriented. Cranial nerves II through XII grossly intact. ASSESSMENT: 1. Acute GI bleed 2. Acute blood loss anemia 3. History of diverticular bleed PLAN: -Tagged RBC scan ordered for further evaluation of GI bleed -2 units of blood ordered for hemoglobin of 7.0 -Repeat CBC after blood transfusion -Patient scheduled for EGD and colonoscopy tomorrow with Dr. flores -Start Wagner bowel prep today -NPO after midnight -Continue IV Protonix -Continue IV fluid Physician Daytime Caregiver note has been reviewed by physician. Signing provider agrees with the documented findings, assessment, and plan of care. Objective - Vital Signs Vital signs: Vital Signs Temp 98.3 F 06/05/23 08:00 Pulse 86 06/05/23 08:00 Resp 18 06/05/23 08:00 BP 111/74 06/05/23 08:00 Pulse Ox 96 06/05/23 08:00 FiO2 Intake & Output 06/04/23 06/05/23 06/05/23 18:59 06:59 18:59 Intake Total 180 0 100 Balance 180 0 100 Intake: Oral 180 0 100 Other: Voiding Method Toilet # Voids 1 1 - Labs CBC & Chem 7: 06/05/23 09:51 06/05/23 09:51 Labs: Abnormal Lab Results - Last 24 Hours (Table) 06/03/23 06/04/23 06/05/23 Range/Units 15:57 05:49 09:51 RBC 2.90 L (3.80-5.40) m/uL Hgb 7.0 L D (11.4-16.0) gm/dL Hct 22.4 L (34.0-46.0) % MCV 77.5 L (80.0-100.0) fL MCH 24.2 L (25.0-35.0) pg RDW 18.5 H (11.5-15.5) % Sodium (137-145) mmol/L Glucose (74-99) mg/dL Calcium (8.4-10.2) mg/dL Iron 33 L (50-170) UG/DL % Saturation 8.51 L (12.00-45.00) Crossmatch See Detail 06/05/23 Range/Units 09:51 RBC (3.80-5.40) m/uL Hgb (11.4-16.0) gm/dL Hct (34.0-46.0) % MCV (80.0-100.0) fL MCH (25.0-35.0) pg RDW (11.5-15.5) % Sodium 133 L (137-145) mmol/L Glucose 146 H (74-99) mg/dL Calcium 8.0 L (8.4-10.2) mg/dL Iron (50-170) UG/DL % Saturation (12.00-45.00) Crossmatch
--- NOTE | 2023-06-05 15:55 | P.CNPUL ---
History of Present Illness Consult date: 06/05/23 Chief complaint: Lower GI bleed History of present illness: This is a 72-year-old female patient who is being transferred to the intensive care unit for a suspected diverticular bleed. The patient had several episodes of large volume maroon color stool today and yesterday. She had a total of 4 episodes today along with blood clots. She became dizzy and diaphoretic and lightheaded. Based on that, ICU consultation was requested. Her most recent hemoglobin is down to 7 from 8.9 and the patient is going to receive a total of 2 units of packed RBCs. No chest pain. No angina pain no palpitations. She has undergone previous colectomy for diverticulosis in the past. This surgery was done and 2008. She also has undergone previous bariatric surgery including gastric sleeve and she has lost approximately 80 pounds over the years. She has history of inactive sarcoidosis. She does not take any form of anticoagulation. She has history of migraines, essential tremors, fibromyalgia, osteoarthritis and she has also had a previous history of a stroke. She is awake and alert and communicating. She is currently on room air oxygen. Her echo cardiac exam shows a normal LV function and she doesn't have any congestion heart failure. No 70 cardiac disease.The CAT scan of the abdomen and pelvis that was done during the current admission showed colonic diverticulosis without evidence of an acute diverticulitis. She also has a small umbilical hernia containing fat and nonobstructive small bowel. Her last colonoscopy was done in 2019 indicating extensive diverticular changes throughout the colon more significant in the sigmoid colon. No peptic ulcer disease. No history of any liver disease. Review of Systems CONSTITUTIONAL: No fever, no malaise, no fatigue. HEENT: No recent visual problems or hearing problems. Denied any sore throat. CARDIOVASCULAR: No chest pain, orthopnea, PND, no palpitations, no syncope. PULMONARY: No shortness of breath, no cough, no hemoptysis. GASTROINTESTINAL: As mentioned in HPI NEUROLOGICAL: No headaches, no weakness, no numbness. HEMATOLOGICAL: Denies any bleeding or petechiae. GENITOURINARY: Denies any burning micturition, frequency, or urgency. MUSCULOSKELETAL/RHEUMATOLOGICAL: Denies any joint pain, swelling, or any muscle pain. ENDOCRINE: Denies any polyuria or polydipsia. The rest of the 14-point review of systems is negative. 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 pt stated -had a pne vaccine 2-3 years ago but not srue of date. History of Any Multi-Drug Resistant Organisms: None Reported Past Surgical History: Appendectomy, Bariatric Surgery, Bowel Resection, Cholecystectomy, Joint Replacement, Orthopedic Surgery Additional Past Surgical History / Comment(s): kenyatta knee replacement, left shoulder rotator cuff, lap band- then removed , gastric sleeve Past Anesthesia/Blood Transfusion Reactions: No Reported Reaction Additional Past Anesthesia/Blood Transfusion Reaction / Comment(s): clausterphobia Past Psychological History: Anxiety, Panic Disorder Smoking Status: Unknown if ever smoked Past Alcohol Use History: None Reported Past Drug Use History: None Reported - Past Family History Mother Family Medical History: Cancer Additional Family Medical History / Comment(s): GALLBLADDER CA Father Family Medical History: Cancer Additional Family Medical History / Comment(s): THROAT/ESOPHAGEAL CA Sister(s) Family Medical History: Cancer Additional Family Medical History / Comment(s): OVARIAN CA Brother(s) Family Medical History: No Reported History (Patient has one brother no major medical problems.) Son(s) Family Medical History: No Reported History (Patient has 3 sons one of them with irritable bowel syndrome) Medications and Allergies Home Medications Medication Instructions Recorded Confirmed Type ALPRAZolam [Xanax] 0.5 - 1 mg PO BID PRN 12/20/15 06/03/23 History Cholecalciferol [Vitamin D3 (25 5,000 unit PO HS 12/20/15 06/03/23 History Mcg = 1000 Iu)] Cyanocobalamin (Vitamin B-12) 5,000 mcg SUBLINGUAL DAILY 12/20/15 06/03/23 History [Vitamin B-12] Levothyroxine Sodium [Synthroid] 75 mcg PO DAILY 12/20/15 06/03/23 History Loratadine [Claritin] 10 mg PO DAILY 12/20/15 06/03/23 History Multivitamins, Thera [Multivitamin 1 tab PO DAILY 12/20/15 06/03/23 History (formulary)] Pregabalin [Lyrica] 75 mg PO HS 12/22/16 06/03/23 History Butalb/APAP/Caff 50-325-40Mg 1 - 2 tab PO DAILY PRN 02/10/19 06/03/23 History [Fioricet 50-325-40] DULoxetine HCL [Cymbalta] 60 mg PO HS 02/10/19 06/03/23 History Furosemide [Lasix] 20 mg PO DAILY PRN 02/10/19 06/03/23 History DULoxetine HCL [Cymbalta] 30 mg PO HS 07/22/19 06/03/23 History Metoprolol Tartrate [Lopressor] 25 mg PO TID #90 tab 07/26/19 06/03/23 Rx Ascorbic Acid [Vitamin C] 1,000 mg PO DAILY 06/03/23 06/03/23 History Biotin 5 mg PO DAILY 06/03/23 06/03/23 History Glucosa Carter 2Kcl/Chondroitin Carter 1 cap PO DAILY 06/03/23 06/03/23 History [Glucosamine-Chondroitin Cap] Glucosa Carter 2Kcl/Chondroitin Carter 2 cap PO HS 06/03/23 06/03/23 History [Glucosamine-Chondroitin Cap] Omeprazole [PriLOSEC] 20 mg PO BID 06/03/23 06/03/23 History Vitamin B Complex 1 cap PO DAILY 06/03/23 06/03/23 History Allergies Allergy/AdvReac Type Severity Reaction Status Date / Time fluticasone propionate AdvReac Rapid Verified 06/03/23 18:45 [From Advair Diskus] Heart Rate prednisone AdvReac Rapid Verified 06/03/23 18:45 Heart Rate salmeterol xinafoate AdvReac Rapid Verified 06/03/23 18:45 [From Advair Diskus] Heart Rate Sulfa (Sulfonamide AdvReac Nausea & Verified 06/03/23 18:45 Antibiotics) Vomiting Physical Exam Vitals: Vital Signs Temp Pulse Pulse Resp BP BP Pulse Ox 06/05/23 14:27 82 16 115/68 94 L 06/05/23 14:08 74 18 109/68 94 L 06/05/23 14:04 98.6 F 76 18 102/57 92 L 06/05/23 08:00 98.3 F 86 18 111/74 96 06/05/23 04:00 72 18 118/67 98 06/05/23 02:00 83 18 06/05/23 00:00 83 18 115/56 96 06/04/23 20:00 98.1 F 101 H 18 112/56 96 06/04/23 16:30 100 20 112/60 96 06/04/23 16:00 101 H 20 117/62 95 Intake and Output 06/05/23 06/05/23 06/05/23 06:59 14:59 22:59 Intake Total 340 Balance 340 Intake: Oral 340 Blood Product 0 Unit 0 Other: Voiding Method Toilet # Voids 1 1 The patient appeared well nourished and normally developed. Vital signs as documented. Head exam is unremarkable. No scleral icterus or corneal arcus noted. Neck is without jugular venous distension, thyromegaly, or carotid bruits. Carotid upstrokes are brisk bilaterally. Lungs are clear to auscultation and percussion. Cardiac exam reveals the PMI to be normally sized and situated. Rhythm is regular. First and second heart sounds normal. No murmurs, rubs or gallops. Abdominal exam reveals normal bowel sounds, no masses, no organomegaly and no aortic enlargement. Extremities are nonedematous and both femoral and pedal pulses are normal.Examination of the skin revealed no evidence of significant rashes, suspicious appearing nevi or other concerning lesions. Neurologically the patient is awake and alert and there is no focal neurological deficit Results - Laboratory Findings CBC and BMP: 06/05/23 09:51 06/05/23 09:51 ABG WBC 10.5 k/uL (3.8-10.6) 06/05/23 09:51 RBC 2.90 m/uL (3.80-5.40) L 06/05/23 09:51 Hgb 7.0 gm/dL (11.4-16.0) L D 06/05/23 09:51 Hct 22.4 % (34.0-46.0) L 06/05/23 09:51 MCV 77.5 fL (80.0-100.0) L 06/05/23 09:51 MCH 24.2 pg (25.0-35.0) L 06/05/23 09:51 MCHC 31.2 g/dL (31.0-37.0) 06/05/23 09:51 RDW 18.5 % (11.5-15.5) H 06/05/23 09:51 Plt Count 325 k/uL (150-450) 06/05/23 09:51 MPV 7.6 06/05/23 09:51 Neutrophils % 77 % 06/03/23 15:57 Lymphocytes % 17 % 06/03/23 15:57 Monocytes % 4 % 06/03/23 15:57 Eosinophils % 1 % 06/03/23 15:57 Basophils % 0 % 06/03/23 15:57 Neutrophils # 8.1 k/uL (1.3-7.7) H 06/03/23 15:57 Lymphocytes # 1.8 k/uL (1.0-4.8) 06/03/23 15:57 Monocytes # 0.4 k/uL (0-1.0) 06/03/23 15:57 Eosinophils # 0.1 k/uL (0-0.7) 06/03/23 15:57 Basophils # 0.0 k/uL (0-0.2) 06/03/23 15:57 Hypochromasia Marked 06/05/23 09:51 Anisocytosis Slight 06/05/23 09:51 Microcytosis Slight 06/05/23 09:51 PT 10.4 sec (9.0-12.0) 06/03/23 15:57 INR 1.0 (<1.2) 06/03/23 15:57 APTT 22.3 sec (22.0-30.0) 06/03/23 15:57 Sodium 133 mmol/L (137-145) L 06/05/23 09:51 Potassium 4.0 mmol/L (3.5-5.1) 06/05/23 09:51 Chloride 99 mmol/L (98-107) 06/05/23 09:51 Carbon Dioxide 29 mmol/L (22-30) 06/05/23 09:51 Anion Gap 5 mmol/L 06/05/23 09:51 BUN 17 mg/dL (7-17) 06/05/23 09:51 Creatinine 0.77 mg/dL (0.52-1.04) 06/05/23 09:51 Est GFR (CKD-EPI)AfAm 89 (>60 ml/min/1.73 sqM) 06/05/23 09:51 Est GFR (CKD-EPI)NonAf 77 (>60 ml/min/1.73 sqM) 06/05/23 09:51 Glucose 146 mg/dL (74-99) H 06/05/23 09:51 Lactic Ac Sepsis Rflx Y 06/03/23 16:45 Plasma Lactic Acid Dominguez 0.8 mmol/L (0.7-2.0) 06/03/23 19:06 Calcium 8.0 mg/dL (8.4-10.2) L 06/05/23 09:51 Magnesium 2.0 mg/dL (1.6-2.3) 06/05/23 09:51 Iron 33 UG/DL (50-170) L 06/04/23 05:49 TIBC 388 UG/DL (228-460) 06/04/23 05:49 % Saturation 8.51 (12.00-45.00) L 06/04/23 05:49 Transferrin 277.0 mg/dL (204.0-354.0) 06/04/23 05:49 Total Bilirubin 0.4 mg/dL (0.2-1.3) 06/03/23 15:57 AST 21 U/L (14-36) 06/03/23 15:57 ALT 17 U/L (4-34) 06/03/23 15:57 Alkaline Phosphatase 124 U/L (38-126) 06/03/23 15:57 Troponin I <0.012 ng/mL (0.000-0.034) 06/03/23 15:57 Total Protein 6.3 g/dL (6.3-8.2) 06/03/23 15:57 Albumin 3.3 g/dL (3.5-5.0) L 06/03/23 15:57 Lipase 69 U/L (23-300) 06/03/23 15:57 Stool Occult Blood Positive (Negative) H 06/03/23 15:57 PT/INR, D-dimer PT 10.4 sec (9.0-12.0) 06/03/23 15:57 INR 1.0 (<1.2) 06/03/23 15:57 Abnormal lab findings: Abnormal Labs 06/03/23 06/03/23 06/03/23 15:57 15:57 15:57 WBC RBC Hgb 10.0 L Hct 30.7 L MCV 75.1 L MCH 24.5 L RDW 18.0 H Neutrophils # 8.1 H Sodium 134 L Carbon Dioxide Glucose 141 H Plasma Lactic Acid Dominguez 2.2 H* Calcium Iron % Saturation Albumin 3.3 L Stool Occult Blood Crossmatch 06/03/23 06/03/23 06/03/23 15:57 15:57 21:06 WBC 12.9 H RBC Hgb 9.6 L Hct 29.5 L MCV 75.0 L MCH 24.6 L RDW 17.9 H Neutrophils # Sodium Carbon Dioxide Glucose Plasma Lactic Acid Dominguez Calcium Iron % Saturation Albumin Stool Occult Blood Positive H Crossmatch See Detail 06/04/23 06/04/23 06/04/23 01:54 05:49 05:49 WBC 11.2 H RBC Hgb 9.1 L Hct 28.8 L MCV 75.8 L MCH 24.0 L RDW 17.8 H Neutrophils # Sodium 135 L Carbon Dioxide 32 H Glucose 135 H Plasma Lactic Acid Dominguez Calcium 8.2 L Iron 33 L % Saturation 8.51 L Albumin Stool Occult Blood Crossmatch 06/04/23 06/05/23 06/05/23 06:18 09:51 09:51 WBC 15.3 H RBC 3.68 L 2.90 L Hgb 8.9 L 7.0 L D Hct 28.4 L 22.4 L MCV 77.2 L 77.5 L MCH 24.2 L 24.2 L RDW 17.9 H 18.5 H Neutrophils # Sodium 133 L Carbon Dioxide Glucose 146 H Plasma Lactic Acid Dominguez Calcium 8.0 L Iron % Saturation Albumin Stool Occult Blood Crossmatch Assessment and Plan Plan: Acute diverticular disease with recurrent episodes of lower GI bleed and a drop in hemoglobin down to 7 along with some hemodynamic changes and dizziness, and the patient is receiving a total of 2 units of packed RBC. Currently, normo tensive and hemodynamically stable. Her last bout of GI bleed was approximately 2 hours ago Extensive colonic and sigmoid diverticular disease with previous episodes of GI bleeding Acute blood loss anemia in hemoglobin down to 7. Normal coagulation profile. Normal platelets History of bariatric surgery and the patient has undergone gastric sleeve History of fibromyalgia History of essential tremors History of sarcoidosis which is currently inactive and stable History of CVA Osteoarthritis Hypothyroidism Chronic anxiety/panic Plan IV fluids at the rate of 100 mL an hour of normal saline This is a total of 2 units of packed RBC and the repeat CBC Keep the patient nothing by mouth for now The patient was seen by general surgery Based on her condition and comorbidities, I think it's reasonable to transfer this patient to a tertiary care center to be evaluated for her GI bleeding. Consider embolization. She has hemodynamic is stable and for nausea which has of the ICU for further monitoring.
[2023-06-05 16:14] LABS: Glucose,Whole Blood 150 mg/dL (70-110)
--- NOTE | 2023-06-05 18:24 | NM ---
EXAMINATION TYPE: NM GI bleeding DATE OF EXAM: 06/05/2023 CLINICAL INDICATION: Female, 72 years old with history of GI Bleed; COMPARISON: NONE Following administration of 3 ml PYP 25.6 mCi Tc 99m Sodium pertechnetate. Immediate images post inje ction. FINDINGS: Normal tracer activity is seen in the blood pool of the abdominal aorta, common iliac arteries, femor al arteries, liver, and spleen on all of the interval images. Later images show accumulation of trace r in the urinary bladder, which is consistent with excreted tracer. No abnormal tracer uptake is pres ent outside the blood pool that would be consistent with an active GI bleed. IMPRESSION: Negative examination. No evidence of active gastrointestinal bleeding during the initial 1 hr observa tion period.
[2023-06-05] MEDS: DULoxetine HCL 60 MG CAPSULE.DR PO SCH (20:08)
[2023-06-05] MEDS: DULoxetine HCL 30 MG CAPSULE.DR PO SCH (20:08)
[2023-06-05] MEDS: PREGABALIN 75 MG CAP PO SCH (20:09)
--- NOTE | 2023-06-05 20:18 | P.DS ---
Providers Date of admission: 06/03/23 17:37 Expected date of discharge: 06/05/23 Attending physician: Marylu Mcdaniel MD Consults: 06/03/23 17:31 Consult Physician Urgent Consulting Provider: Rudolph Boudreaux Consult Reason/Comments: lower gi bleed Do you want consulting provider notified?: Already Contacted 06/05/23 14:32 Consult Physician Urgent Consulting Provider: Polo Browne Consult Reason/Comments: icu management Do you want consulting provider notified?: Yes Primary care physician: [facility] Course: Final diagnosis -Lower GI bleed, with history of diverticular disease -Acute blood loss anemia, secondary to GI bleed, with drop in hemoglobin from 9.6 down to 7: Requiring 2 units of PRBCs and transferred to ICU patient is having multiple bloody bowel movements with bright red blood and clots -history of microcytic anemia, possible iron deficiency, work up in progress -CVA/TIA history -Asthma without any acute exacerbation -Hyperlipidemia -History of hypothyroidism -History of colonic and sigmoid diverticular disease with previous episodes of GI bleeding -Fibromyalgia -Morbid obesity with a BMI of 48.5 -Leukocytosis reactive secondary to GI bleed no evidence of infection at this time -DVT prophylaxis: No pharmacological DVT prophylaxis as patient has acute lower GI bleed -GI prophylaxis -full code Discharge disposition Patient is being transferred in a stable condition with guarded prognosis to [facility] in [place]. Patient has been accepted by Dr. Frias and currently awaiting an ICU bed. Patient requiring transfer to tertiary treatment center for active GI bleeding with symptomatic anemia and currently no GI services available here at our facility. Total time taken is greater than 35 minutes. Hospital course This is a 72-year-old female who was recently admitted with lower abdominal pain and noted lower GI bleed. Patient was having dark stools with history of iron deficiency anemia from initial hemoglobin was 9.6 on admission and current hemoglobin today is 7.0 and is noted to have been having multiple loose bowel movements of bright red blood along with clots and some dark loose stools. Miguel parker does have history of diverticular disease and most recent CT shows no active diverticulitis noted. General surgery evaluating and given limited OR time patient was scheduled to undergo endoscopy Thursday. Patient became more symptomatic with soft blood pressure and having some shortness of breath with drop in hemoglobin requiring transfusions and concerns for continued bleeding recommending transfer to tertiary treatment center. Patient was agreeable with this and has been accepted at [facility] by Dr. Frias. Patient will be going to ICU for active bleeding. Covid testing was negative. Patient underwent tagged RBC scan with no evidence of active bleed. Receiving unit 2 of 2 ordered PRBC currently and will follow-up with close monitoring of hemoglobin. Currently awaiting a bed at [facility]. Currently no reports of chest pain, shortness of breath, or palpitations. Patient is afebrile. No reports of nausea or vomiting and patient is nothing by mouth. Prognosis is guarded. Physical exam: Gen: This is a 72-year-old female who is awake, alert and oriented 3, well- developed, well-nourished, morbidly obese HEENT: Head is atraumatic, normocephalic. Pupils equal, round. Sclerae is anicteric. NECK: Supple. No JVD. No lymphadenopathy. No thyromegaly. LUNGS: Diminished breath sounds bilaterally with no wheezes or rhonchi. No intercostal retractions. HEART: Regular rate and rhythm. No murmur. ABDOMEN: Soft. Obese. Bowel sounds are present. No masses. No tenderness. EXTREMITIES: No pedal edema. No calf tenderness. NEUROLOGICAL: Patient is awake, alert and oriented x3. Cranial nerves 2 through 12 are grossly intact. Diffusely weak. Please refer to medication reconciliation sheet for a list of medications. The impression and plan of care has been dictated by Sheri Gonzalez, Nurse Practitioner as directed. Dr. Pamella MD I have performed a history and examination and MDM of this patient, discussed the same with the dictator, and agree with the dictator's assessment and plan as written ,documented as a scribe. Based on total visit time, I have performed more than 50% of the visit. Patient Condition at Discharge: Critical Plan - Discharge Summary Discharge Rx Participant: Yes New Discharge Prescriptions: No Action Levothyroxine Sodium [Synthroid] 75 mcg PO DAILY ALPRAZolam [Xanax] 0.5 - 1 mg PO BID PRN PRN Reason: Anxiety Multivitamins, Thera [Multivitamin (formulary)] 1 tab PO DAILY Loratadine [Claritin] 10 mg PO DAILY Cyanocobalamin (Vitamin B-12) [Vitamin B-12] 5,000 mcg SUBLINGUAL DAILY Cholecalciferol [Vitamin D3 (25 Mcg = 1000 Iu)] 5,000 unit PO HS Pregabalin [Lyrica] 75 mg PO HS Butalb/APAP/Caff 50-325-40Mg [Fioricet 50-325-40] 1 - 2 tab PO DAILY PRN PRN Reason: Migraine Headache DULoxetine HCL [Cymbalta] 60 mg PO HS Furosemide [Lasix] 20 mg PO DAILY PRN PRN Reason: leg swelling DULoxetine HCL [Cymbalta] 30 mg PO HS Metoprolol Tartrate [Lopressor] 25 mg PO TID #90 tab Glucosa Carter 2Kcl/Chondroitin Carter [Glucosamine-Chondroitin Cap] 2 cap PO HS Biotin 5 mg PO DAILY Glucosa Carter 2Kcl/Chondroitin Carter [Glucosamine-Chondroitin Cap] 1 cap PO DAILY Vitamin B Complex 1 cap PO DAILY Omeprazole [PriLOSEC] 20 mg PO BID Ascorbic Acid [Vitamin C] 1,000 mg PO DAILY Discharge Medication List ALPRAZolam [Xanax] 0.5 - 1 mg PO BID PRN 12/20/15 [History] Cholecalciferol [Vitamin D3 (25 Mcg = 1000 Iu)] 5,000 unit PO HS 12/20/15 [History] Cyanocobalamin (Vitamin B-12) [Vitamin B-12] 5,000 mcg SUBLINGUAL DAILY 12/20/15 [History] Levothyroxine Sodium [Synthroid] 75 mcg PO DAILY 12/20/15 [History] Loratadine [Claritin] 10 mg PO DAILY 12/20/15 [History] Multivitamins, Thera [Multivitamin (formulary)] 1 tab PO DAILY 12/20/15 [History] Pregabalin [Lyrica] 75 mg PO HS 12/22/16 [History] Butalb/APAP/Caff 50-325-40Mg [Fioricet 50-325-40] 1 - 2 tab PO DAILY PRN 02/10/19 [History] DULoxetine HCL [Cymbalta] 60 mg PO HS 02/10/19 [History] Furosemide [Lasix] 20 mg PO DAILY PRN 02/10/19 [History] DULoxetine HCL [Cymbalta] 30 mg PO HS 07/22/19 [History] Metoprolol Tartrate [Lopressor] 25 mg PO TID #90 tab 07/26/19 [Rx] Ascorbic Acid [Vitamin C] 1,000 mg PO DAILY 06/03/23 [History] Biotin 5 mg PO DAILY 06/03/23 [History] Glucosa Carter 2Kcl/Chondroitin Carter [Glucosamine-Chondroitin Cap] 1 cap PO DAILY 06/03/23 [History] Glucosa Carter 2Kcl/Chondroitin Carter [Glucosamine-Chondroitin Cap] 2 cap PO HS 06/03/23 [History] Omeprazole [PriLOSEC] 20 mg PO BID 06/03/23 [History] Vitamin B Complex 1 cap PO DAILY 06/03/23 [History] Follow up Appointment(s)/Referral(s): Rajan Henao DO [Primary Care Provider] - 1-2 days
[2023-06-05] MEDS ORDERED: LORazepam 2 MG/ML INJ IV STA (22:07)
[2023-06-05 22:12] VITALS: BP 120/50; PULSE 87; RESP 18; TEMP 97.8
[2023-06-05 22:35] LABS: Anisocytosis Slight; Basophils % (A) 0 %; Eosinophils # (A) 0.1 k/uL (0-0.7); Eosinophils % (A) 1 %; HCT 26.1 % (34.0-46.0); HGB 8.4 gm/dL (11.4-16.0); Hypochromasia Slight; Lymphocytes # (A) 1.9 k/uL (1.0-4.8); Lymphocytes % (A) 17 %; MCH 25.3 pg (25.0-35.0); MCHC 32.3 g/dL (31.0-37.0); MCV 78.3 fL (80.0-100.0); Mean Platelet Volume 7.4; Microcytosis Slight; Monocytes # (A) 0.5 k/uL (0-1.0); Monocytes % (A) 5 %; Neutrophils # (A) 7.9 k/uL (1.3-7.7); Neutrophils % (A) 74 %; Platelet Count 320 k/uL (150-450); RBC 3.34 m/uL (3.80-5.40); RDW 18.4 % (11.5-15.5); WBC 10.7 k/uL (3.8-10.6)
== END 2023-06-05 23:51 | disposition short-term general hospital (02) | DRG 378 ==
LOC: EC 15:03 → 3SCARD 17:37 → 2SICU 06-05 16:02
PROVIDERS: ADMIT Internal Medicine; ATTEND Internal Medicine
PROC: 30233N1 Transfusion of Nonautologous Red Blood Cells into Peripheral Vein, Percutaneous Approach (ICD-10-PCS; principal; 2023-06-05)
DX: K57.31 Diverticulosis of large intestine without perforation or abscess with bleeding (principal); D62 Acute posthemorrhagic anemia; Z68.42 Body mass index [BMI] 45.0-49.9, adult; E66.01 Morbid (severe) obesity due to excess calories; E78.5 Hyperlipidemia, unspecified; M79.7 Fibromyalgia; D86.9 Sarcoidosis, unspecified; E03.9 Hypothyroidism, unspecified; F41.0 Panic disorder [episodic paroxysmal anxiety]; F41.9 Anxiety disorder, unspecified; G89.29 Other chronic pain; M54.9 Dorsalgia, unspecified; K21.9 Gastro-esophageal reflux disease without esophagitis; K42.9 Umbilical hernia without obstruction or gangrene; Z20.822 Contact with and (suspected) exposure to COVID-19; G25.0 Essential tremor; Z96.653 Presence of artificial knee joint, bilateral; Z79.890 Hormone replacement therapy; Z86.73 Personal history of transient ischemic attack (TIA), and cerebral infarction without residual deficits; Z79.899 Other long term (current) drug therapy; Z90.49 Acquired absence of other specified parts of digestive tract; Z98.84 Bariatric surgery status
CPT/HCPCS: 36415; 74177; 78278; 80048; 80053; 82272; 83540; 83550; 83605; 83690; 83735; 84484; 85025; 85027; 85610; 85730; 86850; 86900; 86901; 86920; 87635; 96374; 96376; 99285

== ENCOUNTER → 2023-07-06 | Day surgery (SDC) | payer MEDICARE, OTHER ==
[2023-07-03 08:52] VITALS: BMI 46.6
[2023-07-06 06:47] VITALS: BP 148/67; PULSE 90; RESP 18
== END ==
LOC: ORWHC2ENDO 06:00
PROVIDERS: ATTEND Internal Medicine Gastroenterology
DX: D50.9 Iron deficiency anemia, unspecified (principal); Z79.899 Other long term (current) drug therapy
CPT/HCPCS: 91110

== ENCOUNTER 2024-04-14 19:41 | Emergency (ER) | payer BC, MEDICARE ==
[2024-04-14 19:45] VITALS: RESP 18; TEMP 97.9
--- NOTE | 2024-04-14 20:08 | ED ---
Wound/Laceration HPI - General Chief Complaint: Wound/Laceration Stated Complaint: fall Time Seen by Provider: 04/14/24 20:07 Source: patient, RN notes reviewed Mode of arrival: ambulatory Limitations: no limitations - History of Present Illness Initial Comments: 73-year-old female presented to ER with a chief complaint of a fall. Patient states she was walking out onto the deck and accidentally tripped on a rug on the floor. She states that she fell straight forward hitting her left forehead. She denies loss of consciousness or blood thinner use. She denies any dizziness, lightheadedness, chest pain or shortness of breath prior to fall. Tetanus is up-to-date. No other injuries or complaints. - Related Data Home Medications Medication Instructions Recorded Confirmed ALPRAZolam [Xanax] 0.5 - 1 mg PO BID PRN 12/20/15 07/06/23 Cholecalciferol [Vitamin D3 (25 5,000 unit PO HS 12/20/15 07/06/23 Mcg = 1000 Iu)] Cyanocobalamin (Vitamin B-12) 5,000 mcg SUBLINGUAL DAILY 12/20/15 07/06/23 [Vitamin B-12] Levothyroxine Sodium [Synthroid] 75 mcg PO DAILY 12/20/15 07/06/23 Loratadine [Claritin] 10 mg PO DAILY 12/20/15 07/06/23 Multivitamins, Thera [Multivitamin 1 tab PO DAILY 12/20/15 07/06/23 (formulary)] Pregabalin [Lyrica] 75 mg PO HS 12/22/16 07/06/23 Butalb/APAP/Caff 50-325-40Mg 1 - 2 tab PO DAILY PRN 02/10/19 07/06/23 [Fioricet 50-325-40] DULoxetine HCL [Cymbalta] 60 mg PO HS 02/10/19 07/06/23 Furosemide [Lasix] 20 mg PO DAILY PRN 02/10/19 07/06/23 DULoxetine HCL [Cymbalta] 30 mg PO HS 07/22/19 07/06/23 Ascorbic Acid [Vitamin C] 1,000 mg PO DAILY 06/03/23 07/06/23 Biotin 5 mg PO DAILY 06/03/23 07/06/23 Glucosa Carter 2Kcl/Chondroitin Carter 1 cap PO DAILY 06/03/23 07/06/23 [Glucosamine-Chondroitin Cap] Omeprazole [PriLOSEC] 20 mg PO BID 06/03/23 07/06/23 Vitamin B Complex 1 cap PO DAILY 06/03/23 07/06/23 Ferrous Sulfate [Feosol] 325 mg PO DAILY 07/03/23 07/06/23 Previous Rx's Medication Instructions Recorded Metoprolol Tartrate [Lopressor] 25 mg PO TID #90 tab 07/26/19 Allergies Allergy/AdvReac Type Severity Reaction Status Date / Time fluticasone propionate AdvReac Rapid Verified 04/14/24 19:45 [From Advair Diskus] Heart Rate prednisone AdvReac Rapid Verified 04/14/24 19:45 Heart Rate salmeterol xinafoate AdvReac Rapid Verified 04/14/24 19:45 [From Advair Diskus] Heart Rate Sulfa (Sulfonamide AdvReac Nausea & Verified 04/14/24 19:45 Antibiotics) Vomiting Review of Systems ROS Statement: Those systems with pertinent positive or pertinent negative responses have been documented in the HPI. ROS Other: All systems not noted in ROS Statement are negative. 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 pt stated -had a pne vaccine 2-3 years ago but not srue of date. History of Any Multi-Drug Resistant Organisms: None Reported Past Surgical History: Appendectomy, Bariatric Surgery, Bowel Resection, Cholecystectomy, Joint Replacement, Orthopedic Surgery Additional Past Surgical History / Comment(s): kenyatta knee replacement, left shoulder rotator cuff, lap band- then removed , gastric sleeve Past Anesthesia/Blood Transfusion Reactions: No Reported Reaction Additional Past Anesthesia/Blood Transfusion Reaction / Comment(s): clausterphobia Past Psychological History: Anxiety, Panic Disorder Smoking Status: Current every day smoker Past Alcohol Use History: Rare Past Drug Use History: None Reported - Past Family History Mother Family Medical History: Cancer Additional Family Medical History / Comment(s): GALLBLADDER CA Father Family Medical History: Cancer Additional Family Medical History / Comment(s): THROAT/ESOPHAGEAL CA Sister(s) Family Medical History: Cancer Additional Family Medical History / Comment(s): OVARIAN CA Brother(s) Family Medical History: No Reported History (Patient has one brother no major medical problems.) Son(s) Family Medical History: No Reported History (Patient has 3 sons one of them with irritable bowel syndrome) General Exam Limitations: no limitations General appearance: alert, in no apparent distress Head exam: Present: atraumatic, normocephalic, normal inspection, other (1 cm superficial laceration to right eyebrow. No active bleeding. Mild surrounding ecchymosis) Eye exam: Present: normal appearance, PERRL, EOMI. Absent: scleral icterus, conjunctival injection, periorbital swelling Pupils: Present: normal accommodation ENT exam: Present: normal exam, normal oropharynx, mucous membranes moist Neck exam: Present: normal inspection. Absent: tenderness, meningismus, lymphadenopathy Respiratory exam: Present: normal lung sounds bilaterally. Absent: respiratory distress, wheezes, rales, rhonchi, stridor Cardiovascular Exam: Present: regular rate, normal rhythm, normal heart sounds. Absent: systolic murmur, diastolic murmur, rubs, gallop, clicks GI/Abdominal exam: Present: soft, normal bowel sounds. Absent: distended, tenderness, guarding, rebound, rigid Extremities exam: Present: normal inspection, full ROM, normal capillary refill. Absent: tenderness, pedal edema, joint swelling, calf tenderness Skin exam: Present: warm, dry, intact, normal color. Absent: rash Course Vital Signs 04/14/24 04/14/24 19:43 22:14 Temperature 97.9 F 97.9 F Pulse Rate 71 75 Respiratory 18 18 Rate Blood Pressure 159/84 124/70 O2 Sat by Pulse 95 95 Oximetry Procedures - Laceration Laceration #1 Consent Obtained: verbal consent Indication: laceration Site: face Size (cm): 1 Description: linear Depth: simple, single layer Anesthetic Used: lidocaine 1% Anesthesia Technique: local infiltration Amount (mls): 2 Pre-repair: wound explored, irrigated extensively, deep structures intact Type of Sutures: nylon Size of Sutures: 5-0 Number of Sutures: 1 Technique: simple, interrupted Patient Tolerated Procedure: well Medical Decision Making - Medical Decision Making Was pt. sent in by a medical professional or institution ([facility]dez, [employer]IL DISTRIBUTOR TENDER, urgent care, hospital, or fpc...) When possible be specific @ -No Did you speak to anyone other than the patient for history (EMS, parent, family, police, friend...)? What history was obtained from this source @ -No Did you review nursing and triage notes (agree or disagree)? Why? @ -I reviewed and agree with nursing and triage notes Were old charts reviewed (outside hosp., previous admission, EMS record, old EKG, old radiological studies, urgent care reports/EKG's, fpc records)? Report findings @ -No old charts were reviewed Differential Diagnosis (chest pain, altered mental status, abdominal pain women, abdominal pain men, vaginal bleeding, weakness, fever, dyspnea, syncope, headache, dizziness, GI bleed, back pain, seizure, CVA, palpatations, mental health, musculoskeletal)? @ -Fracture, dislocation, contusion, hematoma, intracranial hemorrhage, concussion, abrasion, laceration this list does not like to be all-inclusive EKG interpreted by me (3pts min.). @ -None X-rays interpreted by me (1pt min.). @ -None done CT interpreted by me (1pt min.). @ -CT brain negative for acute intracranial process. U/S interpreted by me (1pt. min.). @ -None done What testing was considered but not performed or refused? (CT, X-rays, U/S, labs)? Why? @ -None What meds were considered but not given or refused? Why? @ -None Did you discuss the management of the patient with other professionals (professionals i.e. PH[facility] Méndez, OIL DISTRIBUTOR TENDER, lab, RT, psych nurse, addiction social worker, immigration lawyer, teacher, lodge officer, registered nurse hh case manager)? Give summary @ -No Was smoking cessation discussed for >3mins.? @ -No Was critical care preformed (if so, how long)? @ -No Were there social determinants of health that impacted care today? How? (Homelessness, low income, unemployed, alcoholism, drug addiction, transportation, low edu. Level, literacy, decrease access to med. care, skilled nursing, rehab)? @ -No Was there de-escalation of care discussed even if they declined (Discuss DNR or withdrawal of care, Hospice)? DNR status @ -No What co-morbidities impacted this encounter? (DM, HTN, Smoking, COPD, CAD, Cancer, CVA, ARF, Chemo, Hep., AIDS, mental health diagnosis, sleep apnea, morbid obesity)? @ -Obese/advanced age Was patient admitted / discharged? Hospital course, mention meds given and route, prescriptions, significant lab abnormalities, going to OR and other pertinent info. @ -Discharge. 73 year old female presenting to the ER with a chief complaint of a mechanical fall. Vitals stable. Exam remarkable for 1 cm not actively bleeding laceration to right eyebrow. GCS 15. No acute neurological findings on exam. Bilateral upper and lower extremities neurovascular intact. No focal bony tenderness. CT brain performed due to head injury and advanced age. CT negative for acute intracranial process. Laceration closed using 1 simple interrupted suture. Patient tolerated procedure well. Tetanus is up-to-date per patient. Upon reevaluation, patient resting comfortably in exam room in no signs of acute distress. Patient eager for discharge. Results discussed with patient, all questions answered. I advised suture removal in 3 to 5 days. Sutur e care and return parameters discussed. Patient discharged in stable condition with follow-up to PCP. Patient verbally expressed understanding and agreement with care plan. Case discussed with ED attending, Dr. Hartman. Undiagnosed new problem with uncertain prognosis? @ -No Drug Therapy requiring intensive monitoring for toxicity (Heparin, Nitro, Insulin, Cardizem)? @ -No Were any procedures done? @ -Yes, laceration repair Diagnosis/symptom? @ -Laceration/hematoma Acute, or Chronic, or Acute on Chronic? @ -Acute Uncomplicated (without systemic symptoms) or Complicated (systemic symptoms)? @ -Uncomplicated Side effects of treatment? @ -No Exacerbation, Progression, or Severe Exacerbation? @ -No Poses a threat to life or bodily function? How? (Chest pain, [place], NM, pneumonia, PE, COPD, DKA, ARF, appy, cholecystitis, CVA, Diverticulitis, Homicidal, Suicidal, threat to staff... and all critical care pts) @ -No - Radiology Data Radiology results: report reviewed, image reviewed Disposition Clinical Impression: Laceration, Hematoma Disposition: HOME SELF-CARE Condition: Stable Instructions (If sedation given, give patient instructions): Care For Your Stitches (ED), Hematoma (ED) Additional Instructions: I recommend ice and [id number] Tylenol and Motrin for pain control. Have sutures removed in 5 days. Follow-up with PCP. Return to the ER for any new or worsening concerns. Is patient prescribed a controlled substance at d/c from ED?: No Referrals: Rajan Henao DO [Primary Care Provider] - 1-2 days Time of Disposition: 22:04
[2024-04-14] MEDS: LIDOCAINE 1% INJ 10MG/ML (20 ML MDV) SQ ONE (20:42)
--- NOTE | 2024-04-14 21:25 | CT ---
EXAMINATION TYPE: CT brain wo con CT DLP: 1138.9 mGycm, Automated exposure control for dose reduction was used. DATE OF EXAM: 04/14/2024 9:00 PM COMPARISON: None.. CLINICAL INDICATION:Female, 73 years old with history of fall, Fall, hit head, no LOC, no thinners. TECHNIQUE: Brain: Axial CT images of the brain were obtained with coronal and sagittal reformats created and rev iewed. Contrast used: None. Oral contrast used: None. FINDINGS: Extra-axial spaces: No abnormal extra-axial fluid collections. Basilar cisterns are patent. Ventricular system: Ventricles appear dilated in proportion to the degree of cerebral atrophy. Cerebral parenchyma: No increased attenuation to suggest acute intraparenchymal hemorrhage. The gra y-white matter interface appears maintained. Moderate generalized brain atrophy. Scattered hypoatte nuating areas are seen within the cerebral white matter, nonspecific but most often seen with chronic microvascular ischemic changes; moderate in degree. Cerebellum: No acute abnormality. Mass effect: No evidence of mass effect or midline shift. Intracranial vasculature: Atherosclerotic calcifications of the larger arteries near the skull base. Soft tissues: No acute or concerning abnormality. Visualized orbits: Orbital contents appear grossly intact. There has likely been previous lens surg mickie. Calvarium/osseous structures: No evidence of calvarial fracture. Paranasal sinuses and mastoid air cells: Clear. MRI is more sensitive for detecting acute processes such as infarct, and may be considered if clinica lly warranted. IMPRESSION: No acute intracranial CT abnormality.
[2024-04-14 22:16] VITALS: BP 124/70; PULSE 75
== END 2024-04-14 22:14 | disposition home or self-care (01) ==
LOC: EC 19:41
DX: S00.83XA Contusion of other part of head, initial encounter (principal); F17.200 Nicotine dependence, unspecified, uncomplicated; Z88.2 Allergy status to sulfonamides; Z88.8 Allergy status to other drugs, medicaments and biological substances; W01.0XXA Fall on same level from slipping, tripping and stumbling without subsequent striking against object, initial encounter
CPT/HCPCS: 70450; 99283; 12011; J2001